=== PATIENT | male | born 1950 | race Caucasian/White ===

== ENCOUNTER 2020-05-09 09:50 | Emergency (ER) | payer OTHER, SELFPAY ==
[2020-05-09 09:52] VITALS: BP 114/67; PULSE 61; RESP 17; TEMP 36.6; O2SAT 96; BMI 32.3
--- NOTE | 2020-05-09 10:32 | ED.DCSUM_ITS ---
- ER Visit Summary Date of Service: 05/09/20 Chief Complaint: [Not feeling well] History of Present Illness: The patient is a 70 M [presents to the emergency department with complaint of illness for the last week and a half. Patient complains of a mild cough. Has had fever. This morning he had fever up to 101.3. Patient's had diarrhea off and on for several days. He denies any vomiting. He denies any exposures to COVID-19 although he has been around some individuals that have been ill. Patient has a history of hypertension. Patient denies urinary symptoms. He denies any abdominal pain. She denies headache or body aches. Patient denies sore throat. Patient does state that he is had somewhat diminished sense of taste.] Physical Examination: [HEENT-PERRLA, EOMI. Cranial nerves II through XII grossly intact. TMs clear. Mucous membranes moist. No adenopathy. Cardiovascular-regular rate and rhythm without murmur or ectopy Lungs-clear to auscultation, chest wall stable without crepitus or subcu emphysema Abdomen-normoactive bowel sounds, soft, nontender, no rebound or rigidity, no peritoneal signs. Extremities-intact ?4, normal range of motion, normal pulses, atraumatic] Test Results: [CBC with differential showing a 2.9, hemoglobin 13.8, hematocrit 40, platelets 102. Patient had 16% lymphocytes. Chemistries unremarkable. Urinalysis ordered and pending. Chest x-ray obtained showed left lower lobe infiltrate as well as possible infiltrate of the right lower lobe and right upper lobe.] Emergency Department Course and Treatment: [Blood cultures ordered.] Patient had Covid 19 swab ordered which will be a send out. Patient was started on Levaquin 750 mg IV. Treatment Plan: [Patient will be treated with Levaquin to cover for bacterial causes although my suspicion is that this is a viral pneumonia such as possibly COVID-19. Patient will be advised to self quarantine for the next 14 days. Patient advised to return to the ER if increasing shortness of breath or condition should worsen anyway.] Patient is in no respiratory distress. Vital signs are unremarkable. Disposition: [Discharged home in stable condition] Impression: [Pneumonia-suspect viral-rule out COVID-19] This note was generated with [employer] software. It may contain incorrect words, spelling, and punctuation that were not noted in review of the chart prior to signing ED Disposition - Plan for ED Patient: Referrals: Ellis Carter DO [Primary Care Provider] -
[2020-05-09 11:16] LABS: Anion Gap 6 (5-15); BUN 11 mg/dL (7-18); BUN/Creat Ratio 12.5 RATIO (10-20); Calcium,Total 8.3 mg/dL (8.5-10.1); Chloride 100 mmol/L (98-107); Creatinine, Serum 0.88 mg/dL (0.70-1.30); EST Glomerular Filtration Rate 91 mL/min (>60); Est Glom Filt Rate - Afr Amer 110 mL/min (>60); Estimated Creatinine Clearance 69.89 ml/min; Glucose 99 mg/dL (74-106); Potassium 3.5 mmol/L (3.5-5.1); Sodium Level 135 mmol/L (136-145)
[2020-05-09 11:17] LABS: Absolute Lymphocyte Count 0.46 X10^3/uL (0.83-4.51); Absolute Neutrophil Count 2.2 X10^3/uL (2.0-7.7); Basophil# 0.01 X10^3/uL; Basophil% 0.3 % (0-1); Hematocrit 40.5 % (40-54); Hemoglobin 13.8 g/dL (13.0-16.5); Lymphocyte # 0.46 X10^3/ul (4.0); Mean Corp Hgb Conc 34.1 g/dL (32-36); Mean Corpuscular Hgb 29.7 pg (27.0-32.0); Mean Corpuscular Volume 87.3 fL (80-94); Mean Platelet Vol. 9.9 fl (6.2-12.0); Monocyte# 0.25 X10^3/uL; Monocyte% 8.7 % (0-10); NRBC Flagged by Analyzer 0 % (0-5); Neutrophil # 2.15 X10^3/uL (2.7-7.7); Neutrophil % 74.7 % (47-70); POSITIVE DIFFERENTIAL YES; Platelet Count 102 K/mm3 (150-450); RBC Distribution Width CV 11.5 % (11.6-14.6); Red Blood Count 4.64 M/mm3 (4.6-6.2); White Blood Count 2.9 K/mm3 (4.4-11.0)
[2020-05-09 11:19] LABS: Lactic Acid 0.8 mmol/L (0.4-1.9)
--- NOTE | 2020-05-09 11:34 | RAD_ITS ---
STUDY: X-RAY CHEST REASON FOR EXAM: Male, 70 years old. Fever, cough, diarrhea, nausea x 1 week TECHNIQUE: Single AP portable view of the chest. COMPARISON: None. FINDINGS: Focal infiltrate in the left lower lobe as well as increased markings in the right lower lobe. Minimal increased markings in the right upper lobe as well. There is no demonstrated pleural abnormality. Normal size heart. Normal mediastinum and tim. Normal visualized pulmonary arteries. Normal visualized aortic arch and descending thoracic aorta. There are diffuse degenerative changes of the visualized thoracic spine. Normal visualized ribs, clavicles, and shoulders. There is no demonstrated abnormality of the visualized soft tissue structures of the upper abdomen. RAD/Chest 1 View (Portable) IMPRESSION: Findings suggestive of a focal infiltrate in the left lower lobe as well as increased markings in the right lower lobe and right upper lobe. Electronically Signed: Denis Yarbrough, at 12:44 EDT , Service support ,
[2020-05-09 11:59] LABS: Differential Indicated SCAN CRITERIA MET
[2020-05-09 12:00] LABS: Platelet Estimate SLT DEC (ADEQ); Red Cell Morphology NORM C+C NORMAL (NORM C&C)
[2020-05-09] MEDS: 0.9% Normal Saline 1,000 ML 1000 ML IV (12:57)
[2020-05-09 13:00] VITALS: BP 148/80; BP 148/88; PULSE 58; PULSE 66; RESP 17; RESP 18; TEMP 37.1; O2SAT 93; O2SAT 96
[2020-05-09 13:05] LABS: Bacteria 0 SEEN /hpf (None Seen); Mucous, Urine 0 SEEN /hpf (<or=2+); Red Blood Cells-Urine 0 SEEN /hpf (0-5); Squamous Epithelial Cells - UA 0 SEEN /hpf (0-5); White Blood Cells 0 SEEN /hpf (0-5)
[2020-05-09 13:08] LABS: Color, Urine Yellow (Yellow); Glucose, Dipstick Normal (Normal); Ketone-Dipstick Negative (Negative); Leukocyte Esterase-Dipstick Negative /ul (Negative); Nitrite-Dipstick Negative (Negative); Occult Blood-Urine Negative /ul (Negative); Protein-Dipstick 15 mg/dl (Negative); Urine Bilirubin Dipstick Negative (Negative); Urine Clarity Clear (Clear); Urine Urobilinogen Normal (Normal); Urine pH 6.5 (5.0 - 8.0)
--- NOTE | 2020-05-09 13:30 | ED.DEP ---
ED Disposition - Plan for ED Patient: Instructions: ED Upper Resp Infec Abx Tx Prescriptions: Levofloxacin [Levaquin] 750 mg PO DAILY #7 tab Prescription Printed Referrals: Ellis Carter DO [Primary Care Provider] - 5-7 Days
[2020-05-09] MEDS: levoFLOXacin IV 750 MG/150 ML BAG 100 MG IV (13:49)
[2020-05-09 16:15] VITALS: BP 132/78; PULSE 71; RESP 16; O2SAT 97
[2020-05-10 14:18] LABS: Pathologist Review Reviewed
== END 2020-05-09 16:17 | disposition home or self-care (01) ==
LOC: ED 11:34
PROVIDERS: Emergency Provider Emergency Medicine; PCP Family Medicine
DX: J18.9 Pneumonia, unspecified organism (principal); I10 Essential (primary) hypertension; R19.7 Diarrhea, unspecified
CPT/HCPCS: 71045; 80048; 81001; 83605; 85025; 87040; 87635; 96365; 96366; 99283; J7030; A4216; U0003

== ENCOUNTER 2023-08-11 09:19 | Inpatient (IN) | payer OTHER, SELFPAY ==
[2023-08-11 09:20] VITALS: BP 147/96; PULSE 63; RESP 18; TEMP 36.8; O2SAT 99; BMI 33.7
--- NOTE | 2023-08-11 10:18 | RAD_ITS ---
STUDY: X-RAY - PELVIS AND LEFT HIP REASON FOR EXAM: Male, 73 years old. Left hip pain following a fall. TECHNIQUE: 3 views of the pelvis and hip. COMPARISON: None. FINDINGS: There is a non-specific bowel gas pattern. Evidence of prior left inguinal hernia repair. There is narrowing with cortical sclerosis and osteophyte formation of the sacroiliac joint consistent with degenerative osteoarthritic changes. Normal bilateral superior and inferior pubic rami. Normal pubic symphysis. Normal bilateral ischial tuberosities. There is evidence of an impacted left intertrochanteric fracture. RAD/HIP, UNI W/ Pelvis 2-3 Views IMPRESSION: Impacted left intertrochanteric fracture. Electronically Signed: Denis Yarbrough MD at 11:17 EST ,
--- NOTE | 2023-08-11 10:19 | EX.ED.GENINJ ---
HPI History of Present Illness Chief Complaint: Fall Informant: patient, family and EMS Narrative Narrative: 73-year-old male presenting to the emergency room following a fall. Patient states that he slipped on the ice today he is unsure of how he landed. He notes pain the medial aspect of the left Hip region. He was unable to get up off the ground. He denies injury to head neck or back. He notes no significant pain in his knee. [facility] Medical History (Updated 08/11/23 @ 10:[address] Shahid Mitchell DO) Anxiety Hypertension Home Medications levofloxacin 750 mg tablet 750 mg PO DAILY ANTIBIOTIC #7 tabs 05/09/20 [Rx Last Taken Unknown] lorazepam 1 mg tablet 0.5 - 1 mg PO BID ANXIETY 05/09/20 [History Last Taken Unknown] metoprolol tartrate 25 mg tablet 25 mg PO BID BLOOD PRESSURE 05/09/20 [History Last Taken Unknown] pantoprazole 40 mg tablet,delayed release 40 mg PO DAILY ACID REFLUX 05/09/20 [History Last Taken Unknown] sertraline 100 mg tablet 100 mg PO DAILY DEPRESSION 05/09/20 [History Last Taken Unknown] Allergy/AdvReac Type Severity Reaction Status Date / Time No Known Allergies Allergy Verified 08/11/23 09:24 Family History no significant family his Social History Smoking Status: Never smoker ROS ROS ED Constitutional Constitutional ED: Denies chills, fever(s) or weight loss Eyes Eyes: Denies change in vision or diplopia ENT ENT ED: Denies ear pain, rhinorrhea or sore throat Cardiovascular Cardiovascular: Denies chest pain, orthopnea, palpitations or racing heartbeat Respiratory/Chest Respiratory/Chest: Denies cough, dyspnea or orthopnea Gastrointestinal Gastrointestinal: Reports nausea; Denies abdominal pain, diarrhea or vomiting Genitourinary Genitourinary ED: Denies dysuria, hematuria or urinary frequency Musculoskeletal Musculoskeletal: Reports other Details: Left hip pain ; Denies arthralgias, back pain, myalgias or neck pain Integumentary Denies abscess or rash Neurologic Neurologic: Denies headache(s) or weakness Psychiatric Psychiatric: Denies anxiety, depression, suicidal ideation or suicidal thoughts Endocrine Endocrinology: Denies polydipsia, polyphagia or polyuria Allergic/Immunologic Allergic/Immunologic ED: Denies mouth swelling, tongue swelling or urticaria EXAM Physical Exam Const Vital Signs: 08/11/23 09:20 08/11/23 09:37 Temperature 98.2 F Temperature Source Temporal Pulse Rate 63 Respiratory Rate 18 Respiratory Effort Normal Blood Pressure 147/96 H Blood Pressure Mean 113 Pulse Ox 99 Oxygen Delivery Method Room Air Room Air Positive well nourished and well developed General Appearance ED: well developed HEENT Reports normocephalic, head/scalp atraumatic and moist mucous membranes Eyes PERRL and EOMs intact bilaterally Neck no lymphadenopathy, supple and no JVD Resp normal respiratory effort and clear to auscultation bilaterally Cardio regular rate, regular rhythm and no murmurs GI normal to inspection, nondistended, normoactive bowel sounds and non-tender Palpation: soft Back/Spine no CVA tenderness and normal ROM Extremity Extremity Narrative: limited left hip movement. No pain over the greater trochanter. There is a contusion noted over the medial aspect of the left knee. No obvious deformity. Neurovascular intact. General Extremety ED: Negative for edema General Extremity: Negative for edema Neuro oriented x3 and CN's II-XII intact bilaterally [place] Coma Scale: document GCS findings Spontaneous Obeys Commands Oriented 15 Sensorium / Orientation: alert Motor Exam: strength 5/5 throughout Psych mental status grossly normal Mood & Affect: Negative for depressed or tearful Skin no rashes or lesions noted and no wounds MDM MDM MDM Narrative Medical decision making narrative: My independent interpretation is plain films of the left hip and pelvis is a intertrochanteric hip fracture. My independent interpretation of the plain films of the left knee is no acute fracture. My independent interpretation of the chest x-ray is no acute process. Patient received pain and nausea medication. Ice discussed the case with Dr. Antonio who would like to plan on surgery tomorrow. I spoke with the hospitalist, Dr. Lynch, who will be down to discussed with the patient admission History & Record Review Discussion w/independent historian: EMS personnel, Patient and Family Additional record(s) reviewed:: Prior labs Lab Data Attestation: I reviewed the patient's lab results. Labs: Laboratory Results - last 24 hr 08/11/23 11:00 WBC 13.8 H RBC 5.24 Hgb 15.6 Hct 44.5 MCV 84.9 MCH 29.8 MCHC 35.1 RDW Std Deviation 36.7 RDW Coeff of Joesph 12.0 Plt Count 156 MPV 9.7 Immature Gran % (Auto) 0.700 Neut % (Auto) 85.8 H Lymph % (Auto) 8.2 L [place] % (Auto) 4.8 Eos % (Auto) 0.3 Baso % (Auto) 0.2 Absolute Neuts (auto) 11.9 H Absolute Lymphs (auto) 1.14 Nucleated RBC % 0 PT 14.5 INR 1.1 APTT 29.1 Sodium 138 Potassium 3.7 Chloride 106 Carbon Dioxide 26.0 Anion Gap 6 BUN 17 Creatinine 0.84 Estim Creat Clear Calc 87.03 Est GFR (MDRD) Af Amer 116 Est GFR (MDRD) Non-Af 96 BUN/Creatinine Ratio 20.3 H Glucose 106 Calcium 9.1 Radiography Diagnostic Testing: Clinical Impression(s) from Imaging Studies Hip/Pelvis X-Ray 08/11/23 10:18 IMPRESSION: Impacted left intertrochanteric fracture. Electronically Signed: Denis Yarbrough MD at 11:17 EST , Knee X-Ray 08/11/23 10:21 IMPRESSION: Degenerative arthrosis. Electronically Signed: Denis Yarbrough MD at 11:28 EST , Chest X-Ray 08/11/23 10:45 IMPRESSION: No acute abnormality is seen. Electronically Signed: Denis Yarbrough MD at 11:14 EST , EKG Initial EKG: Attestation: I personally reviewed and interpreted this EKG as follows: Comments: Normal sinus rhythm with a ventricular to 69 bpm. No concerning features of ACS noted Discharge Plan Dx/Rx/DC Orders Clinical Impression: Fall, Closed intertrochanteric fracture of left hip, Contusion of knee, left Disposition Disposition: Acute Care Hospital [facility]
--- NOTE | 2023-08-11 10:21 | RAD_ITS ---
STUDY: X-RAY - LEFT KNEE REASON FOR EXAM: Male, 73 years old. Left hip pain following a fall. TECHNIQUE: 4 view(s) of the knee. COMPARISON: None. FINDINGS: Normal visualized distal femur. Normal visualized proximal tibia and fibula. Normal proximal tibiofibular articulation. There is moderate degenerative arthrosis of the medial femorotibial compartment with moderate joint space narrowing. There is moderate degenerative arthrosis of the lateral femorotibial compartment with moderate joint space narrowing. There is moderate degenerative arthrosis of the patellofemoral articulation. There are atherosclerotic calcifications. RAD/Knee 1 or 2 Views IMPRESSION: Degenerative arthrosis. Electronically Signed: Denis Yarbrough MD at 11:28 EST ,
[2023-08-11] MEDS: Ondansetron 4 MG/2 ML Vial IV (10:24)
[2023-08-11] MEDS: Morphine 4 MG/ML Syringe IV ×2 (10:25→11:51)
--- NOTE | 2023-08-11 10:45 | RAD_ITS ---
STUDY: X-RAY CHEST REASON FOR EXAM: Male, 73 years old. FALL TECHNIQUE: Single AP portable view of the chest. COMPARISON: Comparison is made with prior study dated May 09, 2020. FINDINGS: The lungs are clear and expanded. There is no demonstrated pleural abnormality. Normal size heart. Normal mediastinum and tim. Normal visualized pulmonary arteries. There is atherosclerotic tortuosity of the aortic arch and descending thoracic aorta. There are diffuse degenerative changes of the visualized thoracic spine. There is degenerative osteoarthritis of the bilateral shoulders. There is no demonstrated abnormality of the visualized soft tissue structures of the upper abdomen. RAD/Chest 1 View (Portable) IMPRESSION: No acute abnormality is seen. Electronically Signed: Denis Yarbrough MD at 11:14 EST ,
--- NOTE | 2023-08-11 11:02 | NURSING ---
NO OLD EKGS
[2023-08-11 11:18] LABS: Absolute Lymphocyte Count 1.14 X10^3/uL (0.83-4.51); Absolute Neutrophil Count 11.9 X10^3/uL (2.0-7.7); Basophil# 0.03 X10^3/uL; Basophil% 0.2 % (0-1); Eosinophil# 0.04 X10^3/uL; Eosinophils% 0.3 % (0-5); Hematocrit 44.5 % (40-54); Hemoglobin 15.6 g/dL (13.0-16.5); Lymphocyte # 1.14 X10^3/ul (0.83-4.51); Lymphocyte % 8.2 % (19-41); Mean Corp Hgb Conc 35.1 g/dL (32-36); Mean Corpuscular Hgb 29.8 pg (27.0-32.0); Mean Corpuscular Volume 84.9 fL (80-94); Mean Platelet Vol. 9.7 fl (6.2-12.0); Monocyte# 0.66 X10^3/uL; Monocyte% 4.8 % (0-10); NRBC Flagged by Analyzer 0 % (0-5); Neutrophil # 11.87 X10^3/uL (2.7-7.7); Neutrophil % 85.8 % (47-70); Platelet Count 156 K/mm3 (150-450); RBC Distribution Width SD 36.7 fl (35.1-43.9); Red Blood Count 5.24 M/mm3 (4.6-6.2); White Blood Count 13.8 K/mm3 (4.4-11.0)
[2023-08-11 11:24] LABS: International Normalized Ratio 1.1; Prothrombin Time (Protime)PT. 14.5 SECONDS (11.7-14.9)
[2023-08-11 11:25] LABS: Partial Thromboplast Time 29.1 Seconds (24.1-36.2)
[2023-08-11 11:26] LABS: Anion Gap 6 (5-15); BUN 17 mg/dL (7-18); BUN/Creat Ratio 20.3 RATIO (10-20); Calcium,Total 9.1 mg/dL (8.5-10.1); Chloride 106 mmol/L (98-107); Creatinine, Serum 0.84 mg/dL (0.70-1.30); EST Glomerular Filtration Rate 96 mL/min (>60); Est Glom Filt Rate - Afr Amer 116 mL/min (>60); Estimated Creatinine Clearance 87.03 ml/min; Glucose 106 mg/dL (74-106); Potassium 3.7 mmol/L (3.5-5.1); Sodium Level 138 mmol/L (136-145)
--- NOTE | 2023-08-11 11:45 | NURSING ---
DR NUVIA GANDHI
--- NOTE | 2023-08-11 11:48 | NURSING ---
MED SURG NUVIA LEFT INTERTROCHANTERIC HIP FX
[2023-08-11 12:08] VITALS: BP 132/82; PULSE 65; RESP 18; O2SAT 99
--- OUTSIDE RECORDS SUMMARY | 2023-08-11 12:18 | XMS RPT_ITS | CCD ---
Author Name Unknown Address [address] [place] [address] Organization [facility] Care Team Providers Care Boat Rental Clerk Name Role Phone Unavailable Primary Care Provider UnavailEVA Pinzon Admitting Unavailable EVA CERON Attending Unavailable MICHELL, EVA Rosenthal Primary Care Unavailable ELLIS CARTER MD Consulting Unavailable PROVIDER, UNKNOWN Consulting Unavailable EVA CERON Admitting Unavailable EVA CERON Attending Unavailable EVA CERON Primary Care Unavailable ELLIS CARTER MD Consulting Unavailable PROVIDER, UNKNOWN Consulting Unavailable MICHELLEVA ADAN Admitting Unavailable MICHELLEVA ADAN Attending Unavailable EVA CERON Primary Care Unavailable ELLIS CARTER MD Consulting Unavailable PROVIDER, UNKNOWN Consulting Unavailable EVA CERON Admitting Unavailable EVA CERON Attending Unavailable EVA CERON Primary Care Unavailable ELLIS CARTER MD Consulting Unavailable PROVIDER, UNKNOWN Consulting Unavailable MANUELITO GIL Admitting Unavailable MANUELITO GIL Attending Unavailable MANUELITO GIL Primary Care Unavailable ELLIS CARTER MD Consulting Unavailable PROVIDER, UNKNOWN Consulting Unavailable Unavailable Primary Care Provider UnavailCam Noonan Attending Unavailable Ellis Carter Primary Care Unavailable PROVIDER, UNKNOWN Referring Unavailable Cam Newman Attending Unavailable Ellis Carter Primary Care Unavailable PROVIDER, UNKNOWN Referring Unavailable CAM NEWMAN Attending Unavailable CAM NEWMAN Admitting Unavailable CAM NEWMAN Attending Unavailable CAM NEWMAN Referring Unavailable Medications Current Medications Medication Drug Class(es) Dates Sig (Normalized) Sig (Original) acetaminophen 325 mg / oxyCODONE hydrochloride 5 mg oral tablet (1 source) Opioid Agonist Start: 12-13-2019 End: 12-20-2019 take 1 tablet by mouth every six hours as needed for pain oxyCODONE-acetaminop hen (PERCOCET) 5-325 MG per tablet Indications: Symptomatic cholelithiasis Take 1 tablet by mouth every 6 hours as needed for Pain for up to 7 days. 28 tablet 0 12/13/2019 12/20/2019 Active 1 ml diphenhydrAMINE hydrochloride 50 mg/ml cartridge (2 sources) Histamine-1 Receptor Antagonist Start: 03-28-2022 End: 03-28-2022 diphenhydrAMINE (BENADRYL) injection 12.5 mg Completed/Discontinued Medications Medication Drug Class(es) Dates Sig (Normalized) Sig (Original) acetaminophen 500 mg oral tablet (1 source) Start: 12-13-2019 End: 12-13-2019 acetaminophen (TYLENOL) tablet 1,000 mg Problems Problem Classification Problem Date Documented Date Episodic/Chronic Abdominal hernia (5 sources) Umbilical hernia without obstruction or gangrene; Translations: [Diaphragmatic hernia without obstruction or gangrene] Onset: 08-29-2019 Episodic Anxiety disorders (2 sources) Anxiety disorder, unspecified; Translations: [Anxiety disorder, unspecified] Onset: 03-28-2022 Chronic Biliary tract disease (3 sources) Biliary calculus; Translations: [Symptomatic cholelithiasis] Onset: 12-05-2019 12-05-2019 Episodic Complications of surgical procedures or medical care (2 sources) Other postprocedural complications and disorders of digestive system; Translations: [Oth postprocedural complications and disorders of dgstv sys] Onset: 03-28-2022 Episodic Esophageal disorders (6 sources) Gastroesophageal reflux disease without esophagitis; Translations: [Gastro-esophageal reflux disease without esophagitis] Onset: 12-05-2019 12-05-2019 Chronic Essential hypertension (2 sources) Essential (primary) hypertension; Translations: [Essential (primary) hypertension] Onset: 03-28-2022 Chronic Gastritis and duodenitis (2 sources) Unspecified chronic gastritis without bleeding; Translations: [Unspecified chronic gastritis without bleeding] Onset: 03-28-2022 Chronic Immunizations and screening for infectious disease (1 source) Encounter for observation for suspected exposure to other biological agents ruled out; Translations: [Encounter for observation for suspected exposure to other biological agents ruled out] Onset: 12-31-2019 Episodic Mood disorders (2 sources) Mood disorders; Translations: [Depression, unspecified] Onset: 03-28-2022 Other aftercare (2 sources) Other office services specialist (current) drug therapy; Translations: [Other office services specialist (current) drug therapy] Onset: 03-28-2022 Episodic Other aftercare (2 sources) Encounter for other specified surgical aftercare; Translations: [Encounter for other specified surgical aftercare] Onset: 07-22-2022 Episodic Other upper respiratory infections (2 sources) Acute pharyngitis, unspecified; Translations: [Acute pharyngitis, unspecified] Onset: 12-31-2019 Episodic Unclassified (1 source) Patient encounter status; Translations: [Pre-op testing] Results Test Name Value Interpretation Reference Range Facil ity Vital Signs Date Time Vital Sign Value Performing Clinician Faci lity 03-28-2022 14:30-0400 SaO2% (BldA) [Mass fraction] 97 % Cam Newman MD Work Phone: [facility] 03-28-2022 14:15-0400 Diastolic blood pressure 88 mm[Hg] Cam Newman MD Work Phone: [facility] 03-28-2022 14:15-0400 Heart rate 68 /min Cam Newman MD Work Phone: [facility] 03-28-2022 14:15-0400 Respiratory rate 16 /min Cam Newman MD Work Phone: [facility] 03-28-2022 14:15-0400 Systolic blood pressure 140 mm[Hg] Cam Newman MD Work Phone: [facility] 03-28-2022 13:28-0400 Body temperature 98.49 [degF] Cam Newman MD Work Phone: [facility] 03-28-2022 11:02-0400 Body height 167.6 cm Cam Newman MD Work Phone: [facility] 03-28-2022 11:02-0400 Body mass index (BMI) [Ratio] 29.86 kg/m2 Cam Newman MD Work Phone: [facility] 03-28-2022 11:02-0400 Body weight 83.92 kg Cam Newman MD Work Phone: [facility] 03-28-2022 08:30-0400 Body temperature 98.2 [degF] Cam Newman MD Work Phone: [facility] 03-28-2022 08:30-0400 Diastolic blood pressure 87 mm[Hg] Cam Newman MD Work Phone: [facility] 03-28-2022 08:30-0400 Heart rate 55 /min Cam Newman MD Work Phone: [facility] 03-28-2022 08:30-0400 Respiratory rate 18 /min Cam Newman MD Work Phone: [facility] 03-28-2022 08:30-0400 SaO2% (BldA) [Mass fraction] 98 % Cam Newman MD Work Phone: [facility] 03-28-2022 08:30-0400 Systolic blood pressure 143 mm[Hg] Cam Newman MD Work Phone: [facility] 12-13-2019 15:15-0400 BP Diastolic 93 mm[Hg] [place] 12-13-2019 15:15-0400 BP Systolic 147 mm[Hg] [facility] [place] 12-13-2019 15:15-0400 Pulse (Heart Rate) 56 /min [place], [place] 12-13-2019 15:15-0400 Pulse Oximetry 98 % [place] 12-13-2019 15:15-0400 Respiratory Rate 16 /min [facility] 12-13-2019 13:13-0400 Body Temperature 97.39 [degF] [facility] 12-13-2019 09:50-0400 BMI (Body Mass Index) 29.05 kg/m2 [facility] 12-13-2019 09:50-0400 Body weight 81.65 kg [facility] [place] 12-13-2019 09:50-0400 Height 167.6 cm [place] 12-09-2019 10:54-0400 Body Temperature 99.39 [degF] [place], [place] 12-09-2019 10:54-0400 BP Diastolic 77 mm[Hg] [place] 12-09-2019 10:54-0400 BP Systolic 136 mm[Hg] [place] 12-09-2019 10:54-0400 Pulse (Heart Rate) 55 /min [place] 12-09-2019 10:54-0400 Pulse Oximetry 97 % [place] 12-09-2019 10:54-0400 Respiratory Rate 20 /min [place] 12-09-2019 10:54-0400 BMI (Body Mass Index) 31.05 kg/m2 [place] 12-09-2019 10:54-0400 Body weight 87.27 kg [place] 12-09-2019 10:54-0400 Height 167.6 cm [place] Encounters Encounter Date Encounter Type Care Provider Facility Start: 07-22-2022 End: 07-22-2022 ambulatory [facility] Start: 07-05-2022 End: 07-06-2022 ambulatory [facility] Start: 07-04-2022 End: 07-05-2022 ambulatory [facility] Start: 06-27-2022 End: 06-27-2022 ambulatory [facility] Start: 03-28-2022 End: 03-28-2022 ambulatory [facility] Start: 03-28-2022 End: 03-28-2022 Subsequent hospital visit by physician Cam Newman MD Work Phone: [facility] [facility] Procedures Date Procedure Procedure Detail Performing Clinician Start: 03-28-2022 OPERATIVE REPORT Physic dayne Generic Start: 12-13-2019 OPERATIVE REPORT 3m Sca nning Start: 12-09-2019 Blood count hemoglobin Rosie Moody Work Phone: Start: 12-09-2019 Comprehensive metabo lic panel Rosie Moody Work Phone: Start: 11-25-2019 Us abdominal real ti me w/image limited Rosie Moody Work Phone: Plan of Treatment Date Care Activity Detail Author Start: 04-08-2022 End: 04-08-2022 Telemedicine consultation with patient 04/08/2022 Telemedicine [facility] Cam Newman MD [address] [place], [place] [id number] [facility] [place] [facility] Start: 03-28-2022 Subsequent hospital visit by physician 03/28/2022 Hospital Encounter General Surgery Cam Newman MD [address] [place], [place] [id number] [facility] Start: 03-20-2022 Influenza vaccination Flu vaccine (# 1) [facility] Start: 03-20-2020 Influenza vaccination Flu vacc ine (Season Ended) [place] Start: 12-27-2019 End: 12-27-2019 Office Visit 12/27/2019 Office Visit [facility]oscopic Surgery Rosie Moody PA-C [address] [place] [address] [phone] [place] [facility] Start: 12-13-2019 Hospital Encounter 12/13/2019 Hospital Encounter General Surgery Cam Newman MD [address] [place], [place] [id number] [facility] General [facility] Start: 2017 Pneumococcal 65+ yea rs Vaccine (1 - PCV) Pneumococcal 65+ years Vaccine (1 - PCV) [facility] Start: 2017 Pneumococcal 65+ yea rs Vaccine (1 of 1 - PPSV23) Pneumococcal 65+ years Vaccine (1 of 1 - PPSV23) [place] Start: 2002 Screening for malign ant neoplasm of colon Colon cancer screen colonoscopy [place], [place] Start: 2002 Shingles Vaccine (1 of 2) Tsai gles Vaccine (1 of 2) [facility] Start: 1997 Screening for malign ant neoplasm of colon [facility] Start: 1992 Diabetes screen Diabetes screen [place], [place] Start: 1992 Lipid panel [facility] Start: 1971 DTaP/Tdap/Td vaccine (1 - Tdap) DTaP/Tdap/Td vaccine (1 - Tdap) [facility] Start: 1970 Hepatitis C screening Hepatitis C sc fabio [facility] Start: 1964 Depression Screen Depression Screen [facility] Start: 1950 COVID-19 Vaccine (#1) COVID-19 Vacci ne (#1) [facility] Start: 1950 Hepatitis C screening Hepatitis C [facility] [place] End: 12-13-2019 Blood glucose - POCT Blood glucose - POCT Point of Care Testing STAT One Time for 1 Occurrences starting 12/13/2019 until 12/13/2019 [place], [place] Payers Date Payer Category Payer Unknown [id number] 1950 Unknown [id number] 1950 Unknown [id number] 1950 Unknown [id number] Self-pay Unknown [id number] Social History Date Type Detail Facility Start: 11-04-2019 End: 11-10-2019 Tobacco smoking status NHIS Never smoker [place] Start: 11-10-2019 End: 03-28-2022 Alcohol intake Lifetime non-drinker (finding) [place] Start: 11-04-2019 History SDOH Alcohol Frequency 1 [place], [place] Start: 1950 Sex Assigned At Not on file [place] Exposure to SARS-CoV -2 (event) Unable to assess [place] Start: 11-04-2019 Tobacco use and exposure Smokeless tobacco non-user [facility] Work Phone: Start: 03-18-2022 End: 03-28-2022 Exposure to SARS-CoV-2 (event) Not sure [facility] Clinical Notes 03-28-2022 to 07-05-2022 Kathleen Abel RN - 03/28/2022 1:28 PM EDTDischarge InstructionsDischarge Instructions Note Date & Type Note Facility 07-05-2022 Note Discharge Summary Mio Roper : 1950 ADMIT DATE: 07/04/2022 DISCHARGE DATE: 07/05/2022 PRIMARY CARE PHYSICIAN: Ellis Carter VISIT STATUS: Observation CODE STATUS: Full Code DISCHARGE DIAGNOSES: Principal Problem: Hiatal hernia Active Problems: PONV (postoperative nausea and vomiting) Recurrent incisional hernia HOSPITAL COURSE: Patient underwent planned HH repair with toupet fundoplication, repair of recurrent incisional hernia with mesh, and upper endoscopy on 07/04. Patient tolerated the procedure well, and was taken to the post-surgical floor for further recovery and monitoring. He underwent and UGI with KUB that showed no leak, and he was then started on a clear liquid diet. He was ambulating, voiding, and tolerating PO intake appropriately, therefore was deemed ready for discharge. SIGNIFICANT DIAGNOSTIC STUDIES: UGI - neg for leak CONSULTANTS: N/a RECOMMENDED NEXT STEPS: Follow up in clinic, follow post-op diet DISCHARGE MEDICATIONS: Medication List START taking these medications ondansetron 4 MG tablet Commonly known as: Zofran Take 1 tablet (4 mg) by mouth every 8 hours as needed for nausea or vomiting for up to 7 days. oxyCODONE-acetaminophen 5-325 MG tablet Commonly known as: Percocet Take 1 tablet by mouth every 6 hours as needed for severe pain (7-10) for up to 7 days. CONTINUE taking these medications LOPRESSOR PO LORazepam 1 MG tablet Commonly known as: Ativan omeprazole [address] capsule Commonly known as: PriLOSEC sertraline 100 MG tablet Commonly known as: Zoloft Where to Get Your Medications These medications were sent to [facility] [address] [place] [id number] Hours: Thursday to Thursday 10 am to 6 pm ondansetron 4 MG tablet oxyCODONE-acetaminophen 5-325 MG tablet DIET: Adult diet Clear liquid ACTIVITY: No heavy lifting. __ COMPLEXITY OF FOLLOW UP: [x] Moderate Complexity: follow up within 7-14 calendar days (21997) [] Severe Complexity: follow up within 7 calendar days (73546) FOLLOW UP TESTING, PENDING RESULTS OR REFERRALS AT TRANSITIONAL CARE VISIT: [] Yes [x] No PENDING STUDIES: na DISPOSITION: Home FACILITY/HOME CARE AGENCY NAME: n/a Follow up with Cam Newman MD [address] [facility] [address] [facility] [address] Schedule an appointment as soon as possible for a visit in 2 week(s) postop check INSTRUCTIONS TO MA/SW: Please call patient on day after discharge (must document patient contacted within 2 business days of discharge). FOLLOW UP QUESTIONS FOR MA/SW: 1. Did you get medications filled and taking them as instructed from discharge? 2. Are you following your discharge instructions from your hospital stay? 3. Please confirm patient is scheduled for a follow up appointment within the above time frame. DISCHARGE TIME: < 30 minutes SIGNED: Kathie Morgan MD 07/05/2022, 4:[address] [facility] 07-05-2022 Note GENERAL SURGERY Prog ress Note PATIENT NAME: Mio Roper TODAY'S DATE: 07/05/2022 SUBJECTIVE: Patient doing well this am. Pain is controlled. Tolerating CLD. Denies nausea or emesis. OBJECTIVE: VITALS: BP 124/73 (BP Location: Right arm, Patient Position: Sitting) Pulse 68 Temp 37.2 ?C (99 ?F) (Temporal) Resp 16 Ht 5' 6 (1.676 m) Wt 185 lb (83.9 kg) SpO2 93% BMI 29.86 kg/m? INTAKE/OUTPUT: I/O last 3 completed shifts: In: 1191.7 (14.2 mL/kg) [I.V.:1072 (12.8 mL/kg); IV Piggyback:119.7] Out: 20 (0.2 mL/kg) [Blood:20] Weight: 83.9 kg No intake/output data recorded. REVIEW OF SYSTEMS: Pertinent positives and negatives as per interval history section PHYSICAL EXAM: CONSTITUTIONAL: Oriented to person, place, and time. Appears well nourished. No distress HEAD: Normocepalic,atraumatic, without obvious abnormality EYES: no scleral icterus. Conjunctivae not injected. NECK: supple, symmetrical, trachea midline LUNGS: Resp effort easy and unlabored, breath sounds normal CARDIOVASCULAR: NO JVD, RRR, No murmur ABDOMEN: soft, ND, ATTP. Incisions CDI MUSCULOSKELETAL: Normal range of motion. No deformity NEUROLOGIC: Mental Status Exam: Level of Alertness: Awake SKIN: Warm, dry, well perfused Data: CBC: Recent Labs 07/04/22 1141 07/05/22 0335 WBC -- 11.3* HGB 14.4 14.3 HCT 42.5 42.5 PLT -- 157 BMP: Recent Labs 07/04/22 1141 07/05/22 0335 NA 137 134* K 3.8 4.2 CL 108* 107 CO2 26 24 BUN 17 18 CREATININE 0.78 0.82 GLUCOSE 155* 119* Hepatic: No results for input(s): AST, ALT, BILITOT, ALKPHOS in the last 72 hours. No lab exists for component: ALB ASSESSMENT AND PLAN: 72 year old male sp HH repair with toupet fundoplication 07/04 - No further surgical intervention - UGI pending - Continue CLD - Plan for DC pending UGI - Discussed with Dr. Tyshawn Tsai MD MD, PGY-5 Surgery *1900 PAGING: From -6p (- weekends): Page me at [phone] From 6p-6a (- weekends): - Surg ICU Patients: Page [phone] - Surg Floor Patients: Page [phone] ATTESTATION The patient was seen and examined. I have reviewed the patients presentation, histories, imaging and serology studies. I agree with the above assessment and plan. Ab: appropriately tender to palpation over surgical sites. Incision/dressing is clean, dry, and intact. Patient is doing well, pain is well controlled. Upper GI is preliminarily negative for leak. Okay to advance to Jerry diet protocol. Anticipate discharge later today if patient continues to progress. All of his questions were answered. -- I (Eliezer Villagran) personally supervised the resident/fellow in the evaluation and development of a treatment plan for this patient including using nursing/ems notes. I personally discussed the review of systems and interviewed the patient along with performing a physical examination. In addition, I discussed the patient's condition and treatment options with them. I have also reviewed and agree with the past medical, family and social history unless otherwise noted and personally reviewed the imaging and labs. This note may be a delayed entry. All of the patient's questions were answered. The patient was seen and examined independently and relevant data reviewed by myself. A full chart review was performed. [facility] 07-04-2022 Note Patient: Mio palmer Procedure Summary Date: 07/04/22 Room / Location: [facility] Operating Room Anesthesia Start: 831 Anesthesia Stop: 1122 Procedure: LAPAROSCOPY REPAIR PARAESOPHAGEAL HERNIA INCLUDING FUNDOPLASTY WITH MESH (Abdomen) Diagnosis: Hiatal hernia Incisional hernia (Hiatal hernia [K44.9]) (Incisional hernia [K43.2]) Surgeons: Cam Newman MD Responsible Provider: Dayne Mello MD Anesthesia Type: general anesthesia, regional ASA Status: 2 Anesthesia Type: general anesthesia, regional Vitals Value Taken Time BP 159/87 07/04/22 1124 Temp 97.2 07/04/22 1124 Pulse 70 07/04/22 1124 Resp 18 07/04/22 1124 SpO2 100 07/04/22 1124 Anesthesia Post Evaluation Patient location during evaluation: PACU Patient participation: complete - patient participated Level of consciousness: sleepy but conscious Pain management: adequate Airway patency: patent Dental Injury: no Cardiovascular status: acceptable and hemodynamically stable Respiratory status: acceptable and face mask Hydration status: acceptable Nausea/Vomiting: controlled No notable events documented. Patient can be discharged once all PACU criteria has been met. [facility] 07-04-2022 Note Patient: Mio palmer Procedure Summary Date: 07/04/22 Room / Location: [facility] Operating Room Anesthesia Start: 0832 Anesthesia Stop: 1122 Procedure: LAPAROSCOPY REPAIR PARAESOPHAGEAL HERNIA INCLUDING FUNDOPLASTY WITH MESH (Abdomen) Diagnosis: Hiatal hernia Incisional hernia (Hiatal hernia [K44.9]) (Incisional hernia [K43.2]) Surgeons: Cam Newman MD Responsible Provider: Dayne Mello MD Anesthesia Type: general anesthesia, regional ASA Status: 2 Anesthesia Type: general anesthesia, regional Vitals Value Taken Time BP 159/87 07/04/22 1123 Temp 97.2 07/04/22 1123 Pulse 68 07/04/22 1123 Resp 16 07/04/22 1123 SpO2 100 07/04/22 1123 Anesthesia Post Evaluation Patient location during evaluation: PACU Patient participation: complete - patient participated Level of consciousness: sleepy but conscious Pain management: satisfactory to patient Multimodal analgesia pain management approach Airway patency: patent Two or more strategies used to mitigate risk of obstructive sleep apnea Cardiovascular status: acceptable and hemodynamically stable Respiratory status: acceptable Hydration status: acceptable No notable events documented. [facility]IPS #430 PONV Patient received an inhalational anesthetic (4554F) Patient exhibits three or more risk factors for PONV (4556F) Patient received at leaset 2 prophylactic Rx PONV anti-emtic agents of different classes preop and/or intraop (G9775) MIPS # 424 Perioperative Temperature Management Anesthesia time was 60 minutes or longer (4255F) Anesthesai administered was General (inhalational or TIVA) or Neuraxial block At least one body temperature greater than 95.8F/35.5C achieved within the 30 mins immediately prior to or the 15 minutes immediately following anesthesia end time MIPS #477 Multimodal Pain Management Not emergent case Patientw was administered multimodal pain management (two or more drugs and/or interventions excluding systemic opioids) in the periopeartive period occurring at some time between 6 hours prior to anesthesia start time until discharged from PACU (G2148) [facility]404 Anesthesiology Smoking Abstinence [facility] 404 I completed my handoff to the receiving clinician during which we: 1. Identified the patient 2. Identified the responsible provider 3. Reviewed the pertinent medical history 4. Discussed the surgical course 5. Reviewed intra-op anesthesia management and issues during anesthesia 6. Set expectations for post-procedure period 7. Allowed opportunity for questions and acknowledgement of understanding. [facility] 07-04-2022 Note Airway Date/Time: 07/04/2022 8:48 AM Urgency: scheduled General Information and Staff Patient location during procedure: Procedural Anesthesiologist: Dayne Mello MD Resident/NEURODIAGNOSTIC TECHNICIAN: ZACHARIAH Ballesteros CRNA Performed: NEURODIAGNOSTIC TECHNICIAN Indications and Patient Condition Indications for airway management: anesthesia Sedation level: Asleep Preoxygenated: yes Patient position: sniffing MILS maintained throughout Mask difficulty assessment: 2 - vent by mask + OA or adjuvant +/- NMBA Final Airway Details Final airway type: endotracheal airway Successful airway: ETT Cuffed: yes Successful intubation technique: direct laryngoscopy Facilitating devices/methods: intubating stylet Endotracheal tube insertion site: oral Blade: Braxton Blade size: #4 ETT size (mm): 8.0 Cormack-Lehane Classification: grade I - full view of glottis Placement verified by: chest auscultation and capnometry Measured from: lips ETT to lips (cm): 23 Number of attempts at approach: [address] [facility] 07-04-2022 Note Peripheral Block Time Out: 07/04/2022 8:36 AM Patient location during procedure: Procedural Start time: 07/04/2022 8:36 AM End time: 07/04/2022 8:36 AM Reason for block: at surgeon's request and post-op pain management Staffing Performed: NEURODIAGNOSTIC TECHNICIAN Resident/NEURODIAGNOSTIC TECHNICIAN: ZACHARIAH Ladd CRNA Preanesthetic Checklist Completed: patient identified, IV checked, site marked, risks and benefits discussed, surgical consent, monitors and equipment checked, pre-op evaluation and timeout performed Region: [place] Primary: TAP (Bupivacaine 0.375%/ Epi 1:200,000/ Dex 0.1mg/mL 40ml divided evenly bilateral) Secondary: Upper rectus (Bupivacaine 0.375%/ Epi 1:200,000/ Dex 0.1mg/mL 20ml divided evenly bilateral) Peripheral Block Patient position: supine Prep: ChloraPrep Patient monitoring: heart rate, monitoring analyst, continuous pulse ox and continuous capnometry O2: ETT/LMA Laterality: bilateral Injection technique: single-shot Guidance: ultrasound guided -image retained in chart, tip of the needle identified by ultraound during injection. Needle Needle: 21G X 110 mm Additional Notes 07/04/2022 8:36 AM Assessment Injection assessment: negative aspiration for heme, no paresthesia on injection and incremental injection Heart rate change: no Slow fractionated injection: yes Required Documentation: Relevant anatomy identified (Nerves, Vessels, Muscles), Negative for blood on aspiration, Local anesthetic injected incrementally with intermittent aspiration every 5 mL, Normal resistance with injection, No EKG changes noted, No symptoms of toxicity, Local anesthetic spread visualized around nerves or plane. and Local anesthetic injected without difficulty [facility] 07-04-2022 Note Advanced Laparoscopi c Surgery History and Physical CHIEF COMPLAINT: No chief complaint on file. HPI: Mio Roper is a 72 y.o. male who presents for hiatal hernia repair PMHx: Past Medical History: Diagnosis Date GERD (gastroesophageal reflux disease) Hiatal hernia Hypertension PONV (postoperative nausea and vomiting) Post-operative nausea and vomiting PSHx: Past Surgical History: Procedure Laterality Date ATRIAL ABLATION SURGERY 12/13/2019 Dr. Newman CHOLECYSTECTOMY 2.5 years ago ESOPHAGOGASTRODUODENOSCOPY 03/28/2022 HERNIA REPAIR Left HERNIA REPAIR Bilateral 08/17/2002 Dr. Pennington; new right and recurent left UMBILICAL HERNIA REPAIR 09/14/2019 Dr. Ceron; open w/ mesh PFMHx: No family history on file. ALL: No Known Allergies MEDS: @MEDCMED@ SOCIAL Hx: Social History Socioeconomic History Marital status: Spouse name: Not on file Number of children: Not on file Years of education: Not on file Highest education level: Not on file Occupational History Not on file Tobacco Use Smoking status: Never Smokeless tobacco: Never Vaping Use Vaping Use: Never used Substance and Sexual Activity Alcohol use: Never Drug use: Never Sexual activity: Not on file Other Topics Concern Not on file Social History Narrative Not on file Social Determinants of Health Financial Resource Strain: Not on file Food Insecurity: Not on file Transportation Needs: Not on file Physical Activity: Not on file Stress: Not on file Social Connections: Not on file Intimate Partner Violence: Not on file Housing Stability: Not on file Review of Systems: I personally reviewed the review of systems with the patient. The ROS is negative except for what is listed in HPI. Physical Examination: BP (!) 132/94 Pulse 57 Temp 36.8 ?C (98.3 ?F) (Temporal) Resp 18 Ht 5' 6 (1.676 m) Wt 185 lb (83.9 kg) SpO2 95% BMI 29.86 kg/m? He stands @FLOWAMB(11)@ tall with a weight of @FLOWAMB(14)@ , resulting in a BMI of Body mass index is 29.86 kg/m?.. General: The patient is awake, alert, and oriented, and is in no apparent distress. Normal affect. Head and Neck: Normocephalic and atraumatic. Supple, no thyromegaly. Cardiac: Regular rate and rhythm without evidence of murmur. No obvious carotid bruits. Respiratory: Clear to auscultation bilaterally. Good inspiratory effort. Abdomen: Soft, nt/nd Extremities: Ambulatory without assistance. Neurological: Intact sensation in 4 extremities, no focal deficits notes. Skin: No rashes or lesions noted. Warm and dry. Rectal: Not done. Hernia: no hernias found on exam Assessment and Plan Principal Problem: Hiatal hernia Active Problems: PONV (postoperative nausea and vomiting) Plan: 72 y.o. male who presents for hiatal hernia repair Proceed with hiatal hernia [facility] 07-04-2022 Note Patient: Mio palmer Procedure Information Date/Time: 07/04/22829 Procedure: LAPAROSCOPY REPAIR PARAESOPHAGEAL HERNIA INCLUDING FUNDOPLASTY WITH MESH (Abdomen) Location: [facility] OR Operating Room Surgeons: Cam Newman MD Relevant Problems Anesthesia (+) PONV (postoperative nausea and vomiting) GI (+) Gastroesophageal reflux disease without esophagitis (+) Hiatal hernia Past Medical History: Past Medical History: No date: GERD (gastroesophageal reflux disease) No date: Hiatal hernia No date: Hypertension No date: PONV (postoperative nausea and vomiting) No date: Post-operative nausea and vomiting Past Surgical History: Past Surgical History: 12/13/2019: ATRIAL ABLATION SURGERY Comment: Dr. Newman No date: CHOLECYSTECTOMY Comment: 2.5 years ago 03/28/2022: ESOPHAGOGASTRODUODENOSCOPY No date: HERNIA REPAIR; Left 08/17/2002: HERNIA REPAIR; Bilateral Comment: Dr. Pennington; new right and recurent left 09/14/2019: UMBILICAL HERNIA REPAIR Comment: Dr. Ceron; open w/ mesh Social History: TOBACCO: reports that he has never smoked. He has never used smokeless tobacco. ETOH: reports no history of alcohol use. Social History Substance and Sexual Activity Drug Use Never Family History: No family history on file. Screening: unknown Clinical information reviewed: Tobacco Allergies Meds Med Hx Surg Hx Fam Hx Soc Hx Physical Exam Airway Mallampati: III Comments: Full Face Fung Cardiovascular Comments: Sinus bradycardia Atrial premature complexes Borderline left axis deviation Dental (+) upper dentures Comments: Lower teeth his own Pulmonary Abdominal Anesthesia Plan ASA 2 general anesthesia and regional The patient is not a current smoker. Anesthetic plan and risks discussed with patient. patient is NPO [place] Screening Labs: Lab Results Component Value Date HGB 15.2 12/09/2019 Lab Results Component Value Date NA 137 12/09/2019 K 4.3 12/09/2019 CL 100 12/09/2019 CO2 29 12/09/2019 BUN 17 12/09/2019 CREATININE 0.70 12/09/2019 GLUCOSE 90 12/09/2019 CALCIUM 9.1 12/09/2019 PROT 7.1 12/09/2019 ALKPHOS 73 12/09/2019 AST 36 12/09/2019 No components found for: LVEF, LVEFMODE No echocardiogram results found for the past 14 days 07/04/22 ECG 12-LEAD (Preliminary) This result has not been signed. Information might be incomplete. Impression Sinus bradycardia Atrial premature complexes Borderline left axis deviation [facility] 06-29-2022 Note Patient: Mio palmer Procedure Information Date/Time: 06/27/22 0900 Scheduled providers: Gianna Adams RN Procedure: PAT OPTIMIZATION CALL Location: [facility] Pre-Admit Testing Relevant Problems GI (+) Gastroesophageal reflux disease without esophagitis Past Medical History: Past Medical History: No date: GERD (gastroesophageal reflux disease) No date: Hiatal hernia No date: Hypertension No date: PONV (postoperative nausea and vomiting) No date: Post-operative nausea and vomiting Past Surgical History: Past Surgical History: 12/13/2019: ATRIAL ABLATION SURGERY Comment: Dr. Newman No date: CHOLECYSTECTOMY Comment: 2.5 years ago 03/28/2022: ESOPHAGOGASTRODUODENOSCOPY No date: HERNIA REPAIR; Left 08/17/2002: HERNIA REPAIR; Bilateral Comment: Dr. Pennington; new right and recurent left 09/14/2019: UMBILICAL HERNIA REPAIR Comment: Dr. Ceron; open w/ mesh Social History: TOBACCO: reports that he has never smoked. He has never used smokeless tobacco. ETOH: reports no history of alcohol use. Social History Substance and Sexual Activity Drug Use Never Family History: No family history on file. Screening: unknown Clinical information reviewed: Tobacco Allergies Meds Med Hx Surg Hx Fam Hx Soc Hx Physical Exam Airway Comments: Did not go through pat Cardiovascular Dental Pulmonary Abdominal Anesthesia Plan ASA 2 general anesthesia and regional General ERAS [place] Screening Labs: Lab Results Component Value Date HGB 15.2 12/09/2019 Lab Results Component Value Date NA 137 12/09/2019 K 4.3 12/09/2019 CL 100 12/09/2019 CO2 29 12/09/2019 BUN 17 12/09/2019 CREATININE 0.70 12/09/2019 GLUCOSE 90 12/09/2019 CALCIUM 9.1 12/09/2019 PROT 7.1 12/09/2019 ALKPHOS 73 12/09/2019 AST 36 12/09/2019 No components found for: LVEF, LVEFMODE No echocardiogram results found for the past 14 days No results found for this or any previous visit. [facility] 03-28-2022 History of Present illness Narrative Pt arrived to PACU from OR. Pt ID verified. Monitors applied with alarms on. Vital signs stable. documented in this encounter [employer] Phone: 03-28-2022 Hospital Discharge instructions Eva Swan MD - 03/28/2022 1:19 PM EDT Images from the original note were not included. Discharge Instructions Call your surgeon in 1 to 2 days to schedule a follow-up appointment in 1-2 weeks. OK for diet as tolerated, we recommend taking it slow and starting with soft foods, if you get nauseated try only clear liquids for a few hours. Call your Physician or return to the Emergency Room if you experience: -New or increased pain. -New or increased bleeding. -Nausea & vomiting. -Fever & chills. -Shortness of breath. -Chest pain. -Abdominal distention. documented in this encounter [facility] Work Phone: 03-28-2022 Hospital Discharge instructions Josué Cid RN - 03/28/2022 8:36 AM EDT You may experience some minor side effects following your procedure. Minor complications of esophageal manometry include: Nosebleed Discomfort in the nose and throat Stuffy/runny nose Severe complications from this procedure are rare. If you experience any signs of severe complications, please alert your physician and/or seek emergency medical care. Severe complications of esophageal manometry include: Chest pain Shortness of breath Irregular heart rhythm Aspiration (inhaling stomach contents into the lungs) Fever great than 100.4 F Perforation or tearing of the esophagus Perforation or tearing of a lung (pneumothorax) *Please continue taking your medications as prescribed and resume your previous diet unless instructed otherwise by your physician. *If a new medication has been prescribed, you will either receive a paper prescription or have it sent electronically to your pharmacy. This will be discussed with you by your physician and/or your nurse. 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 Latest Code Status on File Code Status Date Activated Date Inactivated Comments Full Code 12/13/2019 9:50 AM Latest Code Status on File Code Status Date Activated Date Inactivated Comments Full Code 12/13/2019 9:50 AM 12/13/2019 5:52 PM Latest Code Status on File Code Status Date Activated Date Inactivated Comments Full Code 03/28/2022 10:50 AM Full Code 12/13/2019 9:50 AM 12/13/2019 5:52 PM Reason for Referral Status Reason Specialty Diagnoses / Procedures Referre d By Contact Referred To Contact Open Cardiology Diagnoses Pre-op testing Procedures EKG 12 lead Rosie Moody PA-C [address] [place] [address] [address] [place] [address] Discharge Instructions * Instructions* Nidia Sauceda RN - 12/09/2019 Please bring your [email or web address] Surgical Information folder on the day of surgery. Please luis the last dose taken (date and time ) on your Daily Medications List provided in your After Visit Summary. Please bring a photo ID and insurance information TAKE the following medications the morning of your surgery LORAZEPAM (ATIVAN), SERTRALINE (ZOLOFT),METOPROLOL (LOPRESSOR), FAMOTIDINE (PEPCID) You may take your prescription pain medications. You may take Tylenol (Acetaminophen) if needed forpain. No Motrin, Ibuprofen, or Advil 24 hours prior to surgery, or longer if instructed by your surgeon. No Aleve or Naprosyn 3 days prior to surgery, or longer if instructed by your surgeon. NO ASPIRIN OR ASPIRIN CONTAINING PRODUCTS 5 DAYS PRIOR TO SURGERY OR LONGER IF INSTRUCTED BY DR NEWMAN Additional instructions Please shower with an antibacterial soap( example DIAL OR SAFEGUARD) FOLLOW ANY OTHER INSTRUCTIONS THAT DR NEWMAN MAY HAVE GIVEN YOU You will receive a reminder call the day before surgery with your Same Day Surgery arrival time. If you have specific questions, please call your surgeon. * Attachments The following attachments cannot be sent through Care Everywhere. * Cholecystectomy: Post-op (Zambian) documented in this encounter* Instructions* Lexie Cunningham MD - 12/13/2019 Discharge Instructions Call your surgeon in 1 to 2 days to schedule a follow-up appointment in 1-2 weeks. OK to shower. Let soapy water run over incision and pat dry, do not rub incision. OK for activity as tolerated. No lifting over 10 pounds. Wound Care: keep wound clean and dry, reinforce dressing PRN and ice to area for comfort Leave steri-strips in place. May remove steri-strips in 5-7 days. If steri- strips fall off may leave off. Apply dressing for drainage as needed No driving while taking narcotic pain medications. You may take an over the counter stool softener while on narcotics for constipation as needed (colace, miralax, etc). Continue your diet as currently ordered Call your Physician or return to the Emergency Room if you experience: -New or increased pain. -New or increased bleeding. -Nausea & vomitting. -Fever & chills. -Shortness of breath. -Chest pain. -Abdominal distention. documented in this encounter Assessments Diagnosis Pre-op testing Preoperative examination, unspecified Diagnosis Symptomatic cholelithiasis Calculus of gallbladder without mention of cholecystitis or obstruction History of Present Illness * Citlalli Jackson RN - 12/13/2019 3:48 PM EDT 1547 up walked in [facility] diff returned to room DC'd Iv held pressure til bleeding stopped bandiade dressed Discharge information given to the patient. Patient and family verbalized understanding of information. All questions were answered before discharge. Patient ambulated, denies dizzinessor nausea. Tolerating PO fluids and crackers. Vital signs are stable. Patient has changed and is being discharged home in a wheelchair with valuables. * Shani Champagne RN - 12/13/2019 3:05 PM EDT Michelle notified by phone after speaking to Crow that pt not ready to be discharged. He has not ambulated. * Citlalli Jackson RN - 12/13/2019 2:57 PM EDT Went over discharge instrucitons with son in law * Citlalli Jackson RN - 12/13/2019 1:[address] Cunningham into assess far left lap site hematoma and oozing Held pressure for several minutes and replaced steri strips and placed abd binder on with ice * Citlalli Jackson RN - 12/13/2019 1:28 PM EDT Oral airway removed documented in this encounter Additional Source Comments (unrecognized sect ion and content) No Status Records FoundNo Status Records FoundNo Status Records FoundNo Status Records FoundNo Status Records Found INFORMATION SOURCE (unrecogn ized section and content) DATE CREATED AUTHOR AUTHOR'S ORGANIZ ATION 01/01/2020 [facility] DATE CREATED AUTHOR AUTHOR'S ORGANIZ ATION 01/04/2020 [facility] DATE CREATED AUTHOR AUTHOR'S ORGANIZ ATION 04/29/2022 [email or web address] DATE CREATED AUTHOR AUTHOR'S ORGANIZ ATION 07/22/2022 [facility] [email or web address] [facility] [employer] [facility] Scheduled Active and Recently Administ ered Medications (unrecognized section and content) Continuous Medication Order 03/26/2022 03/27/2022 03/28/2022 0.9 % sodium chloride infusion IntraVENous, at 50 mL/hr, CONTINUOUS, Starting on Thu03/28/22 at 1315, Pre-procedure(GI) 1315 (Due) lactated ringers infusion IntraVENous, at 50 mL/hr, CONTINUOUS, Starting on Thu03/28/22 at 1115, Upon admission to sameday - please start iv if patient does not have iv access. Use 500ml NS for patients on dialysis., Pre-op (day of surgery) 1115 (New Bag - Prov ider: Vielka Guaman RN) lactated ringers infusion IntraVENous, at 50 mL/hr, CONTINUOUS, Starting on Thu03/28/22 at 1345, PACU only 1345 (Due) PRN Medication Order 03/26/2022 03/27/2022 03/28/2022 0.9 % sodium chloride bolus 500 mL (5.96 mL/kg), IntraVENous, at 1,000 mL/hr, Administer over 0.5 Hours, PRN, Anti-nausea, Starting on Thu03/28/22 at 1325, PACU only 0.9 % sodium chloride infusion IntraVENous, at 5-250 mL/hr, PRN, if patient receiving piggyback infusions and maintenance fluids are not ordered OR KVO fluids to protect IV site / prevent frequent line interruptions/ long duration, Starting on Thu03/28/22 at 1050, For piggyback infusion, administer at same rate as piggyback for a total of 25 mL. Enter 25 mL into dose field and piggyback rate into rate field of order. If piggyback is infusing at a rate less than 100 mL/hr, enter 25 mL into dose field and 100 mL/hr into rate field of order. For KVO fluids, enter rate of 20 mL/hr or less into rate field of order., Pre-op (day of surgery) ALPRAZolam (NIRAVAM) dissolvable tablet 0.25 mg 0.25 mg, Oral, PRN, Starting on Thu03/28/22 at 1050, Until Discontinued, Anxiety, Pre-op (day of surgery) diphenhydrAMINE (BENADRYL) injection 12.5 mg 12.5 mg, IntraVENous, ONCE PRN, 1 dose, Starting on Thu03/28/22 at 1325, Until Thu03/28/22 at 2359, Itching, PACU only hydrALAZINE (APRESOLINE) injection 5 mg(Linked Group 1) 5 mg, IntraVENous, EVERY 10 MIN PRN, 2 doses, Starting on Thu03/28/22 at 1325, Until Discontinued, High Blood Pressure, for SBP greater than 160 mmHg for 2 consecutive measurements taken from different sites, PRN for SBP > 160 for 2 consecutive measurements, and if one of the following conditions is met: 1) If IV labetolol is ineffective. 2) If HR is under 60. 3) If patient has heart block, COPD or asthma. If both labetalol and hydralazine ineffective, notify anesthesiologist. for use [employer] and, PACU only labetalol (NORMODYNE;TRANDATE) injection 5 mg(Linked Group 1) 5 mg, IntraVENous, EVERY 10 MIN PRN, 2 doses, Starting on Thu03/28/22 at 1325, Until Discontinued, High Blood Pressure, for SBP greater than 160 mmHg for 2 consecutive measurements taken from different sites., PRN for SBP >160 for 2 consecutive measurements, if HR is 60 or greater. If beta bhavna is contraindicated (HR less than 60, heart block, COPD or asthma) use hydralazine IV order. for use [employer] and, PACU only lidocaine 1 % injection 1 mL 1 mL, IntraDERmal, ONCE PRN, 1 dose, Starting on Thu03/28/22 at 1050, Until Thu03/28/22 at 2359, IV start, Pre-op (day of surgery) ondansetron (ZOFRAN) injection 4 mg 4 mg, IntraVENous, ONCE PRN, 1 dose, Starting on Thu03/28/22 at 1325, Until Thu03/28/22 at 2359, Nausea, Initial antiemetic therapy., PACU only sodium chloride flush 0.9 % injection 5-40 mL 5-40 mL, IntraVENous, PRN, Starting on Thu03/28/22 at 1050, Until Discontinued, Line Care, After every IV line use, For Line Patency: Peripheral IV = 5 mL; Midline or Central Line = 10 mL/lumen. If following IV push medication, administer flush at same rate as the IV push. Flush volume is determined by type of infusion therapy being given. For non-viscous solutions use: Peripheral IV = 5 mL Midline or Central Line = 10 mL/lumen For viscous solutions (i.e. blood components, parenteral nutrition, contrast media, or after obtaining blood sample) use: Peripheral IV = 10 mL Midline or Central Line = 20 mL/lumen, Pre-op (day of surgery) sodium chloride flush 0.9 % injection 5-40 mL 5-40 mL, IntraVENous, PRN, Starting on Thu03/28/22 at 1325, Until Discontinued, Line Care, After every IV line use, For Line Patency: Peripheral IV = 5 mL; Midline or Central Line = 10 mL/lumen. If following IV push medication, administer flush at same rate as the IV push. Flush volume is determined by type of infusion therapy being given. For non-viscous solutions use: Peripheral IV = 5 mL Midline or Central Line = 10 mL/lumen For viscous solutions (i.e. blood components, parenteral nutrition, contrast media, or after obtaining blood sample) use: Peripheral IV = 10 mL Midline or Central Line = 20 mL/lumen, PACU only Linked Groups Order Group 1: labetalol (NORMODYNE;TRANDATE) injection 5 mgJump to med 5 mg, IntraVENous, EVERY 10 MIN PRN, 2 doses, Starting on Thu03/28/22 at 1325, Until Discontinued, High Blood Pressure, for SBP greater than 160 mmHg for 2 consecutive measurements taken from different sites.
PRN for SBP >160 for 2 consecutive measurements, if HR is 60 or greater. If beta bhavna is contraindicated (HR less than 60, heart block, COPD or asthma) use hydralazine IV order. for use and
PACU only Or hydrALAZINE (APRESOLINE) injection 5 mgJump to med 5 mg, IntraVENous, EVERY 10 MIN PRN, 2 doses, Starting on Thu03/28/22 at 1325, Until Discontinued, High Blood Pressure, for SBP greater than 160 mmHg for 2 consecutive measurements taken from different sites
PRN for SBP > 160 for 2 consecutive measurements, and if one of the following conditions is met: 1) If IV labetolol is ineffective. 2) If HR is under 60. 3) If patient has heart block, COPD or asthma. If both labetalol and hydralazine ineffective, notify anesthesiologist. for use and
PACU only FOR RECORDS PERTAINING TO PATIENTS WHO ARE OR HAVE BEEN ENROLLED IN A CHEMICAL DEPENDENCY/SUBSTANCEABUSE PROGRAM, SOME INFORMATION MAY BE OMITTED. This clinical summary was aggregated from multiple sources. Caution should be exercised in using it in the provision of clinical care. This summary normalizes information from multiple sources, and as a consequence, information in this document may materially change the coding, format and clinical context of patient data. In addition, data may be omitted in some cases. CLINICAL DECISIONS SHOULD BE BASED ON THE PRIMARY CLINICAL RECORDS. [email or web address] provides no warranty or guarantee of the accuracy or completeness of information in this document.
--- OUTSIDE RECORDS SUMMARY | 2023-08-11 12:43 | XMS RPT_ITS | CCD ---
Author Name Unknown Address [address] [place] [address] Organization [facility] Care Team Providers Care Cook Morning Name Role Phone Unavailable Primary Care Provider [...] Onset: 03-28-2022 Other aftercare (2 sources) Other longshore equipment operator (current) drug therapy; Translations: [Other longshore equipment operator (current) drug therapy] Onset: 03-28-2022 Episodic Other [...] 97 % Cam Newman MD Work Phone: [facility] 03-28-2022 14:15-0400 Diastolic blood pressure 88 mm[Hg] Cam Newman MD Work Phone: [facility] 03-28-2022 14:15-0400 Heart rate 68 /min Cam Newman MD Work Phone: [facility] 03-28-2022 14:15-0400 Respiratory rate 16 /min Cam Newman MD Work Phone: [facility] 03-28-2022 14:15-0400 Systolic blood pressure 140 mm[Hg] Cam Newman MD Work Phone: [facility] 03-28-2022 13:28-0400 Body temperature 98.49 [degF] Cam Newman MD Work Phone: [facility] 03-28-2022 11:02-0400 Body height 167.6 cm Cam Newman MD Work Phone: [facility] 03-28-2022 11:02-0400 Body mass index (BMI) [Ratio] 29.86 kg/m2 Cam Newman MD Work Phone: [facility] 03-28-2022 11:02-0400 Body weight 83.92 kg Cam Newman MD Work Phone: [facility] 03-28-2022 08:30-0400 Body temperature 98.2 [degF] Cam Newman MD Work Phone: [facility] 03-28-2022 08:30-0400 Diastolic blood pressure 87 mm[Hg] Cam Newman MD Work Phone: [facility] 03-28-2022 08:30-0400 Heart rate 55 /min Cam Newman MD Work Phone: [facility] 03-28-2022 08:30-0400 Respiratory rate 18 /min Cam Newman MD Work Phone: [facility] 03-28-2022 08:30-0400 SaO2% (BldA) [Mass fraction] 98 % Cam Newman MD Work Phone: [facility] 03-28-2022 08:30-0400 Systolic blood pressure 143 mm[Hg] Cam Newman MD Work Phone: [facility] 12-13-2019 15:15-0400 BP Diastolic 93 mm[Hg] [place], [place] 12-13-2019 15:15-0400 BP Systolic 147 mm[Hg] [facility] , [place] 12-13-2019 15:15-0400 Pulse (Heart Rate) 56 /min [place], [place] 12-13-2019 15:15-0400 Pulse Oximetry 98 % [place] 12-13-2019 15:15-0400 Respiratory Rate 16 /min [facility] 12-13-2019 13:13-0400 Body Temperature 97.39 [degF] [facility] 12-13-2019 09:50-0400 BMI (Body Mass Index) 29.05 kg/m2 [facility] 12-13-2019 09:50-0400 Body weight 81.65 kg [facility] , [place] 12-13-2019 09:50-0400 Height 167.6 cm [place] 12-09-2019 10:54-0400 Body Temperature 99.39 [degF] [place], [place] 12-09-2019 10:54-0400 BP Diastolic 77 mm[Hg] [place] 12-09-2019 10:54-0400 BP Systolic 136 mm[Hg] [place] 12-09-2019 10:54-0400 Pulse (Heart Rate) 55 /min [place] 12-09-2019 10:54-0400 Pulse Oximetry 97 % [place] 12-09-2019 10:54-0400 Respiratory Rate 20 /min [place], [place] 12-09-2019 10:54-0400 BMI (Body Mass Index) 31.05 kg/m2 [place] 12-09-2019 10:54-0400 Body weight 87.27 kg [place] 12-09-2019 10:54-0400 Height 167.6 cm [place] Encounters Encounter Date Encounter Type Care Provider Facility Start: 07-22-2022 End: 07-22-2022 ambulatory [facility] Start: 07-05-2022 End: 07-06-2022 ambulatory [facility] Start: 07-04-2022 End: 07-05-2022 ambulatory [facility] Start: 06-27-2022 End: 06-27-2022 ambulatory [facility] Start: 03-28-2022 End: 03-28-2022 ambulatory [facility] Start: 03-28-2022 End: 03-28-2022 Subsequent [...] Newman MD [address] [place], [place] [id number] [facility] [place] [facility] Start: 03-28-2022 Subsequent hospital visit by physician 03/28/2022 Hospital Encounter General Surgery Cam Newman MD [address] [place], [place] [id number] [facility] Start: 03-20-2022 Influenza vaccination Flu vaccine (# 1) [facility] Start: 03-20-2020 Influenza vaccination Flu vacc ine (Season Ended) [place] Start: 12-27-2019 End: 12-27-2019 Office Visit 12/27/2019 Office Visit Advanced Laparoscopic Surgery Rosie Moody PA-C [address] [place] [address] [phone] [facility] [place] [facility] Start: 12-13-2019 Hospital Encounter 12/13/2019 Hospital Encounter General Surgery Cam Newman MD [address] [place], [place] [id number] [facility] Start: 2017 Pneumococcal 65+ yea rs Vaccine (1 - PCV) Pneumococcal 65+ years Vaccine (1 - PCV) [facility] Start: 2017 Pneumococcal 65+ yea rs Vaccine (1 of 1 - PPSV23) Pneumococcal 65+ years Vaccine (1 of 1 - PPSV23) [place] Start: 2002 Screening for malign ant neoplasm of colon Colon cancer screen colonoscopy [place] Start: 2002 Shingles Vaccine (1 of 2) Tsai gles Vaccine (1 of 2) [facility] Start: 1997 Screening for malign ant neoplasm of colon [facility] Start: 1992 Diabetes screen Diabetes screen [place], [place] Start: 1992 Lipid panel [facility] Start: 1971 DTaP/Tdap/Td vaccine (1 - Tdap) DTaP/Tdap/Td vaccine (1 - Tdap) [facility] Start: 1970 Hepatitis C screening Hepatitis C sc fabio [facility] Start: 1964 Depression Screen Depression Screen [facility] Start: 1952 COVID-19 Vaccine (#1) COVID-19 Vacci ne (#1) [facility] Start: 1952 Hepatitis C [facility] [place] End: 12-13-2019 Blood glucose - POCT Blood glucose - POCT Point of Care Testing STAT One Time for 1 Occurrences starting 12/13/2019 until 12/13/2019 [place] Payers Date Payer Category Payer Unknown [id number] 1950 Unknown [id number] 1950 Unknown [id number] 1950 Unknown [id number] Self-pay Unknown [id number] Social History Date Type Detail Facility Start: 11-04-2019 End: 11-10-2019 Tobacco smoking status NHIS Never smoker [place] Start: 11-10-2019 End: 03-28-2022 Alcohol intake Lifetime non-drinker (finding) [place] Start: 11-04-2019 History SDOH Alcohol Frequency 1 [place] Start: 1950 Sex Assigned At Not on file [place] Exposure to SARS-CoV -2 (event) Unable to assess [place] Start: 11-04-2019 Tobacco use and exposure Smokeless tobacco non-user [facility] Work Phone: Start: 03-18-2022 End: 03-28-2022 Exposure to SARS-CoV-2 (event) Not sure [facility] Clinical Notes 03-28-2022 to 07-05-2022 Kathleen Abel [...] Your Medications These medications were sent to [facility] [address] [place] [id number] Hours: Thursday to Thursday 10 am to 6 pm ondansetron 4 MG tablet oxyCODONE-acetaminophen 5-325 MG tablet DIET: Adult diet Clear liquid ACTIVITY: No heavy lifting. __ COMPLEXITY OF FOLLOW UP: [x] Moderate Complexity: follow up within 7-14 calendar days (05895) [] Severe Complexity: follow up within 7 calendar days (57364) FOLLOW UP TESTING, PENDING RESULTS OR REFERRALS AT TRANSITIONAL CARE VISIT: [] Yes [x] No PENDING STUDIES: na DISPOSITION: Home FACILITY/HOME CARE AGENCY NAME: n/a Follow up with Cam Newman MD [address] [facility] 240 [facility] [address] Schedule an appointment as soon as possible [...] SIGNED: Kathie Morgan MD 07/05/2022, 4:22 PM [facility] 07-05-2022 Note GENERAL SURGERY Prog ress [...] myself. A full chart review was performed. [facility] 07-04-2022 Note Patient: Mio palmer Procedure Summary Date: 07/04/22 Room / Location: [facility] Operating Room Anesthesia Start: 831 Anesthesia Stop: [...] once all PACU criteria has been met. [facility] 07-04-2022 Note Patient: Mio palmer Procedure Summary Date: 07/04/22 Room / Location: [facility] Operating Room Anesthesia Start: 0832 Anesthesia Stop: [...] start time until discharged from PACU ([id number]) [facility] Anesthesiology Smoking Abstinence [facility] 404 I completed my handoff to the receiving clinician during which we: 1. Identified the patient 2. Identified the responsible provider 3. Reviewed the pertinent medical history 4. Discussed the surgical course 5. Reviewed intra-op anesthesia management and issues during anesthesia 6. Set expectations for post-procedure period 7. Allowed opportunity for questions and acknowledgement of understanding. [facility] 07-04-2022 Note Airway Date/Time: 07/04/2022 8:48 AM Urgency: scheduled General Information and Staff Patient location during procedure: Procedural Anesthesiologist: Dayne Mello MD Resident/RETAIL STOCK CLERK: ZACHARIAH Ballesteros CRNA Performed: RETAIL STOCK CLERK Indications and Patient Condition Indications for airway [...] 23 Number of attempts at approach: 1 [facility] 07-04-2022 Note Peripheral Block Time Out: 07/04/2022 8:36 AM Patient location during procedure: Procedural Start time: 07/04/2022 8:36 AM End time: 07/04/2022 8:36 AM Reason for block: at surgeon's request and post-op pain management Staffing Performed: RETAIL STOCK CLERK Resident/RETAIL STOCK CLERK: ZACHARIAH Ladd CRNA Preanesthetic Checklist Completed: patient [...] supine Prep: ChloraPrep Patient monitoring: heart rate, senior microstrategy developer, continuous pulse ox and continuous capnometry O2: [...] plane. and Local anesthetic injected without difficulty [facility] 07-04-2022 Note Advanced Laparoscopi c Surgery [...] hiatal hernia repair Proceed with hiatal hernia [facility] 07-04-2022 Note Patient: Mio palmer Procedure Information Date/Time: 07/04/22829 Procedure: LAPAROSCOPY REPAIR PARAESOPHAGEAL HERNIA INCLUDING FUNDOPLASTY WITH MESH (Abdomen) Location: [facility] OR Operating Room Surgeons: Cam Newman MD [...] Atrial premature complexes Borderline left axis deviation [facility] 06-29-2022 Note Patient: Mio palmer Procedure Information Date/Time: 06/27/22 0900 Scheduled providers: Gianna Adams RN Procedure: PAT OPTIMIZATION CALL Location: [facility] Pre-Admit Testing Relevant Problems GI (+) [...] found for this or any previous visit. [facility] 03-28-2022 History of Present illness Narrative Pt arrived to PACU from OR. Pt ID verified. Monitors applied with alarms on. Vital signs stable. documented in this encounter [employer] Phone: 03-28-2022 Hospital Discharge instructions Eva Swan [...] FoundDocuments on File Type Date Recorded Patient Pediatric Surgeon Expl anation Advance Directives and Living Will Power of Laboratory Animal Caretaker Documents on File Type Date Recorded Patient Pediatric Surgeon Expl anation Advance Directives and Living Will Power of Laboratory Animal Caretaker Latest Code Status on File Code Status [...] Procedures EKG 12 lead Rosie Moody PA-C [address] [place] [address] [address] [place] [address] Discharge Instructions * Instructions* Nidia Sauceda RN - 12/09/2019 Please bring your con[facility] Surgical Information folder on the day of [...] 3:48 PM EDT 1547 up walked [facility] diff returned to room DC'd Iv held [...] DATE CREATED AUTHOR AUTHOR'S ORGANIZ ATION 01/01/2020 [facility] DATE CREATED AUTHOR AUTHOR'S ORGANIZ ATION 01/04/2020 [facility] DATE CREATED AUTHOR AUTHOR'S ORGANIZ ATION 04/29/2022 [facility] DATE CREATED AUTHOR AUTHOR'S ORGANIZ ATION 07/22/2022 [facility] Scheduled Active and Recently [...] BE BASED ON THE PRIMARY CLINICAL RECORDS. [employer] provides no warranty or guarantee of the accuracy or completeness of information in this document.
[2023-08-11 12:56] VITALS: BMI 29.9
--- NOTE | 2023-08-11 13:05 | PCM.HP.STD ---
HPI - General General Date of Admission: 08/11/23 Date of Service: 08/11/23 Chief Complaint: Slipped, fall on the ice and hit the left hip. HPI Narrative MILENA LOPES, is a 73 M gentleman was brought to ED by EMS after he is slipped on the ice. Patient immediately went out for work but then he fell down. As per EMS they found him laying on the right lateral side with internal rotation of right leg. Patient complains of severe pain constant pain, 9/10 in right groin. Patient is unable to get up from the ground. Denies injury to head or neck or back. No fever or chills. No loss of consciousness. In ED, patient blood pressure is 147/96 heart rate 63. Patient has history of hypertension and he states he takes medication of his . In ED left hip pelvis x-ray shows impacted left intertrochanteric fracture. Chest x-ray no acute abnormality. Twelve-lead EKG normal sinus rhythm heart rate 69 bpm with LAD. QTc 437 ms. [facility] Medical History Anxiety Hypertension Home Medications lorazepam 1 mg tablet 0.5 - 1 mg PO BID ANXIETY 05/09/20 [History Last Taken 08/11/23] metoprolol tartrate 25 mg tablet 25 mg PO BID BLOOD PRESSURE 05/09/20 [History Last Taken 08/11/23] sertraline 100 mg tablet 100 mg PO DAILY STRESS 05/09/20 [History Last Taken 08/11/23] garlic extract 1 tab PO DAILY 08/11/23 [History Last Taken 08/11/23] multivitamin (Daily Multi-Vitamin tablet) 1 - 2 tab PO DAILY VITAMIN 08/11/23 [History Last Taken 08/10/23] Allergy/AdvReac Type Severity Reaction Status Date / Time No Known Allergies Allergy Verified 08/11/23 09:24 Family History no significant family his Social History Smoking Status: Never smoker ROS ROS Narrative Constitutional: Reports fatigue and weakness. No fever. HEENT: Reports systems reviewed and no addt'l complaints, except as documented Respiratory/Chest: No acute shortness of breath or respiratory distress or wheezing. Denies a smoking or chronic lung disease. CVS: Denies history of coronary artery disease/CO or arrhythmia. Gastrointestinal: Denies coffee ground emesis, hematemesis or vomiting Genitourinary: Denies burning urination or new urinary tract symptoms Musculoskeletal: As described in HPI. Neurologic: Denies seizure-like symptoms. skin: No ulcer. No rash Endocrinology: Reports systems reviewed and no addt'l complaints, except as documented Hematologic/Lymphatic: Reports systems reviewed and no addt'l complaints, except as documented Rest 14 ROS are negative except as mentioned in HPI Vital Signs Vital Signs Vital Signs: 08/11/23 09:20 08/11/23 09:37 08/11/23 12:08 Temperature 98.2 F Temperature Source Temporal Pulse Rate 63 65 Respiratory Rate 18 18 Respiratory Effort Normal Blood Pressure 147/96 H 132/82 H Blood Pressure Mean 113 98 Pulse Ox 99 99 Oxygen Delivery Method Room Air Room Air Weight Weight: 209 lb 7.026 oz Body Mass Index (BMI) 33.7 Physical Exam Narrative General: Alert, Oriented x3, Cooperative HEENT: Atraumatic, PERRLA, EOMI, Normocephalic Oral: Oral mucosa dry. No Gingival or Mucosal Lesions/ Ulcerations Neck: Supple, No JVD, Negative Carotid Bruits Lungs: Air entry diminished in bilateral lung bases. No crepitation/rhonchi Cardiovascular: Regular rate, Regular Rhythm, Normal S1, Normal S2, No murmurs Abdomen: Bowel Sounds Present, Soft, Non Tender, Non-Distended : No renal angle tenderness. No suprapubic tenderness. Extremities: No edema, Capillary Refill Less than 3 Seconds Skin: No rashes, No breakdown Musculoskeletal: Tenderness present over left groin. LLE flexed and externally rotated. No Tenderness to Palpation of other joints or Extremities Neurological: Cranial nerves II-XII grossly intact, DTR 2+/4. No acute focal neurological deficit. Psych/Mental Status: Normal Affect, Appropriate. Results Lab / Micro Data 08/11/23 11:00 08/11/23 11:00 Labs: Laboratory Results - last 24 hr 08/11/23 11:00: WBC 13.8 H, RBC 5.24, Hgb 15.6, Hct 44.5, MCV 84.9, MCH 29.8, MCHC 35.1, RDW Std Deviation 36.7, RDW Coeff of Joesph 12.0, Plt Count 156, MPV 9.7, Immature Gran % (Auto) 0.700, Neut % (Auto) 85.8 H, Lymph % (Auto) 8.2 L, Bureau % (Auto) 4.8, Eos % (Auto) 0.3, Baso % (Auto) 0.2, Absolute Neuts (auto) 11.9 H, Absolute Lymphs (auto) 1.14, Nucleated RBC % 0, PT 14.5, INR 1.1, APTT 29.1, Sodium 138, Potassium 3.7, Chloride 106, Carbon Dioxide 26.0, Anion Gap 6, BUN 17, Creatinine 0.84, Estim Creat Clear Calc 87.03, Est GFR (MDRD) Af Amer 116, Est GFR (MDRD) Non-Af 96, BUN/Creatinine Ratio 20.3 H, Glucose 106, Calcium 9.1, Magnesium 2.0 Imagaing Radiology Impression Hip/Pelvis X-Ray 08/11/23 10:18 IMPRESSION: Impacted left intertrochanteric fracture. Electronically Signed: Denis Yarbrough MD at 11:17 EST , Knee X-Ray 08/11/23 10:21 IMPRESSION: Degenerative arthrosis. Electronically Signed: Denis Yarbrough MD at 11:28 EST , Chest X-Ray 08/11/23 10:45 IMPRESSION: No acute abnormality is seen. Electronically Signed: Denis Yarbrough MD at 11:14 EST , Assessment & Plan Assessment/Plan (1) Closed intertrochanteric fracture of left hip: QUALIFIERS: Encounter type: initial encounter Fracture alignment: nondisplaced Qualified Code(s): S72.145A - Nondisplaced intertrochanteric fracture of left femur, initial encounter for closed fracture PLAN: Plan This 72-year-old gentleman being brought by EMS after he had slipped on ice resulting into left hip intertrochanteric fracture. 1. Left impacted intertrochanteric fracture after fall: Patient is being admitted in [facility] floor with telemetry. Labs reviewed. Mild leukocytosis probably reactive after fall from inflammation/pain. Orthopedic surgery Dr. Olman Oliver is consulted. Electrolytes in normal range. Glucose 106. Serum magnesium in normal range. Patient has good preoperative exercise capacity and is working actively. Patient does not have chronic heart or pulmonary conditions. No history of smoking or alcohol drink. Overall I think patient is mild to moderate perioperative risk for left hip hip surgery. 2. Hypertension: Patient on metoprolol 25 mg twice daily. Blood pressure elevated therefore lisinopril 5 mg once daily started. Twelve-lead EKG shows normal sinus rhythm. 3. Mild anxiety and depression: Patient on lorazepam and sertraline at home, continued. DVT prophylaxis moderate risk: Heparin 5000 units subcutaneous every 8 hourly. Hold dog hair clipper dose tomorrow morning prior to surgery. Living will/advanced directive/end of life care: Patient does have living will or advanced directive. He is power of associate attorney for all this two elder sons. After discussion of benefits/risks procedures involved with full code, DNR CC arrest and DNR CC, the patient opted for full code but does not want to be dependent on ventilator for long time. Patient does want artificial life support including intubation, tube feed, ventilator and/chest compression, central venous catheter, vasopressor and DC shock if needed Total time spent in [id number] encounter in discussion of advanced directive 17 minutes. Laboratory Results 08/11/23 11:00: WBC 13.8 H, RBC 5.24, Hgb 15.6, Hct 44.5, MCV 84.9, MCH 29.8, MCHC 35.1, RDW Std Deviation 36.7, RDW Coeff of Joesph 12.0, Plt Count 156, MPV 9.7, Immature Gran % (Auto) 0.700, Neut % (Auto) 85.8 H, Lymph % (Auto) 8.2 L, Bureau % (Auto) 4.8, Eos % (Auto) 0.3, Baso % (Auto) 0.2, Absolute Neuts (auto) 11.9 H, Absolute Lymphs (auto) 1.14, Nucleated RBC % 0, PT 14.5, INR 1.1, APTT 29.1, Sodium 138, Potassium 3.7, Chloride 106, Carbon Dioxide 26.0, Anion Gap 6, BUN 17, Creatinine 0.84, Estim Creat Clear Calc 87.03, Est GFR (MDRD) Af Amer 116, Est GFR (MDRD) Non-Af 96, BUN/Creatinine Ratio 20.3 H, Glucose 106, Calcium 9.1, Magnesium 2.0 08/11/23 11:15: Blood Type O POSITIVE, Antibody Screen NEGATIVE Clinical Impression(s) from Imaging Studies Hip/Pelvis X-Ray 08/11/23 10:18 IMPRESSION: Impacted left intertrochanteric fracture. Knee X-Ray 08/11/23 10:21 IMPRESSION: Degenerative arthrosis. Electronically Signed: Denis Yarbrough MD at 11:28 EST , Chest X-Ray 08/11/23 10:45 IMPRESSION: No acute abnormality is seen. Electronically Signed: Denis Yarbrough MD at 11:14 EST , Charges/Coding Visit Charges Inpatient E&M: 33503 Init Hosp L3 Procedures Hospitalists Procedures: 64912 Advncd Care Plan 30 Min
[2023-08-11] MEDS: Morphine 2 MG/ML Syringe IV ×3 (13:20→22:12)
[2023-08-11] MEDS: Lactated Ringers 1,000 ML 100 ML IV (13:21)
[2023-08-11] MEDS: 0.9% Saline Lock 10 ML Syringe IV (13:21)
[2023-08-11] MEDS: Acetaminophen 500 MG Tablet 1000 MG PO ×2 (13:27→22:10)
[2023-08-11 13:28] VITALS: BP 155/89; PULSE 64; RESP 18; TEMP 37.4; O2SAT 95
[2023-08-11] MEDS: Heparin Injection (Vial) 5,000 UNIT/ML VIAL 5000 UNIT SC ×2 (14:48→22:12)
[2023-08-11] MEDS: Lisinopril 5 MG Tablet PO (15:51)
[2023-08-11] MEDS: Sertraline 100 MG Tablet PO (15:51)
--- NOTE | 2023-08-11 17:04 | CONS.ORTHO ---
HPI Consult Data Date of Consult: 08/11/23 HPI Narrative HPI Narrative: MILENA LOPES, is a 73 M who presents with left hip intertrochanteric fracture. He was admitted today and I was consulted. I saw the patient on the MedSur floor. 73-year-old gentleman otherwise healthy was going to work today. He slipped and fell on the ice and injured his left hip. He has pain around the left hip area. He denies any other areas of pain. He has longstanding chronic knee pain issues but denies any other injuries. He denies any head injury. He is unable to move his left lower extremity at the hip. Prior to this injury he was able to ambulate without any ambulatory aid. [facility] Medical History Anxiety Hypertension Home Medications lorazepam 1 mg tablet 0.5 - 1 mg PO BID ANXIETY 05/09/20 [History Last Taken 08/11/23] metoprolol tartrate 25 mg tablet 25 mg PO BID BLOOD PRESSURE 05/09/20 [History Last Taken 08/11/23] sertraline 100 mg tablet 100 mg PO DAILY STRESS 05/09/20 [History Last Taken 08/11/23] garlic extract 1 tab PO DAILY 08/11/23 [History Last Taken 08/11/23] multivitamin (Daily Multi-Vitamin tablet) 1 - 2 tab PO DAILY VITAMIN 08/11/23 [History Last Taken 08/10/23] Allergy/AdvReac Type Severity Reaction Status Date / Time No Known Allergies Allergy Verified 08/11/23 09:24 Family History no significant family his Social History Smoking Status: Never smoker Vital Signs Vital Signs Vital Signs: 08/11/23 09:20 08/11/23 09:37 08/11/23 12:08 Temperature 98.2 F Temperature Source Temporal Pulse Rate 63 65 Respiratory Rate 18 18 Respiratory Effort Normal Blood Pressure 147/96 H 132/82 H Blood Pressure Mean 113 98 Blood Pressure Source Blood Pressure Position Blood Pressure Location Pulse Ox 99 99 Oxygen Delivery Method Room Air Room Air 08/11/23 13:28 Temperature 99.4 F H Temperature Source Oral Pulse Rate 64 Respiratory Rate 18 Respiratory Effort Blood Pressure 155/89 H Blood Pressure Mean 111 Blood Pressure Source Monitor Blood Pressure Position Semi-Fowlers Blood Pressure Location Left Arm Pulse Ox 95 Oxygen Delivery Method Room Air Weight Weight: 185 lb 10.067 oz Body Mass Index (BMI) 29.9 Physical Exam Narrative Exam of the left hip shows no obvious skin break. While bruise noticed on the lateral aspect of the left leg. No tenderness around the left knee or distal femur. Left lower extremity is externally rotated. Logrolling positive. Severe pain around the left hip anteriorly and laterally. Distal neurovascular exam is intact. Examination of the right lower and bilateral upper extremities show no obvious bony injuries. Lab / Micro Data 08/11/23 11:00 08/11/23 11:00 Labs: Laboratory Results - last 24 hr 08/11/23 11:00: WBC 13.8 H, RBC 5.24, Hgb 15.6, Hct 44.5, MCV 84.9, MCH 29.8, MCHC 35.1, RDW Std Deviation 36.7, RDW Coeff of Joesph 12.0, Plt Count 156, MPV 9.7, Immature Gran % (Auto) 0.700, Neut % (Auto) 85.8 H, Lymph % (Auto) 8.2 L, [place] % (Auto) 4.8, Eos % (Auto) 0.3, Baso % (Auto) 0.2, Absolute Neuts (auto) 11.9 H, Absolute Lymphs (auto) 1.14, Nucleated RBC % 0, PT 14.5, INR 1.1, APTT 29.1, Sodium 138, Potassium 3.7, Chloride 106, Carbon Dioxide 26.0, Anion Gap 6, BUN 17, Creatinine 0.84, Estim Creat Clear Calc 87.03, Est GFR (MDRD) Af Amer 116, Est GFR (MDRD) Non-Af 96, BUN/Creatinine Ratio 20.3 H, Glucose 106, Calcium 9.1, Magnesium 2.0 08/11/23 11:15: Blood Type O POSITIVE, Antibody Screen NEGATIVE Imagaing Radiology Impression Hip/Pelvis X-Ray 08/11/23 10:18 IMPRESSION: Impacted left intertrochanteric fracture. Electronically Signed: Denis Yarbrough MD at 11:17 EST , Knee X-Ray 08/11/23 10:21 IMPRESSION: Degenerative arthrosis. Electronically Signed: Denis Yarbrough MD at 11:28 EST , Chest X-Ray 08/11/23 10:45 IMPRESSION: No acute abnormality is seen. Electronically Signed: Denis Yarbrough MD at 11:14 EST , Assessment & Plan Assessment/Plan (1) Closed intertrochanteric fracture of left hip: QUALIFIERS: Encounter type: initial encounter Fracture alignment: nondisplaced Qualified Code(s): S72.145A - Nondisplaced intertrochanteric fracture of left femur, initial encounter for closed fracture PLAN: Plan I reviewed the x-rays obtained in the ER. Patient has a left intertrochanteric versus basicervical femoral neck fracture with displacement. I explained to the patient treatment options. Surgically treatment would give the best opportunity for early as possible return to ambulation and reducing recumbency complications. Left intertrochanteric femur open reduction internal fixation with cephalomedullary nailing was discussed in detail. All risk benefits and alternatives were discussed. The risks include but are not limited to infection, bleeding, injury to nerves and vessels, hardware failure, nonunion, malunion, need for further surgeries, persistent pain, DVT, pulmonary embolism, cardiopulmonary event. Patient understands and agrees to proceed with surgery. Patient will be n.p.o. after midnight tonight and will be scheduled as an add-on in the OR tomorrow. Patient was in agreement. Charges/Coding Visit Charges Inpatient E&M: 13202 Init Hosp L2
[2023-08-11 20:00] VITALS: BP 136/90; PULSE 78; RESP 16; TEMP 36.8; O2SAT 97
[2023-08-11 22:10] VITALS: PULSE 78
[2023-08-11] MEDS: Metoprolol Tartrate 25 MG Tablet PO (22:10)
[2023-08-12] VITALS (17 sets, daily range): BP systolic 93–124; BP diastolic 55–88; PULSE 64–78; RESP 14–16; TEMP 36.6–37.6; O2SAT 91–100; BMI 29.8; BMI 29.9
[2023-08-12] MEDS: Morphine 2 MG/ML Syringe IV ×2 (04:27→08:36)
[2023-08-12 06:37] LABS: Absolute Lymphocyte Count 1.03 X10^3/uL (0.83-4.51); Absolute Neutrophil Count 5.2 X10^3/uL (2.0-7.7); Basophil# 0.03 X10^3/uL; Basophil% 0.4 % (0-1); Eosinophil# 0.33 X10^3/uL; Eosinophils% 4.6 % (0-5); Hematocrit 41.6 % (40-54); Hemoglobin 14.1 g/dL (13.0-16.5); Lymphocyte # 1.03 X10^3/ul (0.83-4.51); Lymphocyte % 14.4 % (19-41); Mean Corp Hgb Conc 33.9 g/dL (32-36); Mean Corpuscular Hgb 28.8 pg (27.0-32.0); Mean Corpuscular Volume 84.9 fL (80-94); Monocyte# 0.51 X10^3/uL; Monocyte% 7.2 % (0-10); NRBC Flagged by Analyzer 0 % (0-5); Neutrophil # 5.21 X10^3/uL (2.7-7.7); Neutrophil % 73.1 % (47-70); Platelet Count 115 K/mm3 (150-450); RBC Distribution Width CV 12.3 % (11.6-14.6); RBC Distribution Width SD 37.8 fl (35.1-43.9); White Blood Count 7.1 K/mm3 (4.4-11.0)
[2023-08-12 07:04] LABS: Anion Gap 1 (5-15); BUN 13 mg/dL (7-18); Calcium,Total 8.5 mg/dL (8.5-10.1); Chloride 108 mmol/L (98-107); Creatinine, Serum 0.76 mg/dL (0.70-1.30); EST Glomerular Filtration Rate 107 mL/min (>60); Est Glom Filt Rate - Afr Amer 129 mL/min (>60); Glucose 118 mg/dL (74-106); Potassium 3.3 mmol/L (3.5-5.1); Sodium Level 137 mmol/L (136-145)
[2023-08-12] MEDS: Metoprolol Tartrate 25 MG Tablet PO ×2 (08:37→21:01)
--- NOTE | 2023-08-12 10:20 | CASEMGMT ---
Addendum entered by Cecille Newman 08/12/23 16:55: 1530: Pt still off the floor for surgery. Will see pt tomorrow if pt does not return. Original Note: RN CM to room to do assessment, pt off floor at this time for surgery.
--- NOTE | 2023-08-12 10:30 | NURSING ---
Pt to OR via bed
[2023-08-12] MEDS: Lactated Ringers 1,000 ML 15 ML IV ×2 (10:50→14:29)
--- NOTE | 2023-08-12 11:29 | HP.PCM_ITS ---
History and Physical MR#: [id number] Acct: [id number] Name: MILENA LOPES Rep #: [id number] : 1950 73 From: Michael Antonio MD PCP: Dr. Ellis Carter MD Status: ADM IN Location: TN3 [id number] HPI Consult Data Date of Consult: 08/11/23 HPI Narrative HPI Narrative: MILENA LOPES, is a 73 M who presents with left hip intertrochanteric fracture. He was admitted today and I was consulted. I saw the patient on the MedSur floor. 73-year-old gentleman otherwise healthy was going to work today. He slipped and fell on the ice and injured his left hip. He has pain around the left hip area. He denies any other areas of pain. He has longstanding chronic knee pain issues but denies any other injuries. He denies any head injury. He is unable to move his left lower extremity at the hip. Prior to this injury he was able to ambulate without any ambulatory aid. REPLACED BY [facility] Medical History Anxiety Hypertension Home Medications lorazepam 1 mg tablet 0.5 - 1 mg PO BID ANXIETY 05/09/20 [History Last Taken 08/11/23] metoprolol tartrate 25 mg tablet 25 mg PO BID BLOOD PRESSURE 05/09/20 [History Last Taken 08/11/23] sertraline 100 mg tablet 100 mg PO DAILY STRESS 05/09/20 [History Last Taken 08/11/23] garlic extract 1 tab PO DAILY 08/11/23 [History Last Taken 08/11/23] multivitamin (Daily Multi-Vitamin tablet) 1 - 2 tab PO DAILY VITAMIN 08/11/23 [History Last Taken 08/10/23] Allergy/AdvReac Type Severity Reaction Status Date / Time No Known Allergies Allergy Verified 08/11/23 09:24 Family History no significant family his Social History Smoking Status: Never smoker Vital Signs Vital Signs Vital Signs: 08/11/2408:20 08/11/2408:37 08/11/2411:08 Temperature 98.2 F Temperature Source Temporal Pulse Rate 63 65 Respiratory Rate 18 18 Respiratory Effort Normal Blood Pressure 147/96 H 132/82 H Blood Pressure Mean 113 98 Blood Pressure Source Blood Pressure Position Blood Pressure Location Pulse Ox 99 99 Oxygen Delivery Method Room Air Room Air 08/11/2412:28 Temperature 99.4 F H Temperature Source Oral Pulse Rate 64 Respiratory Rate 18 Respiratory Effort Blood Pressure 155/89 H Blood Pressure Mean 111 Blood Pressure Source Monitor Blood Pressure Position Semi-Fowlers Blood Pressure Location Left Arm Pulse Ox 95 Oxygen Delivery Method Room Air Weight Weight: 185 lb 10.067 oz Body Mass Index (BMI) 29.9 Physical Exam Narrative Exam of the left hip shows no obvious skin break. While bruise noticed on the lateral aspect of the left leg. No tenderness around the left knee or distal femur. Left lower extremity is externally rotated. Logrolling positive. Severe pain around the left hip anteriorly and laterally. Distal neurovascular exam is intact. Examination of the right lower and bilateral upper extremities show no obvious bony injuries. Lab / Micro Data 08/11/23 11:00 08/11/23 11:00 Labs: Laboratory Results - last 24 hr 08/11/23 11:00: WBC 13.8 H, RBC 5.24, Hgb 15.6, Hct 44.5, MCV 84.9, MCH 29.8, MCHC 35.1, RDW Std Deviation 36.7, RDW Coeff of Joesph 12.0, Plt Count 156, MPV 9.7, Immature Gran % (Auto) 0.700, Neut % (Auto) 85.8 H, Lymph % (Auto) 8.2 L, M gucci % (Auto) 4.8, Eos % (Auto) 0.3, Baso % (Auto) 0.2, Absolute Neuts (auto) 11.9 H, Absolute Lymphs (auto) 1.14, Nucleated RBC % 0, PT 14.5, INR 1.1, APTT 29.1, Sodium 138, Potassium 3.7, Chloride 106, Carbon Dioxide 26.0, Anion Gap 6, BUN 17, Creatinine 0.84, Estim Creat Clear Calc 87.03, Est GFR (MDRD) Af Amer 116, Est GFR (MDRD) Non-Af 96, BUN/Creatinine Ratio 20.3 H, Glucose 106, Calcium 9.1, Magnesium 2.0 08/11/23 11:15: Blood Type O POSITIVE, Antibody Screen NEGATIVE Imagaing Radiology Impression Hip/Pelvis X-Ray 08/11/23 10:18 IMPRESSION: Impacted left intertrochanteric fracture. Electronically Signed: Denis Yarbrough MD at 11:17 EST , Knee X-Ray 08/11/23 10:21 IMPRESSION: Degenerative arthrosis. Electronically Signed: Denis Yarbrough MD at 11:28 EST , Chest X-Ray 08/11/23 10:45 IMPRESSION: No acute abnormality is seen. Electronically Signed: Denis Yarbrough MD at 11:14 EST , Assessment & Plan Assessment/Plan (1) Closed intertrochanteric fracture of left hip: QUALIFIERS: Encounter type: initial encounter Fracture alignment: nondisplaced Qualified Code(s): S72.145A - Nondisplaced intertrochanteric fracture of left femur, initial encounter for closed fracture PLAN: Plan I reviewed the x-rays obtained in the ER. Patient has a left intertrochanteric versus basicervical femoral neck fracture with displacement. I explained to the patient treatment options. Surgically treatment would give the best opportunity for early as possible return to ambulation and reducing recumbency complications. Left intertrochanteric femur open reduction internal fixation with cephalomedullary nailing was discussed in detail. All risk benefits and alternatives were discussed. The risks include but are not limited to infection, bleeding, injury to nerves and vessels, hardware failure, nonunion, malunion, need for further surgeries, persistent pain, DVT, pulmonary embolism, cardiopulmonary event. Patient understands and agrees to proceed with surgery.
[2023-08-12] MEDS: Cefazolin 2 GM in 0.9% Normal Saline (100mL Bag) 100 ML IV (11:45)
--- NOTE | 2023-08-12 11:58 | PCM.PN.HOSP ---
Reason for Visit Reason for Visit: Diagnoses Nondisplaced intertrochanteric fracture of left femur, initial encounter for closed fracture (08/11/23) Objective Data Objective Data Vital Signs: Vital Signs Temp Pulse Resp BP Pulse Ox O2 Del Method 99.6 F H 75 14 117/74 91 Room Air 08/12/23 10:17 08/12/23 10:17 08/12/23 10:17 08/12/23 10:17 08/12/23 10:17 08/12/23 10:17 Oxygen Delivery Method Room Air Weight: 185 lb 10.067 oz Body Mass Index (BMI) 29.9 Intake & Output: Intake and Output for Last 24 Hours 08/10/23 08/11/23 08/12/23 23:59 23:59 23:59 Intake Total 1000 / 1000 Output Total 300 / 600 1600 / 1600 Balance 700 / 400 -1600 / -1600 Lab / Micro Data 08/12/23 05:55 08/12/23 05:55 Labs: Laboratory Results - last 24 hr 08/11/23 11:00: Magnesium 2.0 08/11/23 11:15: Blood Type O POSITIVE, Antibody Screen NEGATIVE 08/12/23 05:55: WBC 7.1, RBC 4.90, Hgb 14.1, Hct 41.6, MCV 84.9, MCH 28.8, MCHC 33.9, RDW Std Deviation 37.8, RDW Coeff of Joesph 12.3, Plt Count 115 L, MPV 10.0, Immature Gran % (Auto) 0.300, Neut % (Auto) 73.1 H, Lymph % (Auto) 14.4 L, [place] % (Auto) 7.2, Eos % (Auto) 4.6, Baso % (Auto) 0.4, Absolute Neuts (auto) 5.2, Absolute Lymphs (auto) 1.03, Nucleated RBC % 0, Sodium 137, Potassium 3.3 L, Chloride 108 H, Carbon Dioxide 28.0, Anion Gap 1 L, BUN 13, Creatinine 0.76, Estim Creat Clear Calc 86.20, Est GFR (MDRD) Af Amer 129, Est GFR (MDRD) Non-Af 107, BUN/Creatinine Ratio 17.0, Glucose 118 H, Calcium 8.5 Physical Exam Narrative Seen and examined. Patient's son present in the room. Complain of mild pain over left hip region. Physical exam General: Alert, Oriented x3, Cooperative HEENT: Atraumatic, PERRLA, EOMI, Normocephalic Oral: Oral mucosa dry. No Gingival or Mucosal Lesions/ Ulcerations Neck: Supple, No JVD, Negative Carotid Bruits Lungs: Air entry diminished in bilateral lung bases. No crepitation/rhonchi Cardiovascular: Regular rate, Regular Rhythm, Normal S1, Normal S2, No murmurs Abdomen: Bowel Sounds Present, Soft, Non Tender, Non-Distended : No renal angle tenderness. No suprapubic tenderness. Extremities: No edema, Capillary Refill Less than 3 Seconds Skin: No rashes, No breakdown Musculoskeletal: Mild tenderness present over left groin. No swelling over left hip region. LLE flexed and externally rotated. No Tenderness to Palpation of other joints or Extremities Neurological: Cranial nerves II-XII grossly intact, DTR 2+/4. No acute focal neurological deficit. Psych/Mental Status: Normal Affect, Appropriate. Assessment & Plan Assessment/Plan (1) Closed intertrochanteric fracture of left hip: QUALIFIERS: Encounter type: initial encounter Fracture alignment: nondisplaced Qualified Code(s): S72.145A - Nondisplaced intertrochanteric fracture of left femur, initial encounter for closed fracture PLAN: Plan This 72-year-old gentleman being brought by EMS after he had slipped on ice resulting into left hip intertrochanteric fracture. 1. Left impacted intertrochanteric fracture after fall: [facility] Labs reviewed. Mild leukocytosis probably reactive after fall from inflammation/pain. Orthopedic surgery Dr. Olman Oliver is consulted. Electrolytes in normal range. Glucose 106. Serum magnesium in normal range. Patient has good preoperative exercise capacity and is working actively. Patient does not have chronic heart or pulmonary conditions. No history of smoking or alcohol drink. Overall I think patient is mild to moderate perioperative risk for left hip hip surgery. 08/12: Patient is a good operative candidate for left hip surgery. No acute issues overnight. Heart rate and blood pressure is controlled. No fever. 2. Hypertension: Patient on metoprolol 25 mg twice daily. Blood pressure elevated therefore lisinopril 5 mg once daily started. Twelve-lead EKG shows normal sinus rhythm. 3. Mild anxiety and depression: Patient on lorazepam and sertraline at home, continued. DVT prophylaxis moderate risk: Heparin 5000 units subcutaneous every 8 hourly. Hold weed cooking operator dose tomorrow morning prior to surgery. Living will/advanced directive/end of life care: Patient does have living will or advanced directive. He is power of deputy commonwealth's attorney for all this two elder sons. After discussion of benefits/risks procedures involved with full code, DNR CC arrest and DNR CC, the patient opted for full code but does not want to be dependent on ventilator for long time. Patient does want artificial life support including intubation, tube feed, ventilator and/chest compression, central venous catheter, vasopressor and DC shock if needed Laboratory Results 08/11/23 11:00: WBC 13.8 H, RBC 5.24, Hgb 15.6, Hct 44.5, MCV 84.9, MCH 29.8, MCHC 35.1, RDW Std Deviation 36.7, RDW Coeff of Joesph 12.0, Plt Count 156, MPV 9.7, Immature Gran % (Auto) 0.700, Neut % (Auto) 85.8 H, Lymph % (Auto) 8.2 L, [place] % (Auto) 4.8, Eos % (Auto) 0.3, Baso % (Auto) 0.2, Absolute Neuts (auto) 11.9 H, Absolute Lymphs (auto) 1.14, Nucleated RBC % 0, PT 14.5, INR 1.1, APTT 29.1, Sodium 138, Potassium 3.7, Chloride 106, Carbon Dioxide 26.0, Anion Gap 6, BUN 17, Creatinine 0.84, Estim Creat Clear Calc 87.03, Est GFR (MDRD) Af Amer 116, Est GFR (MDRD) Non-Af 96, BUN/Creatinine Ratio 20.3 H, Glucose 106, Calcium 9.1, Magnesium 2.0 08/11/23 11:15: Blood Type O POSITIVE, Antibody Screen NEGATIVE Clinical Impression(s) from Imaging Studies Hip/Pelvis X-Ray 08/11/23 10:18 IMPRESSION: Impacted left intertrochanteric fracture. Knee X-Ray 08/11/23 10:21 IMPRESSION: Degenerative arthrosis. Electronically Signed: Denis Yarbrough MD at 11:28 EST , Chest X-Ray 08/11/23 10:45 IMPRESSION: No acute abnormality is seen. Electronically Signed: Denis Yarbrough MD at 11:14 EST , Charges/Coding Visit Charges Inpatient E&M: 36998 Subs Hosp L2
--- NOTE | 2023-08-12 12:10 | RAD_ITS ---
STUDY: X-RAY - PELVIS AND LEFT HIP REASON FOR EXAM: Male, 73 years old. FX TECHNIQUE: 8 views of the pelvis and hip. COMPARISON: None. FINDINGS: Intraoperative imaging provided for open reduction internal fixation of the left intertrochanteric fracture using a compression screw and intramedullary goukl fixation device. RAD/Hip 1 view with Pelvis IMPRESSION: Intraoperative imaging provided for open reduction and internal fixation of the left intertrochanteric fracture. Electronically Signed: Denis Yarbrough MD at 15:11 EST ,
--- NOTE | 2023-08-12 14:00 | PCM.OPRPT ---
Report of Operation Date of Procedure: 08/12/23 Description of Surgical Findings:: Operative Report Pre-operative Diagnosis: Left intertrochanteric Femur Fracture Post-operative Diagnosis: Left intertrochanteric Femur Fracture Procedure(s) Performed: Left femur Cephalmedullary Nailing CPT 87851 Surgeon: Dr. Michael Antonio MD Bobj Developer: None Estimated Blood Loss: 50 ml Anesthesia: General Drains: None Specimens: None Implants: [place] Gamma3 Trochanteric Nail 11 x 180 mm, 125 degrees Complications: None; patient tolerated the procedure well. Condition: stable Indications: 73-year-old gentleman who had a ground-level fall and sustained a left intertrochanteric femur Fracture. We discussed the benefits and risks of the procedure including but not limited toinfection, bleeding, injury to nerves and vessels, limb length discrepancy, nonunion, malunion, hardware failure, diamond-implant fracture, hip and knee stiffness, persistent pain, difficulty to ambulate, DVT, pulmonary embolism, cardiopulmonary event, need for further surgeries. The patient concurred with the proposed plan, giving informed consent. Procedure Details: The patient was seen in the pre-operative preparation area. The site of surgery was verbally confirmed and marked by the surgical team. The patient was properly identified by the unique identifiers and was then at that time transported to the operative theater by [facility]. A Time Out was held and the above information confirmed. Both lower extremities were placed on the fracture table with the contralateral extremity extended down to allow C-arm to come in. Close reduction maneuver was applied and AP and lateral x-rays were taken. Reduction was acceptable. Operative area was prepped and draped in a sterile fashion. Final timeout was performed. With the help of C-arm incision was marked. A 4 cm Incision was made proximal to the greater trochanter. An appropriate greater trochanter starting point was found using the starting wire under fluoroscopy. The wire was then drilled to the metadiaphyseal region of the femur. The opening reamer was then drilled into the metadiaphysis under fluoro. A ball tip guide wire was then placed down the femur. A separate distal incision laterally in line with the lesser trochanter was taken. Gamma Nail was then placed into the intramedullary canal of the femur and placement was verified with fluoroscopy and advanced to an appropriate level to allow placement of the lag screw. Guidewire was removed. We then drilled the wire for the lag screw up the neck of the femur under fluoroscopic guidance. Another wire for derotation was placed into the superior neck. The wire for the lag screw was then measured. The track was then drilled and a 95 mm lag screw was placed up the neck of the femur. Locking knot was placed. Derotating wire was removed. A distal static interlocking screw was placed through the jig. Final fluorscopic images were then taken and the placement of the intramedullary device and fracture was deemed appropriate. The wounds were irrigated copiously with sterile solution. The deep fascia was closed with 0 vicryl suture. The deep dermal layer was closed with 2-0 vicryl suture. [place] were used to close the skin. Gauze dressing with Tegaderm was used on the incisions. The patient was then awaken, extubated and taken to the PACU. I was present and scrubbed for the entire procedure. Postoperative plan: Patient will be WBAT. Recommend PT/OT evaluation Pain Control F/u Outpatient in 2 weeks Admit VTE Documentation VTE Mechan Device Prophylaxis: SCD's Procedures Musculoskeletal [id number]: Other Procedure See Report
--- NOTE | 2023-08-12 14:05 | PCM.PN.ORT ---
Subjective Subjective Seen in PACU. Status post left hip gamma nail. Pain well-controlled. Able to actively move toes. Objective Data Objective Data Vital Signs: Vital Signs Temp Pulse Resp BP Pulse Ox O2 Del Method 99.6 F H 75 14 117/74 91 Room Air 08/12/23 10:17 08/12/23 10:17 08/12/23 10:17 08/12/23 10:17 08/12/23 10:17 08/12/23 10:17 Oxygen Delivery Method Room Air Weight: 185 lb 10.067 oz Body Mass Index (BMI) 29.9 Intake & Output: Intake and Output for Last 24 Hours 08/10/23 08/11/23 08/12/23 23:59 23:59 23:59 Intake Total 1000 / 1000 110 / 110 Output Total 300 / 600 1600 / 1600 Balance 700 / 400 -1490 / -1490 Lab / Micro Data 08/12/23 05:55 08/12/23 05:55 Labs: Laboratory Results - last 24 hr 08/12/23 05:55: WBC 7.1, RBC 4.90, Hgb 14.1, Hct 41.6, MCV 84.9, MCH 28.8, MCHC 33.9, RDW Std Deviation 37.8, RDW Coeff of Joesph 12.3, Plt Count 115 L, MPV 10.0, Immature Gran % (Auto) 0.300, Neut % (Auto) 73.1 H, Lymph % (Auto) 14.4 L, [place] % (Auto) 7.2, Eos % (Auto) 4.6, Baso % (Auto) 0.4, Absolute Neuts (auto) 5.2, Absolute Lymphs (auto) 1.03, Nucleated RBC % 0, Sodium 137, Potassium 3.3 L, Chloride 108 H, Carbon Dioxide 28.0, Anion Gap 1 L, BUN 13, Creatinine 0.76, Estim Creat Clear Calc 86.20, Est GFR (MDRD) Af Amer 129, Est GFR (MDRD) Non-Af 107, BUN/Creatinine Ratio 17.0, Glucose 118 H, Calcium 8.5 Physical Exam Narrative Dressing CDI. Distal neurovascular exam is intact. Assessment & Plan Assessment/Plan (1) Closed intertrochanteric fracture of left hip: QUALIFIERS: Encounter type: initial encounter Fracture alignment: nondisplaced Qualified Code(s): S72.145A - Nondisplaced intertrochanteric fracture of left femur, initial encounter for closed fracture PLAN: Plan PT OT mobilization when able. Weightbearing as tolerated. DVT chemoprophylaxis with Xarelto for 2 weeks followed by aspirin for 4 weeks. Will continue to follow while in-house. Will also follow-up in clinic in 2 weeks.
--- NOTE | 2023-08-12 14:53 | NURSING ---
reviewed student charting
--- NOTE | 2023-08-12 16:01 | CHAPLAIN ---
Type of Pastoral Visit ___ Initial Visit ___ Follow-up Visit ___ On-call Visit ___ General Patient Visit ___ Spiritual Assessment ___ Family Conference ___ Bereavement ___ Rapid Response ___ Code Blue ___ Other (describe below) Pastoral Care Referral From ___ Patient ___ Family ___ Nurse ___ Physician ___ Manager Civil ___ Parking Lot Chauffeur ___ Other (describe below) Sacrament/Intervention ___ Active listening ___ Anointing ___ Baptist ___ Bereavement ___ Communion ___ Devika exploration ___ ___ Life review ___ Prayer ___ Reconciliation ___ Sacrament of Sick ___ Supportive presence ___ Wedding ___ Other (describe below) Pastoral Comments patient has not yet returned from surgery but family member is in the room waiting; son-in-law is welcoming and polite and discusses the needs of the patient; offer of support to family; pt will be seen tomorrow if possible
[2023-08-12] MEDS: Sertraline 100 MG Tablet PO (16:31)
[2023-08-12] MEDS: Pantoprazole Sodium 40 MG Tablet PO (16:31)
[2023-08-12] MEDS: Acetaminophen 500 MG Tablet 1000 MG PO (19:56)
[2023-08-12] MEDS: Cefazolin 1 GM/50 ML BAG IV (19:57)
[2023-08-12] MEDS: Senna/Docusate Sodium 1 Tablet 2 TABLET PO (21:02)
[2023-08-12] MEDS: Ketorolac 15 MG/ML Vial IV (22:12)
[2023-08-13] VITALS (8 sets, daily range): BP systolic 110–117; BP diastolic 68–74; PULSE 60–64; RESP 16–18; TEMP 36.6–37.1; O2SAT 92–99; BMI 30.4
[2023-08-13] MEDS: Cefazolin 1 GM/50 ML BAG IV (05:03)
[2023-08-13] MEDS: Acetaminophen 500 MG Tablet 1000 MG PO ×3 (05:05→22:02)
[2023-08-13] MEDS: Ketorolac 15 MG/ML Vial IV ×3 (05:06→22:02)
[2023-08-13] MEDS: Rivaroxaban 10 MG Tablet PO (05:08)
--- NOTE | 2023-08-13 07:10 | PN.HOSP_ITS ---
Reason for Visit Reason for Visit: Diagnoses Nondisplaced intertrochanteric fracture of left femur, initial encounter for cl osed fracture (08/11/23) Objective Data Objective Data Vital Signs: Vital Signs Temp Pulse Resp BP Pulse Ox O2 Del Method O2 Flow Rate 98 F 64 16 117/74 94 Room Air 3 08/13/23 04:13 08/13/23 04:13 08/13/23 04:13 08/13/23 04:13 08/13/23 04:13 08/13/23 04:13 08/12/23 15:00 Oxygen Flow Rate (L/min) 3 Oxygen Delivery Method Room Air Weight: 189 lb 6.033 oz Body Mass Index (BMI) 30.4 Intake & Output: Intake and Output for Last 24 Hours 08/11/23 08/12/23 08/13/23 23:59 23:59 23:59 Intake Total 1000 / 1000 1160 / 1160 50 / 50 Output Total 300 / 600 1600 / 2125 900 / 900 Balance 700 / 400 -440 / -965 -850 / -850 Lab / Micro Data 08/13/23 07:45 08/13/23 07:45 Radiography Diagnostic Testing: Radiology Impression Hip/Pelvis X-Ray 08/12/23 12:10 IMPRESSION: Intraoperative imaging provided for open reduction and internal fixation of the left intertrochanteric fracture. Electronically Signed: Denis Yarbrough MD at 15:11 EST Reading Location ID and State: [address] [place] [address] , Service support , Physical Exam Narrative Seen and examined. Patient's son present in the room. Complain of mild pain over left hip left hip operative region. Patient sitting up on the chair. Physical exam General: Alert, Oriented x3, Cooperative HEENT: Atraumatic, PERRLA, EOMI, Normocephalic Oral: Oral mucosa dry. No Gingival or Mucosal Lesions/ Ulcerations Neck: Supple, No JVD, Negative Carotid Bruits Lungs: Air entry diminished in bilateral lung bases. No crepitation/rhonchi Cardiovascular: Regular rate, Regular Rhythm, Normal S1, Normal S2, No murmurs Abdomen: Bowel Sounds Present, Soft, Non Tender, Non-Distended : No renal angle tenderness. No suprapubic tenderness. Extremities: No edema, Capillary Refill Less than 3 Seconds Skin: Operative surgical dressing is dry. No open drainage or bleeding or hematoma. Musculoskeletal: Mild tenderness present over left hip region. No Tenderness to Palpation of other joints or Extremities Neurological: Cranial nerves II-XII grossly intact, DTR 2+/4. No acute focal neurological deficit. Psych/Mental Status: Normal Affect, Appropriate. Assessment & Plan Assessment/Plan (1) Closed intertrochanteric fracture of left hip: QUALIFIERS: Encounter type: initial encounter Fracture alignment: nondisplaced Qualified Code(s): S72.145A - Nondisplaced intertrochanteric fracture of left femur, initial encounter for closed fracture PLAN: Plan This 72-year-old gentleman being brought by EMS after he had slipped on ice resulting into left hip intertrochanteric fracture. 1. Left impacted intertrochanteric fracture after fall: Patient is being admi tted in [facility] floor with telemetry. Labs reviewed. Mild leukocytosis probably reactive after fall from inflammation/pain. Orthopedic surgery Dr. Olman Oliver is consulted. Electrolytes in normal range. Glucose 106. Serum magnesium in normal range. Patient has good preoperative exercise capacity and is working actively. Patient does not have chronic heart or pulmonary conditions. No history of smoking or alcohol drink. Overall I think patient is mild to moderate perioperative risk for left hip hip surgery. 08/12: Patient is a good operative candidate for left hip surgery. No acute iss ues overnight. Heart rate and blood pressure is controlled. No fever. 08/13: Unclear how the patient's medications got discontinued but patient was put back on medications. Patient had mild nausea but did not like morphine therefore oxycodone started. IV Toradol 15 mg every 8 hourly scheduled. PT and OT to continue. Operative region is intact with no hematoma or swelling or bleeding. 2. Hypertension: Patient on metoprolol 25 mg twice daily. Blood pressure elevated therefore lisinopril 5 mg once daily started. Twelve-lead EKG shows normal sinus rhythm. 08/13: Blood pressure is controlled. 3. Mild anxiety and depression: Patient on lorazepam and sertraline at home, continued. DVT prophylaxis moderate risk: Heparin 5000 units subcutaneous every 8 hourly. Hold assembler brazer dose tomorrow morning prior to surgery. Expect discharge tomorrow. Living will/advanced directive/end of life care: Patient does have living will or advanced directive. He is power of contract attorney for all this two elder sons. After discussion of benefits/risks procedures involved with full code, DNR CC arrest and DNR CC, the patient opted for full code but does not want to be dependent on ventilator for long time. Patient does want artificial life support including intubation, tube feed, ventilator and/chest compression, central venous catheter, vasopressor and DC shock if needed Laboratory Results 08/11/23 11:00: WBC 13.8 H, RBC 5.24, Hgb 15.6, Hct 44.5, MCV 84.9, MCH 29.8, MCHC 35.1, RDW Std Deviation 36.7, RDW Coeff of Joesph 12.0, Plt Count 156, MPV 9.7, Immature Gran % (Auto) 0.700, Neut % (Auto) 85.8 H, Lymph % (Auto) 8.2 L, [place] % (Auto) 4.8, Eos % (Auto) 0.3, Baso % (Auto) 0.2, Absolute Neuts (auto) 11.9 H, Absolute Lymphs (auto) 1.14, Nucleated RBC % 0, PT 14.5, INR 1.1, APTT 29.1, Sodium 138, Potassium 3.7, Chloride 106, Carbon Dioxide 26.0, Anion Gap 6, BUN 17, Creatinine 0.84, Estim Creat Clear Calc 87.03, Est GFR (MDRD) Af Amer 116, Est GFR (MDRD) Non-Af 96, BUN/Creatinine Ratio 20.3 H, Glucose 106, Calcium 9.1, Magnesium 2.0 08/11/23 11:15: Blood Type O POSITIVE, Antibody Screen NEGATIVE Clinical Impression(s) from Imaging Studies Hip/Pelvis X-Ray 08/11/23 10:18 IMPRESSION: Impacted left intertrochanteric fracture. Knee X-Ray 08/11/23 10:21 IMPRESSION: Degenerative arthrosis. Electronically Signed: Denis Yarbrough MD at 11:28 EST , Chest X-Ray 01/23/24 10:45 IMPRESSION: No acute abnormality is seen. Electronically Signed: Denis Yarbrough MD at 11:14 EST , Charges/Coding Visit Charges Inpatient E&M: 30104 Subs Hosp L2
[2023-08-13 07:54] LABS: Absolute Lymphocyte Count 0.87 X10^3/uL (0.83-4.51); Absolute Neutrophil Count 9.3 X10^3/uL (2.0-7.7); Basophil# 0.02 X10^3/uL; Basophil% 0.2 % (0-1); Eosinophil# 0.18 X10^3/uL; Eosinophils% 1.6 % (0-5); Hematocrit 37.2 % (40-54); Hemoglobin 12.5 g/dL (13.0-16.5); Lymphocyte # 0.87 X10^3/ul (0.83-4.51); Lymphocyte % 7.9 % (19-41); Mean Corp Hgb Conc 33.6 g/dL (32-36); Mean Corpuscular Hgb 28.7 pg (27.0-32.0); Mean Corpuscular Volume 85.3 fL (80-94); Mean Platelet Vol. 9.1 fl (6.2-12.0); Monocyte% 6.3 % (0-10); NRBC Flagged by Analyzer 0 % (0-5); Neutrophil # 9.26 X10^3/uL (2.7-7.7); Neutrophil % 83.5 % (47-70); Platelet Count 121 K/mm3 (150-450); RBC Distribution Width CV 12.2 % (11.6-14.6); RBC Distribution Width SD 38.1 fl (35.1-43.9); Red Blood Count 4.36 M/mm3 (4.6-6.2); White Blood Count 11.1 K/mm3 (4.4-11.0)
[2023-08-13] MEDS: 0.9% Saline Lock 10 ML Syringe IV ×2 (07:55→22:03)
[2023-08-13] MEDS: Senna/Docusate Sodium 1 Tablet 2 TABLET PO (07:55)
[2023-08-13] MEDS: Lisinopril 5 MG Tablet PO (07:55)
[2023-08-13] MEDS: Metoprolol Tartrate 25 MG Tablet PO ×2 (07:56→22:02)
[2023-08-13] MEDS: Pantoprazole Sodium 40 MG Tablet PO (07:56)
[2023-08-13 08:13] LABS: Anion Gap 2 (5-15); BUN 18 mg/dL (7-18); BUN/Creat Ratio 20.3 RATIO (10-20); Calcium,Total 8.2 mg/dL (8.5-10.1); Chloride 108 mmol/L (98-107); Creatinine, Serum 0.89 mg/dL (0.70-1.30); EST Glomerular Filtration Rate 90 mL/min (>60); Est Glom Filt Rate - Afr Amer 109 mL/min (>60); Estimated Creatinine Clearance 78.22 ml/min; Glucose 108 mg/dL (74-106); Potassium 3.8 mmol/L (3.5-5.1); Sodium Level 136 mmol/L (136-145)
--- NOTE | 2023-08-13 08:45 | PN.ORTHO_ITS ---
Subjective Subjective Postop day 1 status post left hip gamma nail. Patient around the hip is much better. Declined morphine last night, good pain control with Toradol. Sitting up and eating breakfast this morning. Objective Data Objective Data Vital Signs: Vital Signs Temp Pulse Resp BP Pulse Ox O2 Del Method O2 Flow Rate 98.7 F 64 18 110/68 94 Room Air 3 08/13/23 07:51 08/13/23 07:56 08/13/23 07:51 08/13/23 07:51 08/13/23 07:51 08/13/23 07:51 08/12/23 15:00 Oxygen Flow Rate (L/min) 3 Oxygen Delivery Method Room Air Weight: 189 lb 6.033 oz Body Mass Index (BMI) 30.4 Intake & Output: Intake and Output for Last 24 Hours 08/11/23 08/12/23 08/13/23 23:59 23:59 23:59 Intake Total 1000 / 1000 1160 / 1160 50 / 50 Output Total 300 / 600 1600 / 2125 900 / 900 Balance 700 / 400 -440 / -965 -850 / -850 Lab / Micro Data 08/13/23 07:45 08/13/23 07:45 Labs: Laboratory Results - last 24 hr 08/13/23 07:45: WBC 11.1 H, RBC 4.36 L, Hgb 12.5 L, Hct 37.2 L, MCV 85.3, MCH 28.7, MCHC 33.6, RDW Std Deviation 38.1, RDW Coeff of Joesph 12.2, Plt Count 121 L, MPV 9.1, Immature Gran % (Auto) 0.500, Neut % (Auto) 83.5 H, Lymph % (Auto) 7.9 L, [place] % (Auto) 6.3, Eos % (Auto) 1.6, Baso % (Auto) 0.2, Absolute Neuts (auto) 9.3 H, Absolute Lymphs (auto) 0.87, Nucleated RBC % 0, Sodium 136, Potassium 3.8, Chloride 108 H, Carbon Dioxide 26.0, Anion Gap 2 L, BUN 18, Creatinine 0.89, Estim Creat Clear Calc 78.22, Est GFR (MDRD) Af Amer 109, Est GFR (MDRD) Non-Af 90, BUN/Creatinine Ratio 20.3 H, Glucose 108 H, Calcium 8.2 L Radiography Diagnostic Testing: Radiology Impression Hip/Pelvis X-Ray 08/12/23 12:10 IMPRESSION: Intraoperative imaging provided for open reduction and internal fixation of the left intertrochanteric fracture. Electronically Signed: Denis Yarbrough MD at 15:11 EST , Physical Exam Narrative Examination of the left hip shows dressings with mild sanguinous staining. Distal neurovascular exam is intact. Assessment & Plan Assessment/Plan (1) Closed intertrochanteric fracture of left hip: QUALIFIERS: Encounter type: initial encounter Fracture alignment: nondisplaced Qualified Code(s): S72.145A - Nondisplaced intertrochanteric fracture of left femur, initial encounter for closed fracture PLAN: Plan Pain seems well-controlled. PT OT mobilization today. Weightbearing as tolerated. DVT chemoprophylaxis with Xarelto. Will continue to follow. Follow-up in clinic in 2 weeks.
--- NOTE | 2023-08-13 10:50 | CASEMGMT ---
Social Work SW met with pt to discuss advance directives.? Pt confirms he has completed a living will but not a health care POA. SW offered to assist pt in completing this document and pt declines stating his children will be his decision makers. MARCIN Phan
[2023-08-13] MEDS: Sertraline 100 MG Tablet PO (12:08)
--- OUTSIDE RECORDS SUMMARY | 2023-08-13 12:09 | XMS RPT_ITS | CCD ---
Author Name Unknown Address [address] [place] [address] Organization [facility] Care Team Providers Care Corsetier Name Role Phone Unavailable Primary Care Provider UnavailEVA Pinzon Admitting Unavailable EVA CERON Attending Unavailable MICHELL, EVA Rosenthal Primary Care Unavailable ELLIS CARTER MD Consulting Unavailable PROVIDER, UNKNOWN Consulting Unavailable EVA CERON Admitting Unavailable EVA CERON Attending Unavailable EVA CERON Primary Care Unavailable ELLIS CARTER MD Consulting Unavailable PROVIDER, UNKNOWN Consulting Unavailable EVA CERON Admitting Unavailable MICHELLEVA ADAN Attending Unavailable EVA [...] Onset: 03-28-2022 Other aftercare (2 sources) Other computer terminal operator (current) drug therapy; Translations: [Other computer terminal operator (current) drug therapy] Onset: 03-28-2022 Episodic [...] 97 % Cam Newman MD Work Phone: [facility] 03-28-2022 14:15-0400 Diastolic blood pressure 88 mm[Hg] Cam Newman MD Work Phone: [facility] 03-28-2022 14:15-0400 Heart rate 68 /min Cam Newman MD Work Phone: [facility] 03-28-2022 14:15-0400 Respiratory rate 16 /min Cam Newman MD Work Phone: [facility] 03-28-2022 14:15-0400 Systolic blood pressure 140 mm[Hg] Cam Newman MD Work Phone: [facility] 03-28-2022 13:28-0400 Body temperature 98.49 [degF] Cam Newman MD Work Phone: [facility] 03-28-2022 11:02-0400 Body height 167.6 cm Cam Newman MD Work Phone: [facility] 03-28-2022 11:02-0400 Body mass index (BMI) [Ratio] 29.86 kg/m2 Cam Newman MD Work Phone: [facility] 03-28-2022 11:02-0400 Body weight 83.92 kg Cam Newman MD Work Phone: [facility] 03-28-2022 08:30-0400 Body temperature 98.2 [degF] Cam Newman MD Work Phone: [facility] 03-28-2022 08:30-0400 Diastolic blood pressure 87 mm[Hg] Cam Newman MD Work Phone: [facility] 03-28-2022 08:30-0400 Heart rate 55 /min Cam Newman MD Work Phone: [facility] 03-28-2022 08:30-0400 Respiratory rate 18 /min Cam Newman MD Work Phone: [facility] 03-28-2022 08:30-0400 SaO2% (BldA) [Mass fraction] 98 % Cam Newman MD Work Phone: [facility] 03-28-2022 08:30-0400 Systolic blood pressure 143 mm[Hg] Cam Newman MD Work Phone: [facility] 12-13-2019 15:15-0400 BP Diastolic 93 mm[Hg] [place], [place] 12-13-2019 15:15-0400 BP Systolic 147 mm[Hg] [facility] , [place] 12-13-2019 15:15-0400 Pulse (Heart Rate) 56 /min [place], [place] 12-13-2019 15:15-0400 Pulse Oximetry 98 % [place], [place] 12-13-2019 15:15-0400 Respiratory Rate 16 /min [facility], [place] 12-13-2019 13:13-0400 Body Temperature 97.39 [degF] [facility], [place] 12-13-2019 09:50-0400 BMI (Body Mass Index) 29.05 kg/m2 [facility], [place] 12-13-2019 09:50-0400 Body weight 81.65 kg [facility] , [place] 12-13-2019 09:50-0400 Height 167.6 cm [place], [place] 12-09-2019 10:54-0400 Body Temperature 99.39 [degF] [place], [place] 12-09-2019 10:54-0400 BP Diastolic 77 mm[Hg] [place] 12-09-2019 10:54-0400 BP Systolic 136 mm[Hg] [place] 12-09-2019 10:54-0400 Pulse (Heart Rate) 55 /min [place], [place] 12-09-2019 10:54-0400 Pulse Oximetry 97 % [place] 12-09-2019 10:54-0400 Respiratory Rate 20 /min [place], [place] 12-09-2019 10:54-0400 BMI (Body Mass Index) 31.05 kg/m2 [place], [place] 12-09-2019 10:54-0400 Body weight 87.27 kg [place], [place] 12-09-2019 10:54-0400 Height 167.6 cm [place] Encounters Encounter Date Encounter Type Care Provider Facility Start: 07-22-2022 End: 07-22-2022 ambulatory [facility] Start: 07-05-2022 End: 07-06-2022 ambulatory [facility] Start: 07-04-2022 End: 07-05-2022 ambulatory [facility] Start: 06-27-2022 End: 06-27-2022 ambulatory [facility] Start: 03-28-2022 End: 03-28-2022 [facility] Start: 03-28-2022 End: 03-28-2022 Subsequent hospital visit [...] Newman MD [address] [place], [place] [id number] [facility] [place] [facility] Start: 03-28-2022 Subsequent hospital visit by physician 03/28/2022 Hospital Encounter General Surgery Cam Newman MD [address] [place], [place] [id number] [facility] Start: 03-20-2022 Influenza vaccination Flu vaccine (# 1) [facility] Start: 03-20-2020 Influenza vaccination Flu vacc ine (Season Ended) [place], [place] Start: 12-27-2019 End: 12-27-2019 Office Visit 12/27/2019 Office Visit Advanced Laparoscopic Surgery Rosie Moody PA-C [address] [place] [address] [phone] [facility] [place] [facility] Start: 12-13-2019 Hospital Encounter 12/13/2019 Hospital Encounter General Surgery Cam Newman MD [address] [place], [place] [id number] [facility] Start: 2017 Pneumococcal 65+ yea rs Vaccine (1 - PCV) Pneumococcal 65+ years Vaccine (1 - PCV) [facility] Start: 2017 Pneumococcal 65+ yea rs Vaccine (1 of 1 - PPSV23) Pneumococcal 65+ years Vaccine (1 of 1 - PPSV23) [place] Start: 2002 Screening for malign ant neoplasm of colon Colon cancer screen colonoscopy [place], [place] Start: 2002 Shingles Vaccine (1 of 2) Tsai gles Vaccine (1 of 2) [facility] Start: 1997 Screening for malign ant neoplasm of colon [facility] Start: 1992 Diabetes screen Diabetes screen [place], [place] Start: 1992 Lipid panel [facility] Start: 1971 DTaP/Tdap/Td vaccine (1 - Tdap) DTaP/Tdap/Td vaccine (1 - Tdap) [facility] Start: 1970 Hepatitis C screening Hepatitis C sc fabio [facility] Start: 1964 Depression Screen Depression Screen [facility] Start: 1952 COVID-19 Vaccine (#1) COVID-19 Vacci ne (#1) [facility] Start: 1952 Hepatitis C screening Hepatitis C sc [facility] [place] End: 12-13-2019 Blood glucose - POCT Blood glucose - POCT Point of Care Testing STAT One Time for 1 Occurrences starting 12/13/2019 until 12/13/2019 [place], [place] Payers Date Payer Category Payer Unknown [id number] 1950 Unknown [id number] 1950 Unknown [id number] 1950 Unknown [id number] Self-pay Unknown [id number] Social History Date Type Detail Facility Start: 11-04-2019 End: 11-10-2019 Tobacco smoking status NHIS Never smoker [place] Start: 11-10-2019 End: 03-28-2022 Alcohol intake Lifetime non-drinker (finding) [place] Start: 11-04-2019 History SDOH Alcohol Frequency 1 [place] Start: 1950 Sex Assigned At Not on file [place] Exposure to SARS-CoV -2 (event) Unable to assess [place] Start: 11-04-2019 Tobacco use and exposure Smokeless tobacco non-user [facility] Work Phone: Start: 03-18-2022 End: 03-28-2022 Exposure to SARS-CoV-2 (event) Not sure [facility] Clinical Notes 03-28-2022 to 07-05-2022 Kathleen [...] Your Medications These medications were sent to [facility] [address] [place] [id number] Hours: Thursday to Thursday 10 am to 6 pm ondansetron 4 MG tablet oxyCODONE-acetaminophen 5-325 MG tablet DIET: Adult diet Clear liquid ACTIVITY: No heavy lifting. __ COMPLEXITY OF FOLLOW UP: [x] Moderate Complexity: follow up within 7-14 calendar days (18841) [] Severe Complexity: follow up within 7 calendar days (87792) FOLLOW UP TESTING, PENDING RESULTS OR REFERRALS AT TRANSITIONAL CARE VISIT: [] Yes [x] No PENDING STUDIES: na DISPOSITION: Home FACILITY/HOME CARE AGENCY NAME: n/a Follow up with Cam Newman MD [address] [facility] [address] [facility] [address] Schedule an appointment as soon as possible [...] SIGNED: Kathie Morgan MD 07/05/2022, 4:22 PM [facility] 07-05-2022 Note GENERAL SURGERY Prog ress [...] myself. A full chart review was performed. [facility] 07-04-2022 Note Patient: Mio palmer Procedure Summary Date: 07/04/22 Room / Location: [facility] Operating Room Anesthesia Start: 831 Anesthesia Stop: [...] once all PACU criteria has been met. [facility] 07-04-2022 Note Patient: Mio palmer Procedure Summary Date: 07/04/22 Room / Location: [facility] Operating Room Anesthesia Start: 0832 Anesthesia Stop: [...] start time until discharged from PACU ([id number]) [facility] Anesthesiology Smoking Abstinence [facility] 404 I completed my handoff to the receiving clinician during which we: 1. Identified the patient 2. Identified the responsible provider 3. Reviewed the pertinent medical history 4. Discussed the surgical course 5. Reviewed intra-op anesthesia management and issues during anesthesia 6. Set expectations for post-procedure period 7. Allowed opportunity for questions and acknowledgement of understanding. [facility] 07-04-2022 Note Airway Date/Time: 07/04/2022 8:48 AM Urgency: scheduled General Information and Staff Patient location during procedure: Procedural Anesthesiologist: Dayne Mello MD Resident/JEWEL CUPPING MACHINE OPERATOR: ZACHARIAH Ballesteros CRNA Performed: JEWEL CUPPING MACHINE OPERATOR Indications and Patient Condition Indications for airway [...] 23 Number of attempts at approach: 1 [facility] 07-04-2022 Note Peripheral Block Time Out: 07/04/2022 8:36 AM Patient location during procedure: Procedural Start time: 07/04/2022 8:36 AM End time: 07/04/2022 8:36 AM Reason for block: at surgeon's request and post-op pain management Staffing Performed: JEWEL CUPPING MACHINE OPERATOR Resident/JEWEL CUPPING MACHINE OPERATOR: ZACHARIAH Ladd CRNA Preanesthetic Checklist Completed: patient [...] supine Prep: ChloraPrep Patient monitoring: heart rate, equipment monitor phototypesetting, continuous pulse ox and continuous capnometry O2: [...] plane. and Local anesthetic injected without difficulty [facility] 07-04-2022 Note Advanced Laparoscopi c Surgery [...] hiatal hernia repair Proceed with hiatal hernia [facility] 07-04-2022 Note Patient: Mio palmer Procedure Information Date/Time: 07/04/22829 Procedure: LAPAROSCOPY REPAIR PARAESOPHAGEAL HERNIA INCLUDING FUNDOPLASTY WITH MESH (Abdomen) Location: [facility] Operating Room Surgeons: Cam Newman MD [...] Atrial premature complexes Borderline left axis deviation [facility] 06-29-2022 Note Patient: Mio palmer Procedure Information Date/Time: 06/27/22 0900 Scheduled providers: Gianna Adams RN Procedure: PAT OPTIMIZATION CALL Location: [facility] Pre-Admit Testing Relevant Problems GI (+) Gastroesophageal [...] found for this or any previous visit. [facility] 03-28-2022 History of Present illness Narrative Pt arrived to PACU from OR. Pt ID verified. Monitors applied with alarms on. Vital signs stable. documented in this encounter [facility] Phone: 03-28-2022 Hospital Discharge instructions Eva Swan [...] FoundDocuments on File Type Date Recorded Patient Watch Caser Expl anation Advance Directives and Living Will Power of Psych Coordinator Documents on File Type Date Recorded Patient Watch Caser Expl anation Advance Directives and Living Will Power of Psych Coordinator Latest Code Status on File Code Status [...] Procedures EKG 12 lead Rosie Moody PA-C [address] [place] [address] [address] [place] [address] Discharge Instructions * Instructions* Nidia Sauceda RN - 12/09/2019 Please bring your [employer] Surgical Information folder on the day of [...] sent through Care Everywhere. * Cholecystectomy: Post-op (Bur[place]) documented in this encounter* Instructions* Lexie Cunningham [...] EDT 1547 up walked in [facility] diff returned to room DC'd Iv held [...] DATE CREATED AUTHOR AUTHOR'S ORGANIZ ATION 01/01/2020 [facility] DATE CREATED AUTHOR AUTHOR'S ORGANIZ ATION 01/04/[address] [facility] DATE CREATED AUTHOR AUTHOR'S ORGANIZ ATION 04/29/2022 [employer] [facility] DATE CREATED AUTHOR AUTHOR'S ORGANIZ ATION 07/22/2022 [facility] [employer] [facility] Scheduled Active and Recently [...] BE BASED ON THE PRIMARY CLINICAL RECORDS. [employer] provides no warranty or guarantee of the accuracy or completeness of information in this document.
--- OUTSIDE RECORDS SUMMARY | 2023-08-13 12:10 | XMS RPT_ITS | CCD ---
Author Name Unknown Address [address] [place] [address] Organization [facility] Care Team Providers Care Digital Solution Architect Name Role Phone Unavailable Primary Care Provider UnavailEVA Pinzon Admitting Unavailable EVA CERON Attending Unavailable MICHELL, EVA Rosenthal Primary Care Unavailable ELLIS CATRER MD Consulting Unavailable PROVIDER, UNKNOWN Consulting Unavailable [...] NEWMAN Attending Unavailable CAM NEWMAN Admitting Unavailable ACM NEWMAN Attending Unavailable CAM NEWMAN Referring Unavailable [...] Onset: 03-28-2022 Other aftercare (2 sources) Other middle or intermediate school principal (current) drug therapy; Translations: [Other middle or intermediate school principal (current) drug therapy] Onset: 03-28-2022 Episodic Other [...] 97 % Cam Newman MD Work Phone: [facility] 03-28-2022 14:15-0400 Diastolic blood pressure 88 mm[Hg] Cam Newman MD Work Phone: [facility] 03-28-2022 14:15-0400 Heart rate 68 /min Cam Newman MD Work Phone: [facility] 03-28-2022 14:15-0400 Respiratory rate 16 /min Cam Newman MD Work Phone: [facility] 03-28-2022 14:15-0400 Systolic blood pressure 140 mm[Hg] Cam Newman MD Work Phone: [facility] 03-28-2022 13:28-0400 Body temperature 98.49 [degF] Cam Newman MD Work Phone: [facility] 03-28-2022 11:02-0400 Body height 167.6 cm Cam Newman MD Work Phone: [facility] 03-28-2022 11:02-0400 Body mass index (BMI) [Ratio] 29.86 kg/m2 Cam Newman MD Work Phone: [facility] 03-28-2022 11:02-0400 Body weight 83.92 kg Cam Newman MD Work Phone: [facility] 03-28-2022 08:30-0400 Body temperature 98.2 [degF] Cam Newman MD Work Phone: [facility] 03-28-2022 08:30-0400 Diastolic blood pressure 87 mm[Hg] Cam Newman MD Work Phone: [facility] 03-28-2022 08:30-0400 Heart rate 55 /min Cam Newman MD Work Phone: [facility] 03-28-2022 08:30-0400 Respiratory rate 18 /min Cam Newman MD Work Phone: [facility] 03-28-2022 08:30-0400 SaO2% (BldA) [Mass fraction] 98 % Cam Newman MD Work Phone: [facility] 03-28-2022 08:30-0400 Systolic blood pressure 143 mm[Hg] Cam Newman MD Work Phone: [facility] 12-13-2019 15:15-0400 BP Diastolic 93 mm[Hg] [place] 12-13-2019 15:15-0400 BP Systolic 147 mm[Hg] [facility] , [place] 12-13-2019 15:15-0400 Pulse (Heart Rate) 56 /min [place], [place] 12-13-2019 15:15-0400 Pulse Oximetry 98 % [place] 12-13-2019 15:15-0400 Respiratory Rate 16 /min [facility], [place] 12-13-2019 13:13-0400 Body Temperature 97.39 [degF] [facility], [place] 12-13-2019 09:50-0400 BMI (Body Mass Index) 29.05 kg/m2 [facility], [place] 12-13-2019 09:50-0400 Body weight 81.65 kg [facility] , [place] 12-13-2019 09:50-0400 Height 167.6 cm [place] 12-09-2019 10:54-0400 Body Temperature 99.39 [degF] [place], [place] 12-09-2019 10:54-0400 BP Diastolic 77 mm[Hg] [place] 12-09-2019 10:54-0400 BP Systolic 136 mm[Hg] [place] 12-09-2019 10:54-0400 Pulse (Heart Rate) 55 /min [place] 12-09-2019 10:54-0400 Pulse Oximetry 97 % [place] 12-09-2019 10:54-0400 Respiratory Rate 20 /min [place] 12-09-2019 10:54-0400 BMI (Body Mass Index) 31.05 kg/m2 [place] 12-09-2019 10:54-0400 Body weight 87.27 kg [place] 12-09-2019 10:54-0400 Height 167.6 cm [place] Encounters Encounter Date Encounter Type Care Provider Facility Start: 07-22-2022 End: 07-22-2022 ambulatory [facility] Start: 07-05-2022 End: 07-06-2022 ambulatory [facility] Start: 07-04-2022 End: 07-05-2022 ambulatory [facility] Start: 06-27-2022 End: 06-27-2022 ambulatory [facility] Start: 03-28-2022 End: 03-28-2022 ambulatory [facility] Start: 03-28-2022 End: 03-28-2022 Subsequent hospital visit [...] Newman MD [address] [place], [place] [id number] [facility] [place] [facility] Start: 03-28-2022 Subsequent hospital visit by physician 03/28/2022 Hospital Encounter General Surgery Cam Newman MD [address] [place], [place] [id number] [facility] Start: 03-20-2022 Influenza vaccination Flu vaccine (# 1) [facility] Start: 03-20-2020 Influenza vaccination Flu vacc ine (Season Ended) [place] Start: 12-27-2019 End: 12-27-2019 Office Visit 12/27/2019 Office Visit Advanced Laparoscopic Surgery Rosie Moody PA-C [address] [place] [address] [phone] [place] [place] [facility] Start: 12-13-2019 Hospital Encounter 12/13/2019 Hospital Encounter General Surgery Cam Newman MD [address] [place], [place] [id number] [facility] General [facility] Start: 2017 Pneumococcal 65+ yea rs Vaccine (1 - PCV) Pneumococcal 65+ years Vaccine (1 - PCV) [facility] Start: 2017 Pneumococcal 65+ yea rs Vaccine (1 of 1 - PPSV23) Pneumococcal 65+ years Vaccine (1 of 1 - PPSV23) [place] Start: 2002 Screening for malign ant neoplasm of colon Colon cancer screen colonoscopy [place], [place] Start: 2002 Shingles Vaccine (1 of 2) Tsai gles Vaccine (1 of 2) [facility] Start: 1997 Screening for malign ant neoplasm of colon [facility] Start: 1992 Diabetes screen Diabetes screen [place], [place] Start: 1992 Lipid panel [facility] Start: 1971 DTaP/Tdap/Td vaccine (1 - Tdap) DTaP/Tdap/Td vaccine (1 - Tdap) [facility] Start: 1970 Hepatitis C screening Hepatitis C sc fabio [facility] Start: 1964 Depression Screen Depression Screen [facility] Start: 1952 COVID-19 Vaccine (#1) COVID-19 Vacci ne (#1) [facility] Start: 1952 Hepatitis C screening [facility] [place] [place] End: 12-13-2019 Blood glucose - POCT Blood glucose - POCT Point of Care Testing STAT One Time for 1 Occurrences starting 12/13/2019 until 12/13/2019 [place] Payers Date Payer Category Payer Unknown [id number] 1950 Unknown [id number] 1950 Unknown [id number] 1950 Unknown [id number] Self-pay Unknown [id number] Social History Date Type Detail Facility Start: 11-04-2019 End: 11-10-2019 Tobacco smoking status NHIS Never smoker [place] Start: 11-10-2019 End: 03-28-2022 Alcohol intake Lifetime non-drinker (finding) [place] Start: 11-04-2019 History SDOH Alcohol Frequency 1 [place], [place] Start: 1950 Sex Assigned At Not on file M [place] Exposure to SARS-CoV -2 (event) Unable to assess [place] Start: 11-04-2019 Tobacco use and exposure Smokeless tobacco non-user [facility] Work Phone: Start: 03-18-2022 End: 03-28-2022 Exposure to SARS-CoV-2 (event) Not sure [facility] Clinical Notes 03-28-2022 to 07-05-2022 Kathleen Abel [...] Your Medications These medications were sent to [facility] [address] [place] [id number] Hours: Thursday to Thursday 10 am to 6 pm ondansetron 4 MG tablet oxyCODONE-acetaminophen 5-325 MG tablet DIET: Adult diet Clear liquid ACTIVITY: No heavy lifting. __ COMPLEXITY OF FOLLOW UP: [x] Moderate Complexity: follow up within 7-14 calendar days (62070) [] Severe Complexity: follow up within 7 calendar days (74474) FOLLOW UP TESTING, PENDING RESULTS OR REFERRALS AT TRANSITIONAL CARE VISIT: [] Yes [x] No PENDING STUDIES: na DISPOSITION: Home FACILITY/HOME CARE AGENCY NAME: n/a Follow up with Cam Newman MD [address] [facility] [address] [facility] [address] Schedule an appointment as soon as possible [...] DISCHARGE TIME: < 30 minutes SIGNED: Kathie Morgna MD 07/05/2022, 4:22 PM [facility] 07-05-2022 Note GENERAL SURGERY Prog ress [...] myself. A full chart review was performed. [facility] 07-04-2022 Note Patient: Mio palmer Procedure Summary Date: 07/04/22 Room / Location: [facility] Operating Room Anesthesia Start: 831 Anesthesia Stop: [...] once all PACU criteria has been met. [facility] 07-04-2022 Note Patient: Mio palmer Procedure Summary Date: 07/04/22 Room / Location: [facility] Operating Room Anesthesia Start: 0832 Anesthesia Stop: [...] start time until discharged from PACU ([id number]) [facility] Anesthesiology Smoking Abstinence [facility] 404 I completed my handoff to the receiving clinician during which we: 1. Identified the patient 2. Identified the responsible provider 3. Reviewed the pertinent medical history 4. Discussed the surgical course 5. Reviewed intra-op anesthesia management and issues during anesthesia 6. Set expectations for post-procedure period 7. Allowed opportunity for questions and acknowledgement of understanding. [facility] 07-04-2022 Note Airway Date/Time: 07/04/2022 8:48 AM Urgency: scheduled General Information and Staff Patient location during procedure: Procedural Anesthesiologist: Dayne Mello MD Resident/VEHICLE WASHER: ZACHARIAH Ballesteros CRNA Performed: VEHICLE WASHER Indications and Patient Condition Indications for airway [...] 23 Number of attempts at approach: 1 [facility] 07-04-2022 Note Peripheral Block Time Out: 07/04/2022 8:36 AM Patient location during procedure: Procedural Start time: 07/04/2022 8:36 AM End time: 07/04/2022 8:36 AM Reason for block: at surgeon's request and post-op pain management Staffing Performed: VEHICLE WASHER Resident/VEHICLE WASHER: ZACHARIAH Ladd CRNA Preanesthetic Checklist Completed: patient [...] supine Prep: ChloraPrep Patient monitoring: heart rate, lunchroom monitor, continuous pulse ox and continuous capnometry O2: [...] plane. and Local anesthetic injected without difficulty [facility] 07-04-2022 Note Advanced Laparoscopi c Surgery [...] hiatal hernia repair Proceed with hiatal hernia [facility] 07-04-2022 Note Patient: Mio palmer Procedure Information Date/Time: 07/04/22829 Procedure: LAPAROSCOPY REPAIR PARAESOPHAGEAL HERNIA INCLUDING FUNDOPLASTY WITH MESH (Abdomen) Location: [facility] Operating Room Surgeons: Cam Newman [...] Atrial premature complexes Borderline left axis deviation [facility] 06-29-2022 Note Patient: Mio palmer Procedure Information Date/Time: 06/27/22 0900 Scheduled providers: Gianna Adams RN Procedure: PAT OPTIMIZATION CALL Location: [facility] Pre-Admit Testing Relevant Problems GI (+) [...] found for this or any previous visit. [facility] 03-28-2022 History of Present illness Narrative Pt arrived to PACU from OR. Pt ID verified. Monitors applied with alarms on. Vital signs stable. documented in this encounter [employer] Phone: 03-28-2022 Hospital Discharge instructions Eva Swan [...] FoundDocuments on File Type Date Recorded Patient Ink Technician Expl anation Advance Directives and Living Will Power of Boat Worker Documents on File Type Date Recorded Patient Ink Technician Expl anation Advance Directives and Living Will Power of Boat Worker Latest Code Status on File Code Status [...] Procedures EKG 12 lead Rosie Moody PA-C [address] [place] [address] [address] [place] [address] Discharge Instructions * Instructions* Nidia Sauceda RN - 12/09/2019 Please bring your [facility] Information folder on the day of [...] sent through Care Everywhere. * Cholecystectomy: Post-op ([place] Islander) documented in this encounter* Instructions* Lexie Cunningham [...] 3:48 PM EDT 1547 up walked in [facility] diff returned to room DC'd Iv [...] DATE CREATED AUTHOR AUTHOR'S ORGANIZ ATION 01/01/2020 [facility] DATE CREATED AUTHOR AUTHOR'S ORGANIZ ATION 01/04/2020 [facility] DATE CREATED AUTHOR AUTHOR'S ORGANIZ ATION 04/29/2022 [facility] DATE CREATED AUTHOR AUTHOR'S ORGANIZ ATION 07/22/2022 [facility] [employer] [facility] Scheduled Active and Recently [...] BE BASED ON THE PRIMARY CLINICAL RECORDS. [employer] provides no warranty or guarantee of the accuracy or completeness of information in this document.
--- NOTE | 2023-08-13 12:45 | CASEMGMT ---
RN?CM?MENTAL MEASUREMENTS TEACHER?CM?to room to meet with patient for initial transition planning/care coordination?assessment.?RN?CM?introduced self and role at [facility].? Pt voices understanding and consents to?assessment?at this time.? Pt sitting up in chair in no distress at this time.? Pt is A/O at this time and answers all questions appropriately.?? Care providers, pharmacy, and demographics verified/updated at this time. PCP: Dr Carter Specialists:none Preferred Pharmacy: [facility] Retail Insurance: [facility] Prescription Benefit:?none LNOK: 7 adult children. He states no one in his family has a cell phone. He states the # listed under his name is a phone patel and a message can be left on this line. He states someone checks this a couple times a day. Living Arrangements: Lives alone in one-story home w/no steps to enter. Family lives in an adjacent house on same property. Pt is independent w/ADL's and works full-time at a wood shop. Family brings food to pt weekly and sometimes pt goes to the grocery store. Transportation: Hire drivers. DME: ? Denies using any DME. Pt will need a WW and he plans to get it from the [facility]. He will be talking w/his family about getting this today or tomorrow so he has it available upon arrival home. HHC/SNF: No hx of either. Pt wishes to discharge home and declines wanting HHC or OP therapy. Pt states he wishes to just to his own exercises at home and would be interested in handout from therapy of what exercises to do. Pt states family will be staying w/him / for at least the 1st week. CHOLO CM instructed pt to f/u with his PCP if he changes his mind about wanting HHC or OP therapy once he returns home. He voices understanding. Pt wishes to return home and states has no concerns with going home at time of discharge.? CM?to follow for any further discharge planning/needs.? Pt voices no further concerns/needs at this time.? Advised pt to ask for?CM?if any further questions/concerns/needs arise.? Voices understanding. PLAN:??Home w/family support. Dalila LONDONON?RN?CM
--- NOTE | 2023-08-13 12:45 | CASEMGMT ---
RN?CM?ACTUARIAL SCIENCE TEACHER?CM?to room to meet with patient for initial transition planning/care coordination?assessment.?RN?CM?introduced self and role at [facility].? Pt voices understanding and consents to?assessment?at this time.? Pt resting in bed in no distress at this time.? Pt is A/O at this time and answers all questions appropriately.?? Care providers, pharmacy, and demographics verified/updated at this time. PCP: Specialists: Preferred Pharmacy: Insurance: Prescription Benefit:? Living Will/HPOA:? Pt does not currently have LW/HCPOA and declines info at this time.? Pt made aware that he can contact SW as an out-pt and make appt in the future if he decides he would like to talk with someone about this or would like to utilize [facility] social work for advanced directive completion.? Given [employer] card with information and contact number. Pt expresses understanding.? States does not have LW or HCPOA .? Interested in more information but states does not want to talk with at this time to complete paperwork.? Provided information on advanced directives and given [employer] card with number to call if chooses in the future to utilize [facility] social work for advanced directive completion. Educated patient that, if patient so chooses, can come back to [facility] and meet with a SW as an outpatient to complete health care advanced directives. Patient expresses understanding. LNOK: Living Arrangements: Transportation:?Pt states drives self and states no transportation concerns at this time.? DME: ? Denies using any DME and denies needs.? States has the following DME:? Pt states no need for further DME at this time.? HHC/SNF: Pt wishes to return home and states has no concerns with going home at time of discharge.? Pt states does not smoke or drink ETOH. ?CM?to follow for home oxygen needs and any further discharge planning/needs.? Pt voices no further concerns/needs at this time.? Advised pt to ask for?CM?if any further questions/concerns/needs arise.? Voices understanding. PLAN:?? Dalila BSN?RN?CM
--- NOTE | 2023-08-13 14:22 | CASEMGMT ---
Transportation van called and states they can drive the pt home and the additional 2 family members at 1400 tomorrow. Pt updated.
[2023-08-13] MEDS: oxyCODONE 5 MG Tablet PO (14:46)
[2023-08-13] MEDS: Potassium Chloride Oral Tablet 20 MEQ 40 MEQ PO (16:00)
--- NOTE | 2023-08-13 16:38 | CHAPLAIN ---
Type of Pastoral Visit _x__ Initial Visit ___ Follow-up Visit ___ On-call Visit ___ General Patient Visit ___ Spiritual Assessment ___ Family Conference ___ Bereavement ___ Rapid Response ___ Code Blue ___ Other (describe below) Pastoral Care Referral From _x__ Patient ___ Family ___ Nurse ___ Physician ___ Yoga Teacher ___ Area Captain ___ Other (describe below) Sacrament/Intervention _x__ Active listening ___ Anointing ___ Faith ___ Bereavement ___ Communion ___ Devika exploration ___ _x__ Life review ___ Prayer ___ Reconciliation ___ Sacrament of Sick _x__ Supportive presence ___ Wedding ___ Other (describe below) Pastoral Comments patient is interactive in discussion about his fall, his surgery, his pain levels and plan for recovery; family member is with him but does not join in conversation; pt is working actively and plans to return to work of which he describes as something I will do as long as I am able ;
[2023-08-14 04:00] VITALS: BP 135/75; PULSE 58; RESP 16; TEMP 36.3; O2SAT 97
[2023-08-14 06:00] VITALS: BMI 30.2
[2023-08-14] MEDS: Ketorolac 15 MG/ML Vial IV (06:15)
[2023-08-14] MEDS: Acetaminophen 500 MG Tablet 1000 MG PO (06:15)
[2023-08-14] MEDS: 0.9% Saline Lock 10 ML Syringe IV (06:16)
[2023-08-14 06:32] LABS: Absolute Neutrophil Count 4.2 X10^3/uL (2.0-7.7); Basophil# 0.06 X10^3/uL; Basophil% 0.9 % (0-1); Eosinophil# 0.79 X10^3/uL; Eosinophils% 11.6 % (0-5); Hematocrit 36.6 % (40-54); Lymphocyte % 16.2 % (19-41); Mean Corp Hgb Conc 32.8 g/dL (32-36); Mean Corpuscular Hgb 28.4 pg (27.0-32.0); Mean Corpuscular Volume 86.7 fL (80-94); Mean Platelet Vol. 9.8 fl (6.2-12.0); Monocyte# 0.66 X10^3/uL; Monocyte% 9.7 % (0-10); NRBC Flagged by Analyzer 0 % (0-5); Neutrophil # 4.17 X10^3/uL (2.7-7.7); Neutrophil % 61.2 % (47-70); Platelet Count 132 K/mm3 (150-450); RBC Distribution Width CV 12.5 % (11.6-14.6); RBC Distribution Width SD 39.8 fl (35.1-43.9); Red Blood Count 4.22 M/mm3 (4.6-6.2); White Blood Count 6.8 K/mm3 (4.4-11.0)
[2023-08-14 07:08] LABS: Anion Gap 3 (5-15); BUN 29 mg/dL (7-18); BUN/Creat Ratio 36.7 RATIO (10-20); Calcium,Total 8.1 mg/dL (8.5-10.1); Chloride 109 mmol/L (98-107); Creatinine, Serum 0.79 mg/dL (0.70-1.30); EST Glomerular Filtration Rate 103 mL/min (>60); Est Glom Filt Rate - Afr Amer 124 mL/min (>60); Estimated Creatinine Clearance 86.83 ml/min; Glucose 105 mg/dL (74-106); Potassium 3.7 mmol/L (3.5-5.1); Sodium Level 137 mmol/L (136-145)
[2023-08-14 09:31] VITALS: BP 123/77; PULSE 57; RESP 16; TEMP 36.8; O2SAT 97
--- NOTE | 2023-08-14 10:14 | DCINST_ITS ---
Discharge Instructions Diet Discharge Diet: 2000 mg Sodium Diet Activity Discharge Activity: Return to Normal Activity Weight Bearing Status: Weight bearing as tolerated Dressing / Incision Call your doctor if you observe: Fever of 101 or Higher, Coldness, Increased Pain, Numbness or Tingling, Change in Color, Inability to urinate, Inability to have a bowel movement, Shortness of breath, Dizziness, Fainting spells, Swelling in the ankles, Chest pain, Prolonged hiccupping, Increased palpitations (irregular heartbeat) and Calf discomfort Follow Up Care When: IN 2 WEEKS Test Results: Test results from this visit will be discussed in further detail at your follow- up appointment, if applicable. Discharge Plan Admission Admit Date/Time: 08/11/23 11:45 Primary Reason for Your Visit: Left hip intertrochanteric fracture. Attending Provider: Ike Lynch Primary Care Provider: Ellis Carter Discharge Orders/Prescriptions Prescriptions: New lisinopril 5 mg Tablet 5 mg PO DAILY 30 Days Qty: 30 1RF Rx Instructions: Hold for SBP less than 130 mmHg acetaminophen 500 mg Tablet 1,000 mg PO Q8 Qty: 0 0RF Rx Instructions: Aekb-ifo-epowkmf. 1 g every 8 hourly for 1 week scheduled and then as needed for moderate to severe pain. oxycodone 5 mg Tablet 2.5 - 5 mg PO Q4H PRN PRN (Reason: Pain Score 4-10) 3 Days Qty: 10 0RF Rx Instructions: 2.5 mg for moderate pain, 4-6/10 and 5 mg for severe pain, 7-10/10 Xarelto 10 mg Tablet 10 mg PO DAILY 30 Days Qty: 30 0RF Continued metoprolol tartrate 25 MG tablet 25 mg PO BID Patient Comments: PT STATES HE TAKES 1/2 TAB IN AM AND 1/2 TAB IN PM sertraline 100 MG tablet 100 mg PO DAILY Patient Comments: PT STATE HE TAKE 1/2 TAB IN AM AND 1/2 TAB IN EVENING lorazepam 1 MG tablet 0.5 - 1 mg PO BID multivitamin [Daily Multi-Vitamin] Tablet 1 - 2 tab PO DAILY Patient Comments: PT STATES HE TAKE 1-2 TABS DAILY DEPENDING ON HOW HE FEELS garlic extract 1 tab PO DAILY Referrals / Follow Up: Ellis Carter, [Primary Care Provider] - Michael Antonio MD [Med Staff - Active Staff] - Within 2 Weeks Disposition Disposition (needs filled in before D/C Order can be placed): Home, Self Care
--- NOTE | 2023-08-14 10:22 | PCM.DC.SUM ---
Providers Date of Admission: 08/11/23 Date of Discharge: 08/14/23 Primary Care Physician: Dr. Ellis Carter DO Reason For Visit: LEFT HIP FRACTURE Diagnosis Discharge Diagnosis (1) Closed intertrochanteric fracture of left hip: Status: Acute Code(s): S72.142A - Displaced intertrochanteric fracture of left femur, initial encounter for closed fracture Qualifiers: Encounter type: initial encounter Fracture alignment: nondisplaced Qualified Code(s): S72.145A - Nondisplaced intertrochanteric fracture of left femur, initial encounter for closed fracture Plan This 72-year-old gentleman being brought by EMS after he had slipped on ice resulting into left hip intertrochanteric fracture. 1. Left impacted intertrochanteric fracture after fall: [facility] Labs reviewed. Mild leukocytosis probably reactive after fall from inflammation/pain. Orthopedic surgery Dr. Olman Oliver is consulted. Electrolytes in normal range. Glucose 106. Serum magnesium in normal range. Patient has good preoperative exercise capacity and is working actively. Patient does not have chronic heart or pulmonary conditions. No history of smoking or alcohol drink. Overall I think patient is mild to moderate perioperative risk for left hip hip surgery. 08/12: Patient is a good operative candidate for left hip surgery. No acute issues overnight. Heart rate and blood pressure is controlled. No fever. 08/13: Unclear how the patient's medications got discontinued but patient was put back on medications. Patient had mild nausea but did not like morphine therefore oxycodone started. IV Toradol 15 mg every 8 hourly scheduled. PT and OT to continue. Operative region is intact with no hematoma or swelling or bleeding. 08/14: Patient seen by orthopedic surgeon. Patient is doing good on PT.Heart rate and blood pressure in normal range. Patient is discharged oxycodone 2.5 to 5 mg every 4 hourly as needed for moderate to severe pain respectively. Total 10 tablets given. OARRS reviewed. Overdose unintentional risk score below average 90. Prescription also given for Xarelto for 30 days. Tylenol [id number] to continue. 2. Hypertension: Patient on metoprolol 25 mg twice daily. Blood pressure elevated therefore lisinopril 5 mg once daily started. Twelve-lead EKG shows normal sinus rhythm. 08/13: Blood pressure is controlled. 08/14: Blood pressure was high. Patient came to ER currently normal. Prescription for lisinopril 5 mg daily given with holding parameters. 3. Mild anxiety and depression: Patient on lorazepam and sertraline at home, continued. DVT prophylaxis moderate risk: Xarelto. Discharge medication reconciliation done. Discharge follow-up instructions completed. Discharge process discussed with the patient and all questions were answered to patient's satisfaction. Follow with PCP in 1 to 2 weeks Total time spent, exact 35 minutes on discharge meds reconciliation, examination, coordination of care with nurses and ancillary staff, review of imaging and blood test and discussion with the patient on follow-up instructions. Living will/advanced directive/end of life care: Patient does have living will or advanced directive. He is power of neurology tech for all this two elder sons. After discussion of benefits/risks procedures involved with full code, DNR CC arrest and DNR CC, the patient opted for full code but does not want to be dependent on ventilator for long time. Patient does want artificial life support including intubation, tube feed, ventilator and/chest compression, central venous catheter, vasopressor and DC shock if needed Laboratory Results 08/14/23 05:46: WBC 6.8, RBC 4.22 L, Hgb 12.0 L, Hct 36.6 L, MCV 86.7, MCH 28.4, MCHC 32.8, RDW Std Deviation 39.8, RDW Coeff of Joesph 12.5, Plt Count 132 L, MPV 9.8, Immature Gran % (Auto) 0.400, Neut % (Auto) 61.2, Lymph % (Auto) 16.2 L, [place] % (Auto) 9.7, Eos % (Auto) 11.6 H, Baso % (Auto) 0.9, Absolute Neuts (auto) 4.2, Absolute Lymphs (auto) 1.10, Nucleated RBC % 0, Sodium 137, Potassium 3.7, Chloride 109 H, Carbon Dioxide 25.0, Anion Gap 3 L, BUN 29 H, Creatinine 0.79, Estim Creat Clear Calc 86.83, Est GFR (MDRD) Af Amer 124, Est GFR (MDRD) Non-Af 103, BUN/Creatinine Ratio 36.7 H, Glucose 105, Calcium 8.1 L Clinical Impression(s) from Imaging Studies Hip/Pelvis X-Ray 08/11/23 10:18 IMPRESSION: Impacted left intertrochanteric fracture. Knee X-Ray 08/11/23 10:21 IMPRESSION: Degenerative arthrosis. Electronically Signed: Denis Yarbrough MD at 11:28 EST , Chest X-Ray 08/11/23 10:45 IMPRESSION: No acute abnormality is seen. Electronically Signed: Denis Yarbrough MD at 11:14 EST , Medications at Discharge Home Medications lorazepam 1 mg tablet 0.5 - 1 mg PO BID ANXIETY 05/09/20 metoprolol tartrate 25 mg tablet 25 mg PO BID BLOOD PRESSURE 05/09/20 sertraline 100 mg tablet 100 mg PO DAILY STRESS 05/09/20 garlic extract 1 tab PO DAILY 08/11/23 multivitamin (Daily Multi-Vitamin tablet) 1 - 2 tab PO DAILY VITAMIN 08/11/23 acetaminophen 500 mg tablet 1,000 mg (2 x 500 mg) PO Q8 #0 tabs 08/14/23 lisinopril 5 mg tablet 5 mg PO DAILY 1 month #30 tabs 08/14/23 oxycodone 5 mg tablet 2.5 - 5 mg (0.5 - 1 x 5 mg) PO Q4H PRN PRN Pain Score 4-10 3 days #10 tabs 08/14/23 rivaroxaban 10 mg tablet (Xarelto) 10 mg PO DAILY 30 days #30 tabs 08/14/23 Physical Exam Narrative Seen and examined. Patient's son present in the room. Patient participated in physical therapy. Did well. Ready for discharge. Patient sitting up on the chair. Physical exam General: Alert, Oriented x3, Cooperative HEENT: Atraumatic, PERRLA, EOMI, Normocephalic Oral: Oral mucosa moist. No Gingival or Mucosal Lesions/ Ulcerations Neck: Supple, No JVD, Negative Carotid Bruits Lungs: Air entry diminished in bilateral lung bases. No crepitation/rhonchi Cardiovascular: Regular rate, Regular Rhythm, Normal S1, Normal S2, No murmurs Abdomen: Bowel Sounds Present, Soft, Non Tender, Non-Distended : No renal angle tenderness. No suprapubic tenderness. Extremities: No edema, Capillary Refill Less than 3 Seconds Skin: Operative surgical dressing is dry. No open drainage or bleeding or hematoma. Musculoskeletal: Mild tenderness present over left hip region. No Tenderness to Palpation of other joints or Extremities Neurological: Cranial nerves II-XII grossly intact, DTR 2+/4. No acute focal neurological deficit. Psych/Mental Status: Normal Affect, Appropriate. Weight / BMI Weight Weight: 188 lb 7.924 oz Body Mass Index (BMI) 30.2 ABG / Lab / Microbiology Data 08/14/23 05:46 08/14/23 05:46 Laboratory: Laboratory Results - last 24 hr 08/14/23 05:46: WBC 6.8, RBC 4.22 L, Hgb 12.0 L, Hct 36.6 L, MCV 86.7, MCH 28.4, MCHC 32.8, RDW Std Deviation 39.8, RDW Coeff of Joesph 12.5, Plt Count 132 L, MPV 9.8, Immature Gran % (Auto) 0.400, Neut % (Auto) 61.2, Lymph % (Auto) 16.2 L, [place] % (Auto) 9.7, Eos % (Auto) 11.6 H, Baso % (Auto) 0.9, Absolute Neuts (auto) 4.2, Absolute Lymphs (auto) 1.10, Nucleated RBC % 0, Sodium 137, Potassium 3.7, Chloride 109 H, Carbon Dioxide 25.0, Anion Gap 3 L, BUN 29 H, Creatinine 0.79, Estim Creat Clear Calc 86.83, Est GFR (MDRD) Af Amer 124, Est GFR (MDRD) Non-Af 103, BUN/Creatinine Ratio 36.7 H, Glucose 105, Calcium 8.1 L D/C Instructions Discharge Diet: 2000 mg Sodium Diet Weight Bearing Status: Weight bearing as tolerated Call your doctor if you observe: Fever of 101 or Higher, Coldness, Increased Pain, Numbness or Tingling, Change in Color, Inability to urinate, Inability to have a bowel movement, Shortness of breath, Dizziness, Fainting spells, Swelling in the ankles, Chest pain, Prolonged hiccupping, Increased palpitations (irregular heartbeat) and Calf discomfort When: IN 2 WEEKS Meaningful Use Info Meaningful Use Diagnoses (Choose all that apply): None applicable Discharge Plan Admission Admit Date/Time: 08/11/23 11:45 Primary Reason for Your Visit: Left hip intertrochanteric fracture. Attending Provider: Ike Lynch Primary Care Provider: Ellis Carter Discharge Orders/Prescriptions Prescriptions: New lisinopril 5 mg Tablet 5 mg PO DAILY 30 Days Qty: 30 1RF Rx Instructions: Hold for SBP less than 130 mmHg acetaminophen 500 mg Tablet 1,000 mg PO Q8 Qty: 0 0RF Rx Instructions: [id number]. 1 g every 8 hourly for 1 week scheduled and then as needed for moderate to severe pain. oxycodone 5 mg Tablet 2.5 - 5 mg PO Q4H PRN PRN (Reason: Pain Score 4-10) 3 Days Qty: 10 0RF Rx Instructions: 2.5 mg for moderate pain, 4-6/10 and 5 mg for severe pain, 7-10/10 Xarelto 10 mg Tablet 10 mg PO DAILY 30 Days Qty: 30 0RF Continued metoprolol tartrate 25 MG tablet 25 mg PO BID Patient Comments: PT STATES HE TAKES 1/2 TAB IN AM AND 1/2 TAB IN PM sertraline 100 MG tablet 100 mg PO DAILY Patient Comments: PT STATE HE TAKE 1/2 TAB IN AM AND 1/2 TAB IN EVENING lorazepam 1 MG tablet 0.5 - 1 mg PO BID multivitamin [Daily Multi-Vitamin] Tablet 1 - 2 tab PO DAILY Patient Comments: PT STATES HE TAKE 1-2 TABS DAILY DEPENDING ON HOW HE FEELS garlic extract 1 tab PO DAILY Referrals / Follow Up: Ellis Carter DO [Primary Care Provider] - Michael Antonio MD [Med Staff - Active Staff] - Within 2 Weeks Disposition Disposition (needs filled in before D/C Order can be placed): Home, Self Care Charges/Coding Visit Charges Inpatient E&M: 75984 Disch Hosp >30min
[2023-08-14] MEDS: Lisinopril 5 MG Tablet PO (10:51)
[2023-08-14] MEDS: Rivaroxaban 10 MG Tablet PO (10:51)
[2023-08-14] MEDS: oxyCODONE 5 MG Tablet PO (10:51)
[2023-08-14] MEDS: Sertraline 100 MG Tablet PO (10:52)
--- NOTE | 2023-08-14 10:54 | PN.ORTHO_ITS ---
Subjective Subjective Postop day 2 status post left hip gamma nailing. Patient doing well. Sitting on chair and having breakfast. Worked with PT yesterday and ambulated. Feels much better in terms of left hip pain. Weightbearing is slightly painful. Objective Data Objective Data Vital Signs: Vital Signs Temp Pulse Resp BP Pulse Ox O2 Del Method O2 Flow Rate 98.2 F 57 L 16 123/77 H 97 Room Air 3 08/14/23 09:31 08/14/23 09:31 08/14/23 09:31 08/14/23 09:31 08/14/23 09:31 08/14/23 09:31 08/12/23 15:00 Oxygen Flow Rate (L/min) 3 Oxygen Delivery Method Room Air Weight: 188 lb 7.924 oz Body Mass Index (BMI) 30.2 Intake & Output: Intake and Output for Last 24 Hours 08/12/23 08/13/23 08/14/23 23:59 23:59 23:59 Intake Total 1160 / 1160 488.5 / 488.5 Output Total 1600 / 2125 1225 / 1225 250 / 250 Balance -440 / -965 -736.5 / -736.5 -250 / -250 Lab / Micro Data 08/14/23 05:46 08/14/23 05:46 Labs: Laboratory Results - last 24 hr 08/14/23 05:46: WBC 6.8, RBC 4.22 L, Hgb 12.0 L, Hct 36.6 L, MCV 86.7, MCH 28.4, MCHC 32.8, RDW Std Deviation 39.8, RDW Coeff of Joesph 12.5, Plt Count 132 L, MPV 9.8, Immature Gran % (Auto) 0.400, Neut % (Auto) 61.2, Lymph % (Auto) 16.2 L, [place] % (Auto) 9.7, Eos % (Auto) 11.6 H, Baso % (Auto) 0.9, Absolute Neuts (auto) 4.2, Absolute Lymphs (auto) 1.10, Nucleated RBC % 0, Sodium 137, Potassium 3.7, Chloride 109 H, Carbon Dioxide 25.0, Anion Gap 3 L, BUN 29 H, Creatinine 0.79, Estim Creat Clear Calc 86.83, Est GFR (MDRD) Af Amer 124, Est GFR (MDRD) Non-Af 103, BUN/Creatinine Ratio 36.7 H, Glucose 105, Calcium 8.1 L Physical Exam Narrative Exam of the left hip shows sanguinous gauze dressing. No obvious swelling or significant tenderness. Distal neurovascular exam is intact. Assessment & Plan Assessment/Plan (1) Closed intertrochanteric fracture of left hip: QUALIFIERS: Encounter type: initial encounter Fracture alignment: nondisplaced Qualified Code(s): S72.145A - Nondisplaced intertrochanteric fracture of left femur, initial encounter for closed fracture PLAN: Plan Patient doing well postop day 2 status post left hip intertrochanteric fracture fixed with gamma nailing. Discharge for PT OT recs. Continue PT OT. Weightbearing as tolerated. Okay to change dressing if saturated prior to discharge. Keep dressing clean and dry. Follow-up with me in 2 weeks in ortho clinic.
[2023-08-14 11:08] VITALS: BP 108/68; PULSE 65
[2023-08-14] MEDS: Metoprolol Tartrate 25 MG Tablet PO (11:08)
--- NOTE | 2023-08-14 11:13 | PHA.DC.MC.R ---
Pharmacy [facility] has performed discharge medication reconciliation and counseling for this patient. The patient's discharge medication list was reviewed for discrepancies and discrepancies were resolved. The patient was counseled on the following discharge medications and changes in medications for homegoing were reviewed. The Reason for Use, instructions for use, and potential side effects were reviewed for all new medications. The patient's questions regarding all of their medications were answered. 1. Lisinopril 5 mg PO daily 2. Acetaminophen 1000 mg PO Q8H x 7 days, then PRN thereafter 3. Oxycodone 2.5-5 mg PO Q4H PRN pain 4. Rivaroxaban 10 mg PO daily The patient was able to verbally demonstrate an understanding of their discharge medications. Medications at Discharge Home Medications lorazepam 1 mg tablet 0.5 - 1 mg PO BID ANXIETY 05/09/20 metoprolol tartrate 25 mg tablet 25 mg PO BID BLOOD PRESSURE 05/09/20 sertraline 100 mg tablet 100 mg PO DAILY STRESS 05/09/20 garlic extract 1 tab PO DAILY 08/11/23 multivitamin (Daily Multi-Vitamin tablet) 1 - 2 tab PO DAILY VITAMIN 08/11/23 acetaminophen 500 mg tablet 1,000 mg (2 x 500 mg) PO Q8 #0 tabs 08/14/23 lisinopril 5 mg tablet 5 mg PO DAILY 1 month #30 tabs 08/14/23 oxycodone 5 mg tablet 2.5 - 5 mg (0.5 - 1 x 5 mg) PO Q4H PRN PRN Pain Score 4-10 3 days #10 tabs 08/14/23 rivaroxaban 10 mg tablet (Xarelto) 10 mg PO DAILY 30 days #30 tabs 08/14/23
--- NOTE | 2023-08-14 11:17 | CASEMGMT ---
Addendum entered by Cecille Newman 08/14/23 11:22: Pt states his walker from the warehouse is already at his home. States his brother picked this up. Original Note: Pt, pt family, pt RN, and Dr. Lynch made aware that the pt has a scheduled time through the hospital van for 1400 this afternoon. Pt and pt family is agreeable. [facility] called and they state the pt Xarelto will cost 510$ and they cannot provide any sort of discount. The pt updated at this time and they state this is OK and they will write a check for the medication. Pt also asks if they can use the hospital van for his f/u appt in 2 weeks. Pt educated this is possible and given a handout with a phone number to call. Pt denies further needs and is ready for DC today.
[2023-08-14 12:58] VITALS: BP 108/68; PULSE 65; RESP 16; TEMP 36.9; O2SAT 98
== END 2023-08-14 13:54 | disposition home or self-care (01) | DRG 482 ==
LOC: ED 11:54 → MS3 13:13
PROVIDERS: Orthopaedic Surgery Orthopaedic Surgery of the Spine; Admitting Provider Internal Medicine; Emergency Provider Emergency Medicine; PCP Family Medicine; Referring Provider Internal Medicine; Visit Provider Internal Medicine
PROC: 0QS736Z Reposition Left Upper Femur with Intramedullary Internal Fixation Device, Percutaneous Approach (ICD-10-PCS; CPT 27245; principal; 2023-08-12 11:15)
DX: S72.145A Nondisplaced intertrochanteric fracture of left femur, initial encounter for closed fracture (principal); F32.A Depression, unspecified; I10 Essential (primary) hypertension; W19.XXXA Unspecified fall, initial encounter; M19.90 Unspecified osteoarthritis, unspecified site; F41.9 Anxiety disorder, unspecified; Z66 Do not resuscitate; Z51.5 Encounter for palliative care
CPT/HCPCS: 36415; 71045; 73501; 73502; 73560; 76000; 80048; 83735; 85025; 85610; 85730; 86850; 86900; 86901; 93005; 94668; 97162; 97166; 99252; 99284; C1776; J7030; J7120; A4216; G0463; J2405

== ENCOUNTER → 2024-02-16 | Outpatient (CLI) | payer SELFPAY, OTHER ==
--- NOTE | 2024-02-16 08:16 | CT_ITS ---
CT RIGHT LOWER EXTREMITY WITH 3-D IMAGING CLINICAL INDICATION: Templating for TKA TECHNIQUE: Axial CT images of the right lower extremity (including right hip, right knee, and right ankle) was performed without IV contrast material. Coronal and sagittal reformats were provided. The protocol utilizes one or more of the following dose reduction techniques: automated exposure control, adjustment of mA and/or kV according to patient size, and/or use of iterative reconstruction technique. RADIATION DOSAGE (If Supplied By Facility): CTDIvol = ( 18.76 ) mGy, DLP = ( 1424.80 ) mGycm COMPARISON: Left knee radiographs dated 11/11/2023. FINDINGS: Bones: There is mild degenerative arthrosis of the pubic symphysis and right hip joint. There is moderate degenerative arthrosis of the medial femorotibial compartment with joint space narrowing, marginal osteophyte formation, and subchondral sclerosis. There is mild degenerative arthrosis of the patellofemoral and lateral femorotibial compartments of the left knee with mild marginal osteophyte formation. Osseous structures are intact without evidence of fracture or dislocation. No lytic or blastic osseous masses. Soft Tissues: There is a small to moderate right knee joint effusion. There is mild subcutaneous soft tissue edema along the anterior aspect of the right knee. The deep soft tissue structures are unremarkable. There are atherosclerotic calcifications. 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 Small to moderate right knee joint effusion. Electronically Signed: Jeromy Henriquez MD at 12:41 EDT ,
--- NOTE | 2024-02-16 08:16 | CT_ITS ---
CT LEFT LOWER EXTREMITY WITH 3-D IMAGING CLINICAL INDICATION: Templating for TKA. TECHNIQUE: Axial CT images of the left lower extremity (including left hip, left knee, and left ankle) was performed without IV contrast material. Coronal and sagittal reformats were provided. The protocol utilizes one or more of the following dose reduction techniques: automated exposure control, adjustment of mA and/or kV according to patient size, and/or use of iterative reconstruction technique. RADIATION DOSAGE (If Supplied By Facility): CTDIvol = ( 18.34 ) mGy, DLP = ( 1374.27 ) mGycm COMPARISON: Left knee radiographs dated 11/11/2023. FINDINGS: Bones: There is an intramedullary nail in the left proximal femur with left hip screw in place. There is mild degenerative arthrosis of the left hip joint and pubic symphysis. There is severe degenerative arthrosis of the medial femorotibial compartment of the left knee with joint space narrowing, marginal osteophyte formation, and subchondral sclerosis/cyst formation on both sides of the joint. There is mild degenerative arthrosis of the patellofemoral and lateral femorotibial compartments of the left knee. Osseous structures are intact without evidence of fracture or dislocation. No lytic or blastic osseous masses. Soft Tissues: There is a moderate left knee joint effusion, containing a 1.5 cm ossified loose body (axial series 3 image 225). There is mild prepatellar soft tissue edema. The deep soft tissue structures are unremarkable. CT/Extremity Lower without Contra IMPRESSION: Tricompartment degenerative arthrosis of the left knee joint, most severe in the medial femorotibial compartment. Moderate left knee joint effusion, containing a 1.5 cm ossified loose body. Electronically Signed: Jeromy Henriquez MD at 12:35 EDT ,
== END | disposition home or self-care (01) ==
PROVIDERS: PCP Family Medicine; Referring Provider Orthopaedic Surgery; Visit Provider Orthopaedic Surgery
DX: M17.0 Bilateral primary osteoarthritis of knee (principal)
CPT/HCPCS: 73700

== ENCOUNTER 2024-03-01 15:37 | Inpatient (IN) | payer SELFPAY, OTHER ==
--- NOTE | 2024-02-16 10:14 | EKG12_ITS ---
Test Reason : PREOP Blood Pressure : / mmHG Vent. Rate : 057 BPM Atrial Rate : 057 BPM P-R Int : 156 ms QRS Dur : 082 ms QT Int : 446 ms P-R-T Axes : 004 -33 -23 degrees QTc Int : 434 ms Sinus bradycardia Left axis deviation Inferior infarct (cited on or before 11-AUG-2023) Abnormal ECG Confirmed by HAL THOMAS, ISH ([id number]), technical writer and editor VANNA TEJEDA ([id number]) on 02/19/2024 10:13:42 AM Referred By: Carter Hunter Confirmed By:SHANTE HONG MD
[2024-02-16 10:43] LABS: Absolute Lymphocyte Count 1.18 X10^3/uL (0.83-4.51); Absolute Neutrophil Count 4.7 X10^3/uL (2.0-7.7); Basophil# 0.03 X10^3/uL; Basophil% 0.5 % (0-1); Eosinophil# 0.19 X10^3/uL; Eosinophils% 2.9 % (0-5); Hematocrit 39.7 % (40-54); Hemoglobin 13.2 g/dL (13.0-16.5); Lymphocyte # 1.18 X10^3/ul (0.83-4.51); Mean Corp Hgb Conc 33.2 g/dL (32-36); Mean Corpuscular Hgb 28.9 pg (27.0-32.0); Mean Corpuscular Volume 86.9 fL (80-94); Mean Platelet Vol. 9.5 fl (6.2-12.0); Monocyte# 0.45 X10^3/uL; Monocyte% 6.8 % (0-10); NRBC Flagged by Analyzer 0 % (0-5); Neutrophil % 71.5 % (47-70); Platelet Count 169 K/mm3 (150-450); RBC Distribution Width CV 12.8 % (11.6-14.6); RBC Distribution Width SD 39.9 fl (35.1-43.9); Red Blood Count 4.57 M/mm3 (4.6-6.2); White Blood Count 6.6 K/mm3 (4.4-11.0)
[2024-02-16 11:00] LABS: Prothrombin Time (Protime)PT. 13.6 SECONDS (11.7-14.9)
[2024-02-16 11:07] LABS: Anion Gap 5 (5-15); BUN 18 mg/dL (7-18); BUN/Creat Ratio 21.8 RATIO (10-20); Calcium,Total 8.8 mg/dL (8.5-10.1); Chloride 105 mmol/L (98-107); Creatinine, Serum 0.82 mg/dL (0.70-1.30); EST Glomerular Filtration Rate 98 mL/min (>60); Est Glom Filt Rate - Afr Amer 118 mL/min (>60); Glucose 98 mg/dL (74-106); Sodium Level 139 mmol/L (136-145)
[2024-02-16 11:12] LABS: Magnesium 2.1 mg/dL (1.6-2.6)
[2024-02-16 11:13] LABS: Hemoglobin A1c 5.3 % (3.8-5.6)
[2024-02-17 05:07] LABS: Fructosamine 235 umol/L (0-285)
[2024-03-01] VITALS (13 sets, daily range): BP systolic 90–165; BP diastolic 58–97; PULSE 56–75; RESP 12–16; TEMP 36.1–37.1; O2SAT 93–100; BMI 29.9
--- NOTE | 2024-03-01 09:06 | PCM.PRE.AN2 ---
ASA Classification* ASA Classification ASA Classification: 2 Assessment & Plan Anesthesia* Anesthesia Assessment Anesthesia Assessment: Discussed sedation and/or anesthesia options, risks, benefits, and alternatives with patient/parents/legal guardian/POA. Questions invited. The patient/parents/legal guardian/POA seems to understand and agrees to proceed with anesthesia plan. Reviewed the physical assessment, medical history, allergy history and patient home medications list prior to surgery/procedure/anesthetic and documented any changes. Performed airway and anesthesia risk assessments. Anesthesia Type Anesthesia Type: General (see written pre anesthesia record for full assessment) Anesthesia Focused Assessment* Airway Assessment Mouth opens: >3 cm Mallampati Score: II Focused Labs Anesthesia Preop lab: CBC WBC 6.6 K/mm3 (4.4-11.0) 02/16/24 09:59 RBC 4.57 M/mm3 (4.6-6.2) L 02/16/24 09:59 Hgb 13.2 g/dL (13.0-16.5) 02/16/24 09:59 Hct 39.7 % (40-54) L 02/16/24 09:59 Plt Count 169 K/mm3 (150-450) 02/16/24 09:59 CHEMISTRY Potassium 4.0 mmol/L (3.5-5.1) 02/16/24 09:59 Sodium 139 mmol/L (136-145) 02/16/24 09:59 Magnesium 2.1 mg/dL (1.6-2.6) 02/16/24 09:59 BUN 18 mg/dL (7-18) 02/16/24 09:59 Creatinine 0.82 mg/dL (0.70-1.30) 02/16/24 09:59 Glucose 98 mg/dL (74-106) 02/16/24 09:59 COAG PT 13.6 SECONDS (11.7-14.9) 02/16/24 09:59 Pre-Assessment Diagnosis/Proposed Procedure Planned Operative Procedure(s): (B) ERAS Bilateral Total Knee Replacement Robotic Arm Assisted Anesthesia History Anesthesia History - director validation: Anesthesia History - director validation Hx Hospitalization Yes: 07/2023 - HIP FX 02/18/24 13:37 Any Problems With Anesthesia No 02/18/24 13:37 Cholinesterase deficiency No 02/18/24 13:37 You/Your Family Experience No 02/18/24 13:37 fever (hyperthermia) with Relationship Recent Exposure to Contagious No 11/11/23 09:32 Disease Does patient have nerve No 02/18/24 13:37 stimulator Patient instructed to have device shut off --Does patient have Pacemaker or ICD? When Was Last Pacemaker Check QUESTION #4 FULL TEXT: You/Your Family Experience fever (hyperthermia) with Anesthesia Last Oral Intake Last Oral intake: Last Oral Intake NPO since Meds taken in AM with sips of water? Meds patient instructed to take am of surgery PONV PONV - director validation: PONV - director validation Female No 02/18/24 13:37 HX of Motion Sickness No 02/18/24 13:37 HX of N/V After Surgery No 02/18/24 13:37 Non-Smoker Yes 02/18/24 13:37 Duration of Surgery greater Yes 02/18/24 13:37 than 60 minutes Number of Risk Factors 2 02/18/24 13:37 PONV Score Moderate Risk 02/18/24 13:37 Height & Weight Height & Weight: Anesthesia: Height & Weight Height 5 ft 6 in 11/20/23 09:28 Respiratory Assessment Respiratory Assessment - director validation: Respiratory Tract Infection Hx - director validation Hx Respiratory Tract Infection No 02/18/24 13:37 STOP Sleep Apnea STOP Sleep Apnea - director validation: STOP Sleep Apnea - director validation Hx Hypertension Yes: CONTROLLED WITH MED 02/18/24 13:37 Hx Sleep Apnea No 02/18/24 13:37 CPAP BIPAP Do you snore loudly (louder No 02/18/24 13:37 than talking or can be heard Do you often feel tired/ No 02/18/24 13:37 fatigued/ sleepy during daytime? Has anyone observed you stop No 02/18/24 13:37 breathing during sleep? STOP Results Negative 02/18/24 13:37 QUESTION #5 FULL TEXT : Do you snore loudly (louder than talking or can be heard through closed doors)? 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 Specify any problems Hx of Preganancy in last 3 N/A 02/18/24 13:37 Months Nurse Filling Out Transfusion NBUCHER 02/18/24 13:37 & Questions: Date: 02/18/24 02/18/24 13:37 Time: 13:40 02/18/24 13:37 Patient unable to answer at this time (ie. confused, unrespo /Reproduction History /Reproductive History - director validation: /Reproductive Hx- director validation Hx Now Gestational Age (in weeks): EDC: Hx Hx Para Hx Section SAB No 02/18/24 13:37 Active Medications Active Medications: Current Medications Generic Name Dose Route Start Last Admin Trade Name Freq PRN Reason Stop Dose Admin Acetaminophen 1,000 mg 03/01/24 10:45 Acetaminophen 500 Mg Tablet PO 03/01/24 10:46 X1 ONE Celecoxib 400 mg 03/01/24 10:45 Celecoxib 200 Mg Capsule PO 03/01/24 10:46 X1 ONE Dexamethasone Sodium Phosphate 10 mg 03/01/24 10:45 Dexamethasone 10 Mg/Ml Vial IV 03/01/24 10:46 X1 ONE Gabapentin 600 mg 03/01/24 10:45 Gabapentin 600 Mg Tablet PO 03/01/24 10:46 X1 ONE Cefazolin Sodium 2 gm/ Sodium 110 mls @ 150 mls/hr 03/01/24 10:45 Chloride IV 03/01/24 11:28 PREOP ONE Tranexamic Acid 1,000 mg/ 110 mls @ 660 mls/hr 03/01/24 10:45 Sodium Chloride IV 03/01/24 10:54 X1 ONE Tranexamic Acid 1,000 mg/ 110 mls @ 660 mls/hr 03/01/24 10:45 Sodium Chloride IV 03/01/24 10:54 X1 ONE Lactated Ringer's 1,000 mls @ 125 mls/hr 03/01/24 10:45 IV 03/01/24 18:44 .Q8H CHARIS Lactated Ringer's 1,000 mls @ 15 mls/hr 03/01/24 08:30 IV .Q48H CHARIS Insulin Human Lispro 1 - 6 unit 03/01/24 10:45 Insulin Lispro 100 Unit/Ml Insuln.Pen SC Q4H PRN PRN BG>/= 180, SEE PROTOCOL Protocol Scopolamine HBr 1 patch 03/01/24 10:45 Scopolamine 1mg/72hr Patch TD 03/01/24 10:46 X1 ONE PFSH Medical History Wears glasses Wears dentures Ambulates with cane Arthritis Migraine headache Non-smoker Closed intertrochanteric fracture of left hip Hypertension Anxiety Home Medications ?Medication ?Instructions ?Recorded ?Last Taken ?Type lorazepam 1 mg tablet 0.5 - 1 mg PO BID ANXIETY 05/09/20 08/11/23 History sertraline 100 mg tablet 100 mg PO DAILY STRESS 05/09/20 08/11/23 History garlic extract 1 tab PO DAILY SUPPLEMENT 08/11/23 08/11/23 History multivitamin (Daily Multi-Vitamin 1 - 2 tab PO DAILY VITAMIN 08/11/23 08/10/23 History tablet) lisinopril 5 mg tablet 5 mg PO DAILY HTN 1 month #30 tabs 08/14/23 Unknown Rx Allergy/AdvReac Type Severity Reaction Status Date / Time No Known Allergies Allergy Verified 03/01/24 08:28 Surgical History History of hip surgery Social History Smoking Status: Never smoker Review of Systems (Anesthesia) ROS Narrative System reviewed and no additional complaints, except as documented.
[2024-03-01] MEDS: Lactated Ringers 1,000 ML 15 ML IV (09:09)
[2024-03-01] MEDS: Celecoxib 200 MG Capsule 400 MG PO (09:09)
[2024-03-01] MEDS: Scopolamine 1mg/72hr Patch 1 PATCH TD (09:09)
[2024-03-01] MEDS: Acetaminophen 500 MG Tablet 1000 MG PO ×2 (09:09→21:35)
[2024-03-01] MEDS: Magnesium 1 GM over 15 mins IV (09:09)
[2024-03-01] MEDS: Gabapentin 600 MG Tablet PO (09:09)
--- NOTE | 2024-03-01 09:57 | HP.PCM_ITS ---
History and Physical Date of Admission: 03/01/24 [facility] [address] [place] [address] OFFICE VISIT Date of Service: 02/19/24 MR#: [id number] Acct: [id number] Name: MILENA LOPES Rep #: [id number] : 1950 Provider: Dr. Carter Hunter DO Age/Sex: 73/M [place] [facility] [place] Status: Signed Intake Vital Signs 11/19/2408:28 Height 5 ft 6 in Weight: 188 lb 8 oz BMI 30.4 Intake Visit Reasons: bilateral knee Accompanied by: Self Is patient in pain?: Yes Pain scale (1-10): 6 Allergies No Known Allergies Allergy (Verified 02/19/24 09:14) Medications ?Medication ?Instructions ?Recorded ?Confirmed ?Type lorazepam 1 mg tablet 0.5 - 1 mg PO BID ANXIETY 05/09/20 02/19/24 History sertraline 100 mg tablet 100 mg PO DAILY STRESS 05/09/20 02/19/24 History garlic extract 1 tab PO DAILY SUPPLEMENT 08/11/23 02/19/24 History multivitamin (Daily Multi-Vitamin 1 - 2 tab PO DAILY VITAMIN 08/11/23 02/19/24 History tablet) lisinopril 5 mg tablet 5 mg PO DAILY HTN 1 month #30 tabs 08/14/23 02/19/24 Rx Have you fallen in the past year?: Yes PFSH Medical History Wears glasses Wears dentures Ambulates with cane Arthritis Migraine headache Non-smoker Closed intertrochanteric fracture of left hip Hypertension Anxiety Surgical History History of hip surgery Social History Smoking Status: Never smoker HPI bilateral knee Details: This documentation accurately reflects the service provided and the decisions made by me, Dr. Carter Hunter DO 02/19/24 0747. Part of today?s visit was documented by Katharina CARDENAS , acting as scribe. MILENA LOPES is a 73 year old M here today for Bilateral knee Iovera treatment. Patient states he is stiff today and he took a Tylenol before coming to today visit. Patient does have the drinks and soap for the surgery and he has a walker at home for the surgery. Patient signed the consent for the surgery. Patient went Tues (02/16/24) for his CT and he had a ekg done and blood work. Ortho Exam General General: Yes no acute distress and Yes well groomed Neurologic: Yes alert and Yes oriented x3 Psychologic: Yes reasonable and appropriate Right Knee Skin/Wound: Yes CDI, No erythema, No ecchymosis and No swelling Knee ROM: No ROM-Extension -20 to 0 (-6) and No ROM-Flexion 0-140 (83) Examination: Yes Med jt line tenderness, No Lat jt line tenderness, Yes Crepitus and No Will's Test Stability: NML: Anterior Drawer, NML: Posterior Drawer, NML: Valgus 30 and NML: Varus 30 Patella Translation: 1 Patella Grind: Yes KNEE: Pitting edema upper 3rd of leg, swelling not coming from his knee. The iovera treatment line sustained frostbite from the procedure and there is superficial scabbing noted on the medial side of the treatment line very low intensity erythema surrounding not consistent with cellulitis but more from the procedure itself. Left Knee Skin/Wound: No ecchymosis, No erythema and No swelling Homans Sign: No Knee ROM: No ROM-Extension -20 to 0 (5) and No ROM-Flexion 0-140 (80) Examination: Yes med jt line tenderness, No Lat jt line tenderness and Yes Crepitus Stability: NML: Anterior Drawer, NML: Posterior Drawer, NML: Valgus 30 and NML: Varus 30 Patella Translation: 1 Left Foot/Ankle ANKLE: Patient does have some shinny skin and swelling in his ankle. Office Procedures Iovera Procedure Details:: Preoperative diagnosis : Bilateral primary osteoarthritis of knee Postoperative diagnosis: Same Procedure: Cryotherapy with Iovera device to anterior femoral cutaneous nerve and 2 branches of the infrapatellar saphenous nerve III nerves in total Description of procedure: Patient was brought back to the procedure room the operative extremity was identified by both patient and physician. The PIP flexion crease was measured to the midpoint of the patella and this distance was divided in 3 resulting in 10 cm location proximal to the midpoint of the patella. This line was extended medial and lateral to the extent of the edges of the patella. This was our treatment line for the anterior femoral cutaneous nerve. A second treatment line was made 5 cm medial to the inferior pole of the patella and 5 cm distally. The leg was prepped with alcohol and Betadine. Lidocaine with epi was used along the treatment lines. Using the Iovera device treatment lines were treated with 1 minute cycles. Reproduction of paresthesias was monitored in the area of nerve distribution. Once all 3 nerves were treated across the 2 treatment lines patient was cleaned and a light dressing with 4 x 4 and Stefano wrap was applied. Patient tolerated the procedure without complication. Supplemental Info 11/11/2023 x-ray right knee: Advanced knee arthrosis with varus deformity [id number] medial compartment, large bone spurring noted in the trochlea 11/11/2023 x-ray left knee: Severe medial compartment arthrosis noted worse on flexion view large trochlear spurring 11/11/2023 x-ray left hip: Status post cephalomedullary fixation Coding Level of Care Code Attention Yoan Diagnoses Primary osteoarthritis of both knees M17.0 Osteoarthritis type: primary Assessment and Plan Assessment and Plan (1) Degenerative arthritis of knee, bilateral: Status: Acute Qualifiers: Osteoarthritis type: primary Qualified Code(s): M17.0 - Bilateral primary osteoarthritis of knee Orders: Orders Iovera Today M17.0 - Bilateral primary osteoarthritis of knee Plan Iovera performed today bilateral knee Spoke with Patient about his edema in his leg and its best that he elevates his legs at night and when ever he can. Spoke with Patient the importance of ROM and Stretching his knee before and after surgery to optimize his outcome. Once again reiterated that having a bilateral total knee arthroplasty in the same day is a lot of surgery and will come with a significant amount of pain and swelling . advise when he isn't walking to elevate his legs at least to neutral position. All questions answered. Patient in agreement of plan. Follow up for a 2 week post op after surgery or sooner if pain, swelling, numbness or associated symptoms, or concerns develop. I have examined the patient the following changes are noted: He does have superficial frostbite from the iovera procedure this has resulted in some granul ation tissue and scabbing I do not believe it to be infected however I did give him the option of postponing surgery to minimize risk we will not be cutting through this area and will be covered with Ioband he wishes to proceed with bilateral total knee arthroplasty, and although this some small increased risk I do not think it is unreasonable. We will prophylactically place him on 5 days of Keflex postoperatively as a precaution only. Clinical Quality Measures Falls Risk Screening/Assistive Devices Have you fallen in the past year?: Yes 02/19/24 0306 <Electronically signed by Carter Hunter DO> Date Carter Chandlerigner Signature: Date (if applicable)
[2024-03-01 10:25] LABS: Bedside Glucose 86 mg/dL (74-106)
[2024-03-01] MEDS: Cefazolin 2 GM in 0.9% Normal Saline (100mL Bag) 100 ML IV (10:45)
--- NOTE | 2024-03-01 10:45 | KNEE_PTH ---
PATIENT: MILENA LOPES LOC: 3 U#:[id number] AGE/SX: 73/M ROOM: [facility] [place] RE03/01/[address]: Dr. Carter Hunter DO : 1950 BED: 1 DIS: 03/03/2024 SPEC #: [id number] RECD: 03/01/24 16:29 STATUS: SHANT HUNTLEY #: [id number] KIRK: 03/01/24 10:[address]: Carter Hunter DEPT: SURGICAL PATHOLOGY RECD BY: Angle Serrato ENTERED: 03/02/24 07:04 SP TYPE: TOTAL KNEE OTHR DR: DO Dr. Rajni Hogue DO Tissues: A - Knee, NOS B - Knee, NOS Procedures: Decalcification bone/plaque Surgery Specimen Level IV HEADER OPERATION: Bilateral total knee replacement robotic arm assist PRE-OP DIAGNOSIS: Primary osteoarthritis of both knees, Post-primary osteoarthritis of both knees TISSUE SUBMITTED: A- Left knee bone and soft tissue, B- Right knee bone and soft tissue MICROSCOPIC DIAGNOSIS A. Bone and soft tissue, left knee, total knee replacement/resection: Pieces of bone with severe degenerative osteoarthritic changes. Focal osteonecrosis with reactive changes and moderate chronic inflammation. B. Bone and soft tissue, right knee, total knee replacement/resection: Pieces of bone with degenerative osteoarthritic changes. SJ: 03/07/2024 COMMENT Case has been reviewed in consultation with Dr. Issa who concurs with the above diagnosis. IDC:AM MICROSCOPIC DESCRIPTION Slides are reviewed. GROSS DESCRIPTION A. Received is one container designated bone and soft tissue left knee. The specimen consists of multiple fragments of quinones-yellow bone measuring in aggregate 10.0 x 11.0 x 3.0 cm. No soft tissue is identified. A number of bony fragments contain articular surfaces consistent with tibial plateau and femoral condyle and displaying prominent osteophyte formation, eburnation and bone erosion. Retail Advisor sections are submitted in one cassette after decalcification. B. Received is one container designated bone and soft tissue right knee. The specimen consists of multiple fragments of quinones-yellow bone measuring in aggregate 11.0 x 10.0 x 3.5 cm. No soft tissue is identified. A number of bony fragments contain articular surfaces consistent with tibial plateau and femoral condyle and displaying prominent osteophyte formation, eburnation and bone erosion. Retail Advisor sections are submitted in one cassette after decalcification. Dominique 03/02/2024 TC:5 CPT: 02552z0, [id number]
[2024-03-01] MEDS: dexAMETHasone 10 MG/ML Vial IV (11:00)
[2024-03-01] MEDS: TXA 1000mg in NS100 100ml (IVPB at Incision) 660 MG IV (11:00)
[2024-03-01] MEDS: TXA 1000mg in NS100 100ml (IVPB at Closure) 660 MG IV (11:23)
[2024-03-01] MEDS: Bupivacaine 0.5% PF 10 ML VIAL (11:35)
[2024-03-01] MEDS: 0.9% Normal Saline (Pres. free 10 ML Vial (11:36)
[2024-03-01] MEDS: Epinephrine (1 mg/ml) 1 MG/ML VIAL (11:36)
[2024-03-01] MEDS: dexAMETHasone 4 MG/ML Vial (11:37)
[2024-03-01] MEDS: Lactated Ringers 1,000 ML 125 ML IV (15:00)
--- NOTE | 2024-03-01 15:46 | PCM.OP.BLANK ---
Operative Report Date of Procedure: 03/01/24 Preoperative diagnosis: Bilateral knee DJD Postoperative diagnosis: Same Procedure: Bilateral total knee arthroplasty CT guided Robotic Assisted Implant: Bilateral Ángel triathlon press fit, femoral component size6, tibial baseplate size 6, asymmetric patella size 38, polyethylene X3 size 9 CS Anesthesia: General With adductor canal block Tourniquet time: 14 minutes per side minutes at 300 mmHg Complications: None Condition: Stable to PACU Estimated blood loss: 375 cc Reception Agent Rashle Craig. My physician kindergarten assistant was a vital part of this case. He was important in appropriate retraction during the case, and protection of soft tissues during procedure. His intimate knowledge of the case and my steps aided in safe and expedient completion of the procedure as well as appropriate position of the extremity during the case. He was also vital in assisting with closure under my direct supervision. Indication for procedure: This is a 73-year-old male with long standing degenerative joint disease of the bilateral knee who has failed conservative treatment and wished to proceed with elective total knee arthroplasty. Risk benefits and alternatives were reviewed including; risk of bleeding, infection, nerve artery and tissue damage, continued pain, postoperative stiffness, venous thromboembolism, need for postoperative rehabilitation, mechanical feel to the knee, and expected postoperative course. The pre- operative CT and templating was performed with component sizing. Thorough discussion was had with the patient regarding the amount of surgery he is about to undertake as by lateral total knee arthroplasty is quite extensive is going to come with significant recovery. And pain he understands and does wish to proceed with both at the same time. Procedure #1: The patient was met in the preoperative holding area. The operative extremity was identified by both patient and physician and was marked. Patient was met by anesthesia. An adductor canal block was placed by anesthesia postoperatively the patient was brought back to the operating room on a wheeled cart and transferred to the operating table in the supine position. Anesthesia was started. A well-padded tourniquet was placed on the left lower extremity. The patient was prepped and draped in the usual sterile fashion. A timeout was called to ensure the proper patient procedure and extremity were being contemplated. An esmarch was used to exsanguinate the extremity. The tourniquet was inflated. A 10 blade scalpel was used to make a midline incision down through the skin and subcutaneous tissue. Skin retractors placed. Bovie and Aquamantis were used to perform meticulous hemostasis. full-thickness flaps were elevated medial and lateral along the joint capsule. A deep blade scalpel was used to perform a medial parapatellar arthrotomy. The knee was brought to full extension. A bovie was used to release the soft tissues off the most proximal aspect of the medial tibial plateau, a three-quarter inch curved osteotome was also used in this process. The infrapatellar fat pad was excised. The suprapatellar fat pad was excised partially anteriorolateraly and portion the anterioromedial pad was elevated from the femur. At this point our intra-articular femoral array was placed at a 45 degree angle proximal and posterior to the medial epicondyle. femoral checkpoint was placed at this time. Our tibial array was placed partially intra incisional 1 stab incision was made for the inferior pin with a 15 blade scaple, and pins were placed and attached to the tibial array , tibial checkpoint was placed in the proximal tibial metaphysis. Tourniquet was let down. At this point registration brunson were taken throughout the knee . Once the knee was registered we then tensioned the medial and lateral ligaments in extension and 90 degrees of flexion. We then used these numbers to adjust our components within parameters to balance the knee in both flexion and extension once this was done on our monitor we then proceeded with using the robotic arm to make our tibial plateau cut, anterior and posterior chamfer and distal femur cuts. we removed the cut fragments with the use of a bovie and Al, we did use a lamina street light repairer helper to insure we visualized and removed all posterior osteophytes and at this time also used the Aquamantis on the posterior joint capsule. we then trialed and achieved the desired plan with a well-balanced knee. we used the green probe to luis the corresponding tibial rotation based on our CT template. Lug holes were drilled in the femur the tibia preparation was completed with the appropriate sized base plate pinned based on previous rotation luis. An appropriate sized fin punch was used on the tibia and 4 corner drill was used for the press fit component and the patella was prepared by first using a caliper to ensure sufficient bone stock and a patellar reamer to remove the desired amount of bone. lug holes drilled for an asymmetric poly. We then brought the knee through range of motion with excellent patellar tracking. We thoroughly irrigated the knee. Trial components were removed a posterior capsular injection was preformed with our standard cocktail. In addition the aqua Mantis was also used to aid in hemostasis. Betadine rinse was allowed to sit and washed out completely. Components were press-fit into place. Aricept rinse was then used followed by several more liters of irrigation after it was allowed to sit. The joint capsule was closed with #1 Ethibond [id number] in the upper part of the arthrotomy and #1 Vicryl in the lower part of the arthrotomy. , Followed by 2-0 Vicryl in the subcutaneous tissues with trista in the skin. Arrays and checkpoints were removed prior to closure all counts were correct stab incisions were closed with a staple standard dressing in the form of Mepilex AG for the main incision and a small Mepilex over the pin holes. Thigh-high LAURIE hose applied over top of dressing. All of the drapes were taken down and completely new sterile table and instruments were used and the procedure was repeated in the similar manner on the right side. Patient tolerated the procedure well and was directed to PACU in stable condition . There were no intraoperative complications.
--- NOTE | 2024-03-01 15:55 | RAD_ITS ---
STUDY: X-RAY - RIGHT KNEE REASON FOR EXAM: Male, 73 years old. post op -- AP and Lateral xray of operative knee in PACU TECHNIQUE: AP and lateral view(s) of the knee. COMPARISON: None. FINDINGS: Right knee prosthesis has been placed in anatomic alignment and position. There is residual fluid noted within the suprapatella bursa postsurgically and surgical clips within the soft tissues at the operative site . RAD/Knee 1 or 2 Views IMPRESSION: Status post knee prosthesis placement Electronically Signed: Cyrus Garcia MD at 16:44 EDT ,
--- NOTE | 2024-03-01 15:55 | RAD_ITS ---
STUDY: X-RAY - LEFT KNEE REASON FOR EXAM: Male, 73 years old. post op -- AP and Lateral xray of operative knee in PACU TECHNIQUE: 2 view(s) of the knee. COMPARISON: None. FINDINGS: Left knee prosthesis has been placed in anatomic alignment and position. There is residual suprapatella bursal effusion and surgical clips in the soft tissues at the operative site. . RAD/Knee 1 or 2 Views IMPRESSION: Status post knee prosthesis placement. Electronically Signed: Cyrus Garcia MD at 16:45 EDT ,
--- NOTE | 2024-03-01 16:17 | PCM.POST.ANE ---
Anesthesia: Postop Eval I Current Vital Signs Temperature: 98.7 F Pulse Rate: 60 Blood Pressure: 112/69 Respiratory Rate: 12 Pulse Ox: 100 Oxygen Delivery Method: Room Air Assessment Airway patent: Yes Spontaneous unlabored respirations: Yes Mental status: Awake and Calm nausea: No Vomiting: No Anesthesia Complication: No Fluid Hydration Crystalloid volume administer (ml): 2,500 Total IV fluid infused: 2,500 Progress Note Anesthesia document: Postop Eval 1 completed: Yes
--- NOTE | 2024-03-01 16:21 | POSTOPAN2_ITS ---
Anesthesia Postop Eval I Sum Postop Eval Completion status Anesthesia document: Postop Eval 1 completed: Yes Anesthesia Postop Eval I Summary Anesthesia Postop Eval I Summary: Anesthesia Postop Eval I: Assessment Summary Airway patent Yes 03/01/24 16:18 [email or web address] Spontaneous unlabored Yes 03/01/24 16:18 [email or web address] respirations Mental status Awake,Calm 03/01/24 16:18 [email or web address] nausea No 03/01/24 16:18 HAT [email or web address] Vomiting No 03/01/24 16:18 [email or web address] Anesthesia Postop Eval I: Fluid Summary Crystalloid volume administer 2,500 03/01/24 16:18 [email or web address] (ml) Colloids volume administered ( ml) Blood Product volume administered (ml) Total IV fluid infused 2,500 03/01/24 16:18 [email or web address] [email or web address] Anesthesia Postop Eval I: Summary Notes Anesthesia Complication No 03/01/24 16:18 [email or web address] Anesthesia Complication Comment: Post-operative progress note Anesthesia: Postop Eval II Evaluation Mental status: Calm and Asleep Pain Level: 0 nausea: No Vomiting: No Complications Anesthesia Complication: No
--- NOTE | 2024-03-01 16:21 | PCM.POSTANE2 ---
Anesthesia Postop Eval I Sum Postop Eval Completion status Anesthesia document: Postop Eval 1 completed: Yes Anesthesia Postop Eval I Summary Anesthesia Postop Eval I Summary: Anesthesia Postop Eval I: Assessment Summary Airway patent Yes 03/01/24 16:18 [email or web address] Spontaneous unlabored Yes 03/01/24 16:18 [email or web address] respirations Mental status Awake,Calm 03/01/24 16:18 PROJECT [email or web address] nausea No 03/01/24 16:18 PROJECT [email or web address] Vomiting No 03/01/24 16:18 PROJECT [email or web address] Anesthesia Postop Eval I: Fluid Summary Crystalloid volume administer 2,500 03/01/24 16:18 [email or web address] (ml) Colloids volume administered ( ml) Blood Product volume administered (ml) Total IV fluid infused 2,500 03/01/24 16:18 PROJECT [email or web address] Anesthesia Postop Eval I: Summary Notes Anesthesia Complication No 03/01/24 16:18 [email or web address] Anesthesia Complication Comment: Post-operative progress note Anesthesia: Postop Eval II Evaluation Mental status: Calm and Asleep Pain Level: 0 nausea: No Vomiting: No Complications Anesthesia Complication: No
--- NOTE | 2024-03-01 16:47 | PCM.PN.HOSP ---
Reason for Visit Reason for Visit: B Knee osteoarthritis Subjective Subjective Patient is a 73-year-old male who was admitted electively today for bilateral severe knee osteoarthritis requiring bilateral total knee arthroplasties. He failed conservative therapy as an outpatient and wished to proceed with total knee arthroplasty. Patient has a medical history of anxiety and depression and hypertension. We were consulted postoperatively for medical management of his chronic medical issues. Preoperative laboratory data were reviewed and were overtly unremarkable. Patient was seen on medical floor after surgery. Patient denies any significant complaints at this time other than being sleepy. Eating some Jell-O and is at the bedside. Denies any needs at this time. Objective Data Objective Data Vital Signs: Vital Signs Temp Pulse Resp BP Pulse Ox O2 Del Method 97.9 F 59 L 16 106/65 98 Room Air 03/01/24 16:45 03/01/24 16:45 03/01/24 16:45 03/01/24 16:45 03/01/24 16:45 03/01/24 16:45 Oxygen Delivery Method Room Air Weight: 84 kg Body Mass Index (BMI) 29.9 Intake & Output: Intake and Output for Last 24 Hours 02/28/24 02/29/24 03/01/24 23:59 23:59 23:59 Intake Total 330 / 330 Balance 330 / 330 Lab / Micro Data 02/16/24 09:59 02/16/24 09:59 Labs: Laboratory Results - last 24 hr 03/01/24 08:59: POC Glucose 86 Micro: Microbiology 02/16/24 09:59 Swab (Method) Nasal Screen MRSA/MSSA - Final Radiography Diagnostic Testing: Radiology Impression Knee X-Ray 03/01/24 15:55 IMPRESSION: Status post knee prosthesis placement Electronically Signed: Cyrus Garcia MD at 16:44 EDT , Knee X-Ray 03/01/24 15:55 IMPRESSION: Status post knee prosthesis placement. Electronically Signed: Cyrus Garcia MD at 16:45 EDT , Physical Exam Const alert, oriented x3, no apparent distress, healthy appearing and well nourished Constitutional Narrative: Older, Oriental Orthodox white male sitting up in bed, appears groggy but intermittently eating some green Jell-O, does not appear uncomfortable or toxic, at bedside HEENT head/scalp atraumatic and moist oral mucous membranes HEENT Narrative: Dentition is poor, Mallampati is 2, no thrush Head and Scalp: normocephalic Resp normal respiratory effort, no retractions, no use of accessory muscles and clear to auscultation bilaterally Auscultation: Negative for rales, rhonchi or wheezes Cardio regular rate, regular rhythm, S1 normal heart sound, S2 normal heart sound, no murmurs, no rub, no gallops and no clicks GI normal to inspection, nondistended, normoactive bowel sounds, soft to palpation and non-tender Extremity no clubbing, cyanosis or edema Extremity Narrative: Bilateral lower extremity LAURIE hose in place, polar ice on bilateral lower extremities Neuro oriented x3 and no focal motor deficits Speech: speech normal Psych Psych Narrative: Calm, somewhat groggy but appropriate for current condition/situation, interacts appropriately with questions Assessment & Plan Assessment/Plan (1) Degenerative arthritis of knee, bilateral: QUALIFIERS: Osteoarthritis type: primary Qualified Code(s): M17.0 - Bilateral primary osteoarthritis of knee PLAN: Plan B Knee Osteoarthritis -POD 0 B TKA -Mgt per primary -PRN Pain meds -Would recommend a scheduled bowel regimen -Suspect weightbearing as tolerated bilateral lower extremities -PT/OT per primary service Hypertension -Continue home lisinopril History of migraine headaches -Patient takes no prophylactic medication -As needed Tylenol is available Anxiety/depression -Continue home lorazepam -Continue home sertraline DVT prophylaxis -Per primary service Charges/Coding Visit Charges Inpatient E&M: 27735 Subs Hosp L2
[2024-03-01] MEDS: Cefazolin 1 GM/50 ML BAG IV (18:10)
[2024-03-01] MEDS: 0.9% Normal Saline (1000mL) 1,000 ML 125 ML IV (20:06)
[2024-03-02 00:43] VITALS: BP 107/75; PULSE 80; RESP 16; TEMP 36.2; O2SAT 96
[2024-03-02 00:57] VITALS: BMI 29.9
[2024-03-02] MEDS: Cefazolin 1 GM/50 ML BAG IV (04:16)
[2024-03-02] MEDS: 0.9% Normal Saline (1000mL) 1,000 ML 125 ML IV ×2 (04:18→11:44)
[2024-03-02 04:57] VITALS: BMI 29.9
[2024-03-02 06:23] VITALS: BP 123/74; PULSE 78; RESP 16; TEMP 36.6; O2SAT 97
[2024-03-02] MEDS: APIXABAN 2.5 MG TABLET (WCH) PO ×2 (06:25→22:27)
[2024-03-02] MEDS: Acetaminophen 500 MG Tablet 1000 MG PO ×3 (06:25→22:05)
[2024-03-02 06:45] LABS: Hematocrit 30.4 % (40-54); Mean Corp Hgb Conc 32.9 g/dL (32-36); Mean Corpuscular Hgb 29.2 pg (27.0-32.0); Mean Corpuscular Volume 88.9 fL (80-94); Mean Platelet Vol. 9.6 fl (6.2-12.0); Platelet Count 236 K/mm3 (150-450); RBC Distribution Width CV 12.6 % (11.6-14.6); RBC Distribution Width SD 40.9 fl (35.1-43.9); Red Blood Count 3.42 M/mm3 (4.6-6.2); White Blood Count 16.4 K/mm3 (4.4-11.0)
[2024-03-02 06:59] LABS: Anion Gap 10 (5-15); BUN 17 mg/dL (7-18); BUN/Creat Ratio 17.9 RATIO (10-20); Calcium,Total 8.1 mg/dL (8.5-10.1); Chloride 103 mmol/L (98-107); Creatinine, Serum 0.95 mg/dL (0.70-1.30); EST Glomerular Filtration Rate 83 mL/min (>60); Est Glom Filt Rate - Afr Amer 101 mL/min (>60); Estimated Creatinine Clearance 72.51 ml/min; Glucose 142 mg/dL (74-106); Potassium 4.1 mmol/L (3.5-5.1); Sodium Level 137 mmol/L (136-145)
[2024-03-02 08:34] VITALS: BP 109/69; PULSE 88; RESP 18; TEMP 37.2; O2SAT 97
[2024-03-02] MEDS: oxyCODONE 5 MG Tablet PO (08:40)
[2024-03-02] MEDS: Sertraline 100 MG Tablet PO (08:40)
[2024-03-02] MEDS: Senna/Docusate Sodium 1 Tablet 2 TABLET PO ×2 (08:40→22:27)
[2024-03-02] MEDS: Ondansetron 4 MG/2 ML Vial IV (08:40)
[2024-03-02] MEDS: 0.9% Saline Lock 10 ML Syringe IV ×3 (11:13→22:06)
[2024-03-02] MEDS: Ketorolac 15 MG/ML Vial IV ×2 (11:13→18:00)
[2024-03-02 11:17] VITALS: BP 94/55; PULSE 90; RESP 18; TEMP 36.7; O2SAT 92
[2024-03-02 11:18] VITALS: BMI 29.9
--- NOTE | 2024-03-02 11:30 | CASEMGMT ---
Addendum entered by Lazaro Parker 03/02/24 15:17: Therapy has worked w/pt today and per verbal report from Ammy, SNF is highly recommended, stating pt only able to ambulate 5-10 ft at a time and easily fatigued. She was made aware pt is wishing to dc home. She states if he does dc home, then 24/7 care for the 1st couple of days is recommended. RN CM to room to further discuss dc planning. Pt sitting up in chair. Son, Macario, and his @ bedside. They were all made aware of SNF being highly recommended by therapy. Pt adamant he wishes to dc home and does not wish to go to a SNF. He also does not want HHC. He states his family members can all take turns to be w/him 24/7 and Macario and his both confirm the family is able to provide 24/7 care for pt and they are agreeable to plan of him dc'ing home. Dr Hunter made aware of the above. Plan is for discharge home tomorrow. Pt and family aware [facility] van only available to take pt home tomorrow @ 0930. They all discussed this and feel pt dc'ing home later in the day would work better. They will hire a line haul truck driver. Pt would like to get his meds delivered to his room tomorrow prior to discharge. RN, Moraima, made aware. Original Note: RN?CM?RN ENTEROSTOMAL?CM?to room to meet with patient for initial transition planning/care coordination?assessment.?RN?CM?introduced self and role at [facility].? Pt voices understanding and consents to?assessment?at this time.? Pt sitting up in chair in no distress at this time.?Son, Macario, and dtr-in-law @ bedside and pt agreeable to them being present during assessment. Pt is A/O at this time and answers all questions appropriately.?? Care providers, pharmacy, and demographics verified/updated at this time. PCP: Dr Carter Specialists: Dr Hunter-micki Preferred Pharmacy: [facility] @ dc. Insurance: [facility] Package Plan. ACFG Prescription Benefit:?none. Pt to dc on Eliquis. Made aware 30-day free trial offer card will be applied @ [facility] pharmacy.. Aware this is a risi-yp-g-lifetime use card. Pt/family voice understanding. HCPOA/LW: Pt does not have either. Initially he stated had a LW, but upon further discussion, it was determined he does not. Pt and family provided w/AD booklet/info and made aware of pt decides would like to complete that these can be done while @ [facility], if SW available, or as an OP. They voice understanding. LNOK: 7 adult children. He states no one in his family has a cell phone. He states the # listed under his name is a phone patel and a message can be left on this line. He states someone checks this a couple times a day. He also has Macario William listed, who is his cost and risk analysis manager and Macario would be able to reach someone in the family, if needed. Living Arrangements: Lives alone in one-story home w/no steps to enter. Family lives in an adjacent house on same property (about 150-200 ft away). Pt is independent w/ADL's and works at a wood shop. Family assists w/meals and able to further assist as needed. Transportation: Hire drivers. Would like to use [facility] van transport home tomorrow. Made aware they do not always have availability/time slots available. He states, if necessary, he can hire a line haul truck driver to take him home. Call placed to call center. Only one time slot available tomorrow for van transport, which is 0930. Will notify pt/family. DME: ?Pt has grab bars, shower chair, RTS, walker, and cane. HHC/SNF: No hx of either. Pt wishes to discharge home and already has OP therapy set up @ [place] this Thursday and [facility] van set up to take him. He requested that it is the mini-van so he can get in/out easier. He Call placed to call center for [facility] van transport. Mini-van is scheduled for Thursday pick-up @ 0830 for 0900 [employer] appt. Pt made aware. Pt wishes to return home and states has no concerns with going home at time of discharge.? CM?to follow for any further discharge planning/needs.? Pt voices no further concerns/needs at this time.? Advised pt to ask for?CM?if any further questions/concerns/needs arise.? Voices understanding. Plan:??Home w/family support and OP therapy @ [facility]. Dalila LONDONON?RN?CM
--- NOTE | 2024-03-02 12:19 | PN.ORTHO_ITS ---
Subjective Subjective Seen and examined. Doing okay. Physical therapy recommends to stay another day for continued therapy. No fevers chills nausea vomiting shortness of breath or chest pain. Objective Data Objective Data Vital Signs: Vital Signs Temp Pulse Resp BP Pulse Ox O2 Del Method 98.1 F 90 18 94/55 L 92 Room Air 03/02/24 11:17 03/02/24 11:17 03/02/24 11:17 03/02/24 11:17 03/02/24 11:17 03/02/24 11:17 Oxygen Delivery Method Room Air Weight: 185 lb 3.013 oz Body Mass Index (BMI) 29.9 Intake & Output: Intake and Output for Last 24 Hours 02/29/24 03/01/24 03/02/24 23:59 23:59 23:59 Intake Total 3344.5 / 3344.5 1829.17 / 1829.17 Output Total 125 / 125 Balance 3344.5 / 3344.5 1704.17 / 1704.17 Lab / Micro Data 03/02/24 06:22 03/02/24 06:22 Labs: Laboratory Results - last 24 hr 03/02/24 06:22: WBC 16.4 H, RBC 3.42 L, Hgb 10.0 L, Hct 30.4 L, MCV 88.9, MCH 29.2, MCHC 32.9, RDW Std Deviation 40.9, RDW Coeff of Joesph 12.6, Plt Count 236, MPV 9.6, Sodium 137, Potassium 4.1, Chloride 103, Carbon Dioxide 24.0, Anion Gap 10, BUN 17, Creatinine 0.95, Estim Creat Clear Calc 72.51, Est GFR (MDRD) Af Amer 101, Est GFR (MDRD) Non-Af 83, BUN/Creatinine Ratio 17.9, Glucose 142 H, C alcium 8.1 L Micro: Microbiology 02/16/24 09:59 Swab (Method) Nasal Screen MRSA/MSSA - Final Radiography Diagnostic Testing: Radiology Impression Knee X-Ray 03/01/24 15:55 IMPRESSION: Status post knee prosthesis placement Electronically Signed: Cyrus Garcia MD at 16:44 EDT , Knee X-Ray 03/01/24 15:55 IMPRESSION: Status post knee prosthesis placement. Electronically Signed: Cyrus Garcia MD at 16:45 EDT , Physical Exam Const alert, oriented x3 and no apparent distress General Appearance: cooperative Extremity Extremity Narrative: Bilateral lower extremities neurovascular intact compartments soft dressings clean dry intact. Assessment & Plan Assessment/Plan (1) Degenerative arthritis of knee, bilateral: QUALIFIERS: Osteoarthritis type: primary Qualified Code(s): M17.0 - Bilateral primary osteoarthritis of knee PLAN: Plan Postop day #1 bilateral total knee arthroplasty PT OT weightbearing as tolerated DVT prophylaxis SCDs LAURIE red Eliquis 2.5 mg twice daily for 2 weeks postop Outpatient physical therapy upon discharge Follow-up 2 weeks postop DC planning home tomorrow
--- NOTE | 2024-03-02 12:24 | DCINST_ITS ---
Discharge Instructions Diet Discharge Diet: No restrictions Activity Weight Bearing Status: Weight bearing as tolerated Dressing / Incision Call your doctor if you observe: Shortness of breath and Chest pain Additional Dressing/Incision Instructions:: Ice and elevate lower extremities 2 weeks while not ambulating. Ambulation is encouraged. Weight bearing as tolerated. Use assistive devise for stability. Encourage FULL knee extension and flexion 1 time EVERY time you get up and down and MULTIPLE times per day. No showering until 72 hours after surgery. Begin showering postop day #3. Remove the dressing prior to shower and gently wash with warm water and antibacterial soap then pat dry and place abdominal pad (or plain gauze) and LAURIE hose over top. This is to be done daily. Do not submerge for 3 weeks. If not showering daily after the initial 72 hours and dressing remains intact and undisturbed then you must clean incision and change dressing daily after 1 week. Do not allow animals near the incision area. Keep clean. Follow anti- coagulation recommendations as prescribed. Do not take any NSAIDs while on blood thinner. Do not take any additional narcotic pain medication other than what was prescribed on your surgery day without discussing with physician. Narcotic medication can be addictive. Do not drink alcohol while taking narcotics. Supplement narcotic prescription with acetaminophen 1000 mg 4 times a day. Start physical therapy. If you are not currently scheduled for physical therapy or you are unsure of appointment time please call office [facility] to arrange. Call Dr. Hunter with any concerns. Follow Up Care Please Follow Up With: Carter Hunter DO When: 2 weeks Test Results: Test results from this visit will be discussed in further detail at your follow- up appointment, if applicable. Discharge Plan Admission Admit Date/Time: 03/01/24 08:19 Primary Reason for Your Visit: Bilateral total knee arthroplasty Attending Provider: Carter Hunter Primary Care Provider: Ellis Carter Consulting Providers: Taylor Velazquez Discharge Orders/Prescriptions Prescriptions: New acetaminophen 500 mg tablet 1,000 mg PO Q6H PRN (Reason: pain) Qty: 90 0RF cephalexin 500 mg capsule 1,000 mg PO Q8H 5 Days Qty: 15 0RF oxycodone 5 mg tablet 5 - 10 mg PO Q6H PRN (Reason: pain) 7 Days Qty: 60 0RF Eliquis 2.5 mg tablet 2.5 mg PO BID Qty: 30 0RF Rx Instructions: Begin morning after surgery. No Action sertraline 100 MG tablet 100 mg PO DAILY Patient Comments: PT STATE HE TAKE 1/2 TAB IN AM AND 1/2 TAB IN EVENING lorazepam 1 MG tablet 0.5 - 1 mg PO BID multivitamin [Daily Multi-Vitamin] Tablet 1 - 2 tab PO DAILY Patient Comments: PT STATES HE TAKE 1-2 TABS DAILY DEPENDING ON HOW HE FEELS garlic extract 1 tab PO DAILY lisinopril 5 mg Tablet 5 mg PO DAILY 30 Days Qty: 30 1RF Rx Instructions: Hold for SBP less than 130 mmHg Referrals / Follow Up: Ellis Carter DO [Primary Care Provider] - Disposition Disposition (needs filled in before D/C Order can be placed): Home, Self Care
--- NOTE | 2024-03-02 12:37 | PN.HOSP_ITS ---
Reason for Visit Reason for Visit: Diagnoses Other acute postprocedural pain (03/01/24) Bilateral primary osteoarthritis of knee (03/01/24) Encounter for other preprocedural examination (03/01/24) Subjective Subjective Patient doing well overall, had a little bit of nausea after he ate earlier but feeling better at this time. No new or acute complaints Objective Data Objective Data Vital Signs: Vital Signs Temp Pulse Resp BP Pulse Ox O2 Del Method 98.1 F 90 18 94/55 L 92 Room Air 03/02/24 11:17 03/02/24 11:17 03/02/24 11:17 03/02/24 11:17 03/02/24 11:17 03/02/24 11:17 Oxygen Delivery Method Room Air Weight: 84 kg Body Mass Index (BMI) 29.9 Intake & Output: Intake and Output for Last 24 Hours 02/29/24 03/01/24 03/02/24 23:59 23:59 23:59 Intake Total 3344.5 / 3344.5 1829.17 / 1829.17 Output Total 125 / 125 Balance 3344.5 / 3344.5 1704.17 / 1704.17 Lab / Micro Data 03/02/24 06:22 03/02/24 06:22 Labs: Laboratory Results - last 24 hr 03/02/24 06:22: WBC 16.4 H, RBC 3.42 L, Hgb 10.0 L, Hct 30.4 L, MCV 88.9, MCH 29.2, MCHC 32.9, RDW Std Deviation 40.9, RDW Coeff of Joesph 12.6, Plt Count 236, MPV 9.6, Sodium 137, Potassium 4.1, Chloride 103, Carbon Dioxide 24.0, Anion Gap 10, BUN 17, Creatinine 0.95, Estim Creat Clear Calc 72.51, Est GFR (MDRD) Af Amer 101, Est GFR (MDRD) Non-Af 83, BUN/Creatinine Ratio 17.9, Glucose 142 H, C alcium 8.1 L Micro: Microbiology 02/16/24 09:59 Swab (Method) Nasal Screen MRSA/MSSA - Final Radiography Diagnostic Testing: Radiology Impression Knee X-Ray 03/01/24 15:55 IMPRESSION: Status post knee prosthesis placement Electronically Signed: Cyrus Garcia MD at 16:44 EDT , Knee X-Ray 03/01/24 15:55 IMPRESSION: Status post knee prosthesis placement. Electronically Signed: Cyrus Garcia MD at 16:45 EDT , Physical Exam Narrative General: Alert, oriented, no apparent distress HEENT: Atraumatic, normocephalic Eyes: extraocular movements grossly intact Neck: Supple Respiratory: normal respiratory effort Cardiovascular: no edema appreciated GI: nondistended Extremities: Moving all extremities Neuro: No overt focal neurological deficits Psych: Cooperative Assessment & Plan Assessment/Plan (1) Degenerative arthritis of knee, bilateral: QUALIFIERS: Osteoarthritis type: primary Qualified Code(s): M17.0 - Bilateral primary osteoarthritis of knee PLAN: Plan B Knee Osteoarthritis -POD 0 B TKA -Mgt per primary -PRN Pain meds -Would recommend a scheduled bowel regimen -Suspect weightbearing as tolerated bilateral lower extremities -PT/OT per primary service -03/02: Doing well, weightbearing as tolerated, plan is for discharge and outpatient therapy. Management per primary Hypertension -Continue home lisinopril -03/02: Slightly low this a.m. however patient asymptomatic, patient be discharged home today and given patient stable and asymptomatic do not think patient requires continued hospitalization for management of this History of migraine headaches -Patient takes no prophylactic medication -As needed Tylenol is available -03/02: No complaints at present Anxiety/depression -Continue home lorazepam -Continue home sertraline -03/02: No complaints at present DVT prophylaxis -Per primary service Charges/Coding Visit Charges Office Visits / Consults: 14027 OP Consult L1
[2024-03-02 14:32] VITALS: BP 129/76; PULSE 94; RESP 18; TEMP 37.3; O2SAT 96; BMI 29.9
[2024-03-02] MEDS: LORazepam 1 MG Tablet 0.5 MG PO (14:39)
[2024-03-02 20:38] VITALS: BP 107/69; PULSE 79; RESP 18; TEMP 36.4; O2SAT 96
[2024-03-02 20:40] VITALS: BMI 29.9
[2024-03-02] MEDS: LORazepam 0.5 MG Tablet PO (22:05)
[2024-03-03 04:58] VITALS: BP 129/79; PULSE 70; RESP 18; TEMP 36.3; O2SAT 98
[2024-03-03] MEDS: oxyCODONE 5 MG Tablet PO ×3 (04:59→13:49)
[2024-03-03] MEDS: Acetaminophen 500 MG Tablet 1000 MG PO ×2 (05:00→13:48)
--- NOTE | 2024-03-03 05:46 | PN.ORTHO_ITS ---
Subjective Subjective Seen and examined. Pain controlled. Denies nausea vomit shortness of breath or chest pain he is urinating and passing gas he is eating. Patient wishes to be discharged home despite us discussing with him all recommendations for rehab. Objective Data Objective Data Vital Signs: Vital Signs Temp Pulse Resp BP Pulse Ox O2 Del Method 97.4 F L 70 18 129/79 H 98 Room Air 03/03/24 04:58 03/03/24 04:58 03/03/24 04:58 03/03/24 04:58 03/03/24 04:58 03/03/24 04:58 Oxygen Delivery Method Room Air Weight: 185 lb 3.013 oz Body Mass Index (BMI) 29.9 Intake & Output: Intake and Output for Last 24 Hours 03/01/24 03/02/24 03/03/24 23:59 23:59 23:59 Intake Total 3344.5 / 3344.5 2395.84 / 2395.84 Output Total 125 / 125 Balance 3344.5 / 3344.5 2270.84 / 2270.84 Lab / Micro Data 03/02/24 06:22 03/02/24 06:22 Labs: Laboratory Results - last 24 hr 03/02/24 06:22: WBC 16.4 H, RBC 3.42 L, Hgb 10.0 L, Hct 30.4 L, MCV 88.9, MCH 29.2, MCHC 32.9, RDW Std Deviation 40.9, RDW Coeff of Joesph 12.6, Plt Count 236, MPV 9.6, Sodium 137, Potassium 4.1, Chloride 103, Carbon Dioxide 24.0, Anion Gap 10, BUN 17, Creatinine 0.95, Estim Creat Clear Calc 72.51, Est GFR (MDRD) Af Amer 101, Est GFR (MDRD) Non-Af 83, BUN/Creatinine Ratio 17.9, Glucose 142 H, C alcium 8.1 L Micro: Microbiology 02/16/24 09:59 Swab (Method) Nasal Screen MRSA/MSSA - Final Physical Exam Const alert, oriented x3 and no apparent distress General Appearance: cooperative Extremity Extremity Narrative: Bilateral lower extremities neurovascular intact compartments soft dressings clean dry intact. Assessment & Plan Assessment/Plan (1) S/P total knee arthroplasty: QUALIFIERS: Laterality: bilateral Qualified Code(s): Z96.653 - Presence of artificial knee joint, bilateral PLAN: Postop day #2 bilateral total knee arthroplasty PT OT weightbearing as tolerated DVT prophylaxis SCDs LAURIE red Eliquis 2.5 mg twice daily for 2 weeks Thorough discussion was had with the patient in regards to her recommendations for rehab or TCU based on his mobility. Patient does not wish to have this he is adamant he would like to go home he does have several family members that will be with him 09/02 they can help assist him I explained to him our concern is for a fall that could cause significant complication and counseled him he needs to have his walker available and human assistance at all times during ambulation for now to minimize risk of fall Encouraged him to perform full knee range of motion elevation of his legs when he is not ambulating and icing instructions reviewed again DC home this afternoon follow-up in 2 weeks outpatient physical therapy already scheduled Transport service arranged.
--- NOTE | 2024-03-03 05:50 | DS.PCM_ITS ---
Providers Date of Admission: 03/01/24 Primary Care Physician: Dr. Ellis Carter, Consultations 03/01/24 15:45 Consult: Hospitalist Routine Consulting Provider: Rajni Henriquez Reason for Consult: post op medical management EMERGENT Consult: No MD Notified: Yes Date Notified: 03/01/24 Time Notified: 16:54 Method of Notification: Text Reason For Visit: ERAS Bilateral Total Knee Replaceme Diagnosis Discharge Diagnosis (1) S/P total knee arthroplasty: Status: Acute Code(s): Z96.659 - Presence of unspecified artificial knee joint Qualifiers: Laterality: bilateral Qualified Code(s): Z96.653 - Presence of artificial knee joint, bilateral Plan: Postop day #2 bilateral total knee arthroplasty PT OT weightbearing as tolerated DVT prophylaxis SCDs LAURIE hose Eliquis 2.5 mg twice daily for 2 weeks Thorough discussion was had with the patient in regards to her recommendations for rehab or TCU based on his mobility. Patient does not wish to have this he is adamant he would like to go home he does have several family members that will be with him 09/02 they can help assist him I explained to him our concern is for a fall that could cause significant complication and counseled him he needs to have his walker available and human assistance at all times during ambulation for now to minimize risk of fall Encouraged him to perform full knee range of motion elevation of his legs when he is not ambulating and icing instructions reviewed again DC home this afternoon follow-up in 2 weeks outpatient physical therapy already scheduled Transport service arranged. Medications at Discharge Home Medications lorazepam 1 mg tablet 0.5 - 1 mg PO BID ANXIETY 05/09/20 sertraline 100 mg tablet 100 mg PO DAILY STRESS 05/09/20 garlic extract 1 tab PO DAILY SUPPLEMENT 08/11/23 multivitamin (Daily Multi-Vitamin tablet) 1 - 2 tab PO DAILY VITAMIN 08/11/23 lisinopril 5 mg tablet 5 mg PO DAILY HTN 1 month #30 tabs 08/14/23 acetaminophen 500 mg tablet 1,000 mg (2 x 500 mg) PO Q6H PRN pain #90 tabs 03/02/24 apixaban 2.5 mg tablet (Eliquis) 2.5 mg PO BID #30 tabs 03/02/24 cephalexin 500 mg capsule 1,000 mg (2 x 500 mg) PO Q8H 5 days #15 caps 03/02/24 oxycodone 5 mg tablet 5 - 10 mg (1 - 2 x 5 mg) PO Q6H PRN pain 7 days #60 tabs 03/02/24 Hospital Course Operations total knee replacement Summary of Care Provided Hospital Course: Who has 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 Patient underwent bilateral total knee arthroplasty on the admission date without any intraoperative complications. Patient did receive pre-and postoperative antibiotics which were discontinued within 23 hours postoperatively. Patient did receive general anesthesia. pain was controlled with IV and transition to p.o. pain medication Patient will be discharged home with oxycodone and will continue Tylenol as well. He had received 2gm tranexamic acid was administered there was no need for postoperative blood transfusion Patients vital signs remained stable. Patient was started on both mechanical and chemical DVT per prophylaxis postoperatively in the form of SCDs LAURIE hose and [Eliquis 2.5 mg twice daily for which she will continue for 2 additional weeks post hospital discharge]. thigh high laurie hose placed over top of the meplix silver dressing. This should be removed 7 days post operatively and showering begun daily at that time with warm water and antibacterial soap. not to submerge for 3 weeks. To change dressing daily after first dressing change. Patient did have some difficulty ambulating postoperatively although was able to do so physical therapy recommend additional transitional care however patient and family refused they state he has ample help at home and wishes to be discharged. patient will follow-up in the office in 2 weeks. No intrahospital complications. Weight / BMI Weight Weight: 185 lb 3.013 oz Body Mass Index (BMI) 29.9 ABG / Lab / Microbiology Data 03/02/24 06:22 03/02/24 06:22 Laboratory: Laboratory Results - last 24 hr 03/02/24 06:22: WBC 16.4 H, RBC 3.42 L, Hgb 10.0 L, Hct 30.4 L, MCV 88.9, MCH 29.2, MCHC 32.9, RDW Std Deviation 40.9, RDW Coeff of Joesph 12.6, Plt Count 236, MPV 9.6, Sodium 137, Potassium 4.1, Chloride 103, Carbon Dioxide 24.0, Anion Gap 10, BUN 17, Creatinine 0.95, Estim Creat Clear Calc 72.51, Est GFR (MDRD) Af Amer 101, Est GFR (MDRD) Non-Af 83, BUN/Creatinine Ratio 17.9, Glucose 142 H, C alcium 8.1 L Microbiology: Microbiology 02/16/24 09:59 Swab (Method) Nasal Screen MRSA/MSSA - Final D/C Instructions Discharge Diet: No restrictions Weight Bearing Status: Weight bearing as tolerated Call your doctor if you observe: Shortness of breath and Chest pain Additional Dressing/Incision Instructions: Ice and elevate lower extremities 2 weeks while not ambulating. Ambulation is encouraged. Weight bearing as tolerated. Use assistive devise for stability. Encourage FULL knee extension and flexion 1 time EVERY time you get up and down and MULTIPLE times per day. No showering until 72 hours after surgery. Begin showering postop day #3. Remove the dressing prior to shower and gently wash with warm water and antibacterial soap then pat dry and place abdominal pad (or plain gauze) and LAURIE hose over top. This is to be done daily. Do not submerge for 3 weeks. If not showering daily after the initial 72 hours and dressing remains intact and undisturbed then you must clean incision and change dressing daily after 1 week. Do not allow animals near the incision area. Keep clean. Follow anti- coagulation recommendations as prescribed. Do not take any NSAIDs while on blood thinner. Do not take any additional narcotic pain medication other than what was prescribed on your surgery day without discussing with physician. Narcotic medication can be addictive. Do not drink alcohol while taking narcotics. Supplement narcotic prescription with acetaminophen 1000 mg 4 times a day. Start physical therapy. If you are not currently scheduled for physical therapy or you are unsure of appointment time please call office [facility] to arrange. Call Dr. Hunter with any concerns. Please Follow Up With: Carter Hunter DO When: 2 weeks Meaningful Use Info Meaningful Use Meaningful Use Diagnoses (Choose all that apply): None applicable Ischemic Stroke Statin Dosing Therapy Reference: STATIN DOSE THERAPY REFERENCE: * Patients > 75 years receive moderate or high dose statin therapy. * Patients 75 years or YOUNGER should receive HIGH intensity statin dose unless contraindicated. You will be required to document reason for non-treatment if statin daily dose does not meet guidelines. HIGH DOSE STATIN THERAPY DAILY Atorvastatin > than or = to 40 mg Rosuvastatin > than or = to 20 mg Amlodipine + Atorvastatin > than or = to 2.5/40 mg Ezetimibe + Simvastatin 10/80 mg Simvastatin 80mg Discharge Plan Admission Admit Date/Time: 03/01/24 15:37 Primary Reason for Your Visit: Bilateral total knee arthroplasty Attending Provider: Carter Hunter Primary Care Provider: Ellis Carter Consulting Providers: Taylor Velazquez Discharge Orders/Prescriptions Prescriptions: New acetaminophen 500 mg tablet 1,000 mg PO Q6H PRN (Reason: pain) Qty: 90 0RF cephalexin 500 mg capsule 1,000 mg PO Q8H 5 Days Qty: 15 0RF oxycodone 5 mg tablet 5 - 10 mg PO Q6H PRN (Reason: pain) 7 Days Qty: 60 0RF Eliquis 2.5 mg tablet 2.5 mg PO BID Qty: 30 0RF Rx Instructions: Begin morning after surgery. No Action sertraline 100 MG tablet 100 mg PO DAILY Patient Comments: PT STATE HE TAKE 1/2 TAB IN AM AND 1/2 TAB IN EVENING lorazepam 1 MG tablet 0.5 - 1 mg PO BID multivitamin [Daily Multi-Vitamin] Tablet 1 - 2 tab PO DAILY Patient Comments: PT STATES HE TAKE 1-2 TABS DAILY DEPENDING ON HOW HE FEELS garlic extract 1 tab PO DAILY lisinopril 5 mg Tablet 5 mg PO DAILY 30 Days Qty: 30 1RF Rx Instructions: Hold for SBP less than 130 mmHg Referrals / Follow Up: Ellis Carter DO [Primary Care Provider] - Disposition Disposition (needs filled in before D/C Order can be placed): Home, Self Care
[2024-03-03] MEDS: Cephalexin 500 MG Capsule PO ×2 (06:26→13:49)
[2024-03-03 06:37] LABS: Hematocrit 26.1 % (40-54); Hemoglobin 8.5 g/dL (13.0-16.5); Mean Corp Hgb Conc 32.6 g/dL (32-36); Mean Corpuscular Volume 89.1 fL (80-94); Mean Platelet Vol. 10.1 fl (6.2-12.0); Platelet Count 187 K/mm3 (150-450); RBC Distribution Width CV 13.1 % (11.6-14.6); RBC Distribution Width SD 42.9 fl (35.1-43.9); Red Blood Count 2.93 M/mm3 (4.6-6.2); White Blood Count 13.7 K/mm3 (4.4-11.0)
[2024-03-03 07:46] VITALS: BP 123/66; PULSE 80; RESP 18; TEMP 37.2; O2SAT 98
[2024-03-03] MEDS: Ketorolac 15 MG/ML Vial IV (08:04)
[2024-03-03] MEDS: LORazepam 0.5 MG Tablet PO (08:04)
[2024-03-03] MEDS: 0.9% Saline Lock 10 ML Syringe IV (08:04)
[2024-03-03] MEDS: APIXABAN 2.5 MG TABLET (WCH) PO (08:04)
[2024-03-03] MEDS: Senna/Docusate Sodium 1 Tablet 2 TABLET PO (08:04)
[2024-03-03] MEDS: Sertraline 100 MG Tablet PO (08:07)
--- NOTE | 2024-03-03 11:35 | CASEMGMT ---
CHOLO ROBLERO NOTE: RN OSBALDO notified family interested in possible SNF placement this AM. Therapy tx from today reviewed. Pt ambulated 50 ft in halls w/therapy w/WW and CGA--HHC or OP therapy recommended. CHOLO BURNETTE to room. Pt sitting up in chair. Son, Antonio, and DILShira, @ bedside. Antonio states initially this morning they were wondering if SNF would be beneficial, but states since he has observed pt ambulating today and pt has improved from yesterday, they feel comfortable taking pt home today. Pt also voices he still wishes to discharge home, feels safe going home, has great family support, declines HHC and still wants to continue w/plan for OP therapy @ [facility] beginning tomorrow. Antonio did inquire, if once pt gets home, what to do if they change their mind re: [facility]. CHOLO ROBLERO informed him many [facility] agencies do not offer private-pay. He states would like info for [facility], as they do private-pay. He was made aware to contact either PCP or Dr Hunter for [facility] set-up if they do change their mind once returning home. Also given [facility] rac card. Pt interested in purchasing a gait belt. Made aware of locations this can be purchased. Antonio interested in getting one @ [facility]. Call placed to Priyanka @ [facility]. She confirms they have them for $15.99, in aisle [address]. Antonio made aware and states plans to go there today to purchase one. He was made aware to ask for Priyanka if he is unable to locate it. He voices appreciation. Pt and family deny having other discharge needs/concerns. They have a concrete pile driver operator scheduled to take him home @ 4 PM today after he gets therapy this afternoon. Moraima EMMANUEL, aware. Dalila LONDONON CHOLO ROBLERO
[2024-03-03 13:37] VITALS: BP 133/94; PULSE 106; RESP 18; TEMP 37.3; O2SAT 93
== END 2024-03-03 15:15 | disposition home or self-care (01) | DRG 462 ==
PROVIDERS: Anesthesiology; Admitting Provider Orthopaedic Surgery; PCP Family Medicine; Referring Provider Orthopaedic Surgery; Visit Provider Orthopaedic Surgery
PROC: 0SRD0JA Replacement of Left Knee Joint with Synthetic Substitute, Uncemented, Open Approach (ICD-10-PCS; principal; 2024-03-01 10:15)
DX: M17.0 Bilateral primary osteoarthritis of knee (principal); F32.A Depression, unspecified; I10 Essential (primary) hypertension; F41.9 Anxiety disorder, unspecified; Z79.899 Other long term (current) drug therapy
CPT/HCPCS: 36415; 73560; 80048; 82962; 82985; 83036; 83735; 85025; 85027; 85610; 85730; 86850; 86900; 86901; 87077; 87081; 88305; 88311; 93005; 94668; 97110; 97116; 97162; 97166; 97530; 97535; C1776; J7030; J7120; A4216; J2405; J3475; J3490

== ENCOUNTER 2024-05-06 13:00 | Outpatient (RCR) | payer SELFPAY, OTHER ==
--- NOTE | 2024-03-07 08:51 | HP.PTEVAL_ITS ---
Patient's Visit Information Visit Information Visit Information: MILENA LOPES is a 73 year old M referred to Physical Therapy by Dr. Carter Hunter DO with a diagnosis of B TKA, DOS: 03/01/24. Date of Evaluation: 03/04/24 Physical Therapist: Mian Zendejas DPT Visit Plan Frequency: 2-3x /Week Duration: 6 Weeks Plan: Start with ROM progressing to TKE and atleast 120deg of flexion. Add in edema control with use of ice/vaso. Progress gait and functional strengthening as tolerated. Progressing to LRD. Next visit look at removing bandage if patient has not done so. Recheck incisions. Subjective Subjective: Pt. is here today for his initial evaluation with diagnosis of B TKA. DOS: 03/01/24. Pt. arrives with use of FWW with decent tolerance. Pt. reports overall being stiff, and a bit sore. He reports no calf pain. He did have an US, negative for DVT. He denies N/T. He has been doing some of his exercises at home. He is to take bandage off in a few days. He is wearing his TEDs as prescribed. 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 No stairs at home. Pt. is hopeful to get back to work and all recreational activities without limitations. Pain R knee: Pain Intensity (Out of 10): 4 Pain Intensity Range: 2 and 6 L knee: Pain Intensity (Out of 10): 4 Pain Intensity Range: 2 and 6 Objective Objective: POSTURE: Pt. has good posture in stance. Pt. has equal wt. shift, but is a bit flexed. He does have slight loss of TKE in stance. PALPATION: Pt. has bandage in place with TEDS on. No calf pain. No signs of infection noted. NEURO: normal sensation to light and sharp touch. ROM: PROM: L knee: 0-3-90deg. R knee: 0-2-88deg. Pt. has tight B hamstrings. MMT: Pt. unable to complete SLR, but able to complete quad set. LAQ decent, but not full extension. R knee: ext 3#, flexion 8#; hip: flexion: 0# L knee: ext 4#, flexion 7#, hip: flexion 0#. GAIT: Pt. is able to ambulate with FWW, decreased knee flexion noted during swing. Decent TKE during stance phase. TU.1sec with FWW. 30sec sit to stand test: 5 with use of UEs. Balance/Special Test Scores WOMAC Total Score: 68 WOMAC Percentatge: 29.1700 Goals Goal 1:: LTG: Pt. to be I with HEP. Goal Time Frame: 4-6 Weeks Goal 2:: LTG: Pt. to have increased B knee ROM to at least 0-0-120deg allowing for increased ability to complete all functional mobility. Goal Time Frame: 4-6 Weeks Goal 3:: LTG: Pt. to completed TUG with out AD with time less than 10sec indica ting increased functional mobility. Goal Time Frame: 4-6 Weeks Goal 4:: LTG: Pt. to ambulate without AD with normalized pattern without increase in knee pain. Goal Time Frame: 4-6 Weeks Goal 5:: LTG: Pt. to completed 30sec sit to stand rep test with at least 12 reps. Goal Time Frame: 6-8 Weeks Rehabilitation Potential Physical Therapy Diagnosis: Pt. has signs and symptoms consistent with B TKE with DOS: 03/01/24. Pt. is overall doing well. He has marked hypomobility, weakness, difficulty with walking. Pt. would benefit from PT to address the above limitations progressing back to all work and recreational activities without limitations. Rehabilitation Potential: Excellent Anticipated Interventions Patient/Client Instruction: Educate patient on: Condition, Plan of Care, Risk Factors and Benefits of Fitness Program For the Purpose of:: To improve self management, To prevent re-injury, To improve ability to perform tasks related to life management and To improve tolerance to ADL's Therapeutic Exercise to Include: Strength training, Power training, Endurance training, Postural training, Flexibilty training, Passive ROM and Active ROM For the Purpose of:: To decrease pain, To decrease swelling/inflammation, To increase ROM, To improve nutrient delivery to tissue, To increase oxygenation perfusion, To improve muscle performance and motor function, To improve ability to perform ADL's, To increase tolerance to activity/condition/position, To improve gait and locomotor functions, To improve health of tissue, To decrease soft tissue restriction and To increase flexibility/ROM IF ES: Yes Other electric stimulation: Yes Cryotherapy (ice pack, ice massage): Yes Vasopneumatic device: Yes For the Purpose of:: To decrease pain, To decrease swelling/inflammation and To increase ROM Text: Thank you for the opportunity to evaluate your patient. For Medicare and Medicare HMO plans, please review the plan of care and approve it. It will need to be FAXED BACK to us at [phone] for Medicare purposes. For Medicare only, by signing this I certify the plan of care. Please let me know if there are questions or concerns regarding this plan of care. Physician Signature: Date:
--- NOTE | 2024-04-14 09:22 | HP.PTREVAL_ITS ---
Re-Evaluation Intro: Dr. Carter Hunter, DO, It has been my pleasure to treat MILEAN LOPES over the last 13 visits for B TKA, DOS: 03/01/24. Please see the progress note below for an update on the physical therapy plan of care! Subjective Subjective: Pt. reports overall doing much better. He reports his initial few steps after sitting are sore, but better after wards. HEP compliant. He saw physician earlier this weeks and was pleased. He has to go back to ortho in 1 year. Objective Objective/Function: AROM: R Knee: 0-0-110deg, L knee 0-0-110deg PROM: R knee: 0-0-121deg, 0-0-122deg. MMT: RLE: knee: ext: 36.5#, flexion 32.9#; hip: flexion 41# LLE: Knee: ext 33.3#, flexion: 32.2#; hip: flexion 45.8# STAIRS: Pt. is able to ascend with 1 HR with reciprocal pattern marked functional weakness, 2 HR to descend. He does heavily use HR with both ascending and descending. Pt. is overall doing very well. I like him to have increased quad strength, increased ability to negotiate steps, improved 6 MWT and improved knee flexion during swing phase of gait. Plan Plan Plan: Pt. is overall doing great . He has good ROM, continue to make sure he maintains. Add in quad strengtheing, SLS balance to aide with LB dressing, progress strength, stairs and gait progression. Balance/Gait/Functional tests Balance/Special Test Scores TUG Test Time Seconds: 9.8 Tug Test: <10 sec.=free mobile 30 Second Chair Rise Test Seconds: 8 6 Minute Walk Test: 1362 feet. average for his age is: [id number] feet WOMAC Total Score: 47 WOMAC Percentage: 51.0500 Goals Goals Goal 1:: LTG: Pt. to be I with HEP. Goal Time Frame: 4-6 Weeks Goal Progress: Goal Met Goal 2:: LTG: Pt. to have increased B knee ROM to at least 0-0-120deg allowing for increased ability to complete all functional mobility. Goal Time Frame: 4-6 Weeks Goal Progress: Goal Met Goal 3:: LTG: NEW GOAL: PT. to complete 6 MWT with distance of at least 1635feet. Goal Time Frame: 4-6 Weeks Goal Progress: Progressing Goal 4:: LTG: Pt. to ambulate without AD with normalized pattern without increase in knee pain. Goal Time Frame: 4-6 Weeks Goal Progress: Progressing Goal 5:: LTG: Pt. to completed 30sec sit to stand rep test with at least 12 reps. Goal Time Frame: 6-8 Weeks Goal Progress: Progressing Goal 6:: LTG: Pt. to negotiate stairs with 1 HR with good reciprocal pattern without functional weakness. Anticipated Interventions Anticipated Interventions Patient/Client Instruction: Educate patient on: Condition, Plan of Care, Risk Factors and Benefits of Fitness Program For the Purpose of:: To improve self management, To prevent re-injury, To improve ability to perform tasks related to life management and To improve tolerance to ADL's Therapeutic Exercise to Include: Strength training, Power training, Endurance training, Postural training, Flexibilty training, Passive ROM and Active ROM For the Purpose of:: To decrease pain, To decrease swelling/inflammation, To increase ROM, To improve nutrient delivery to tissue, To increase oxygenation perfusion, To improve muscle performance and motor function, To improve ability to perform ADL's, To increase tolerance to activity/condition/position, To i mprove gait and locomotor functions, To improve health of tissue, To decrease soft tissue restriction and To increase flexibility/ROM IF ES: Yes Other electric stimulation: Yes Cryotherapy (ice pack, ice massage): Yes Vasopneumatic device: Yes For the Purpose of:: To decrease pain, To decrease swelling/inflammation and To increase ROM Re-Evaluation Ending Re-evaluation ending: Please do not hesitate to contact me at [phone] by phone or if you have questions or concerns regarding this new plan of care! Sincerely, Mian Zendejas DPT
--- NOTE | 2024-05-10 15:37 | HP.PTDCSUM ---
Discharge Summary D/C summary: It has been my pleasure to treat MILENA LOPES referred by Dr. Carter Hunter DO, with the diagnosis of B TKA, DOS: 03/01/24 for a total of 22 visit(s). Discharge Date: 05/06/24 Please see the following information for a summary of their discharge status. Subjective Subjective: Pt. reports overall doing well. He reports minimal pain today. Pain R knee: Pain Intensity (Out of 10): 0 L knee: Pain Intensity (Out of 10): 0 Overall Improvement % Improvement: 90 Objective Objective/Function: GAIT: Pt. ambulates well without AD. He has decreased knee flexion during swing and good TKE during stance phase. ROM: L knee: 0-0-122deg. R knee 0-0-125deg. Decent HS length MMT: RLE: ankle 5/5 throughout; knee: ext 24.5#, flexion 19.7# LLE: ankle 5/5 throughout; knee: ext 23.9#, [id number] 17.7# STAIRS: pt. is able to negotiate with 1 HR with reciprocal pattern. Slight increase in symptoms in B knees with descending. Pt. is overall doing very well. He will be DC from PT at this point in time. Goals Goal 1:: LTG: Pt. to be I with HEP. Goal Progress: Goal Met Goal 2:: LTG: Pt. to have increased B knee ROM to at least 0-0-120deg allowing for increased ability to complete all functional mobility. Goal Progress: Goal Met Goal 3:: LTG: NEW GOAL: PT. to complete 6 MWT with distance of at least 1635feet. Goal Progress: Goal Met Goal 4:: LTG: Pt. to ambulate without AD with normalized pattern without increase in knee pain. Goal Progress: Goal Met Goal 5:: LTG: Pt. to completed 30sec sit to stand rep test with at least 12 reps. Goal Progress: Goal Met Goal 6:: LTG: Pt. to negotiate stairs with 1 HR with good reciprocal pattern without functional weakness. Goal Progress: Goal Met Plan Plan: DC from PT at this point in time. D/C Information Discharge Comments: Pt. to be DC from PT at this point in time. d/c sentence: If there are questions or concerns regarding this patient's physical therapy, please feel free to call me at [phone]. Thank you for the referral of this patient. Sincerely, Mian Zendejas, DPT Balance/Gait/Functional tests Balance/Special Test Scores Lower Extremity Functional Score: 59 TUG Test Time Seconds: 9.2 Tug Test: <10 sec.=free mobile 30 Second Chair Rise Test Seconds: 16 6 Minute Walk Test: 1695' without AD. Pt. did very well. WOMAC Total Score: 47 WOMAC Percentage: 51.0500 Improvement % Improvement: 90
== END 2024-05-06 19:00 | disposition home or self-care (01) ==
LOC: PT 13:00
PROVIDERS: PCP Family Medicine; Referring Provider Orthopaedic Surgery; Visit Provider Orthopaedic Surgery
DX: M17.0 Bilateral primary osteoarthritis of knee (principal)
CPT/HCPCS: 97016; 97110; 97140; 97161; 97530